=== PATIENT | female | born 1960 | race Caucasian/White ===

== ENCOUNTER → 2017-05-13 | Outpatient (CLI) | payer BC ==
[2015-09-26 15:10] VITALS: BP 130/61
[~2017-05-13] MED LIST: DULO60CA6 PO; ETAN50DI2 SQ; HYDR-971 PO; METR500T PO; PREG100C PO; SULF1TAB24 PO
--- NOTE | 2017-05-13 15:15 | RAD ---
Indication cough. A single view of the chest was obtained and is compared to a study 09/26/2015. There is no consolidated pneumonia. Heart size is similar. There is no gross congestive heart failure. No pleural fluid or pneumothorax is seen. IMPRESSION: No acute finding apparent in the chest.
== END | disposition home or self-care (01) ==
LOC: DXRADRC 13:34
PROVIDERS: ATTEND Family Medicine
DX: R49.0 Dysphonia (principal); R05 Cough
CPT/HCPCS: 71020

== ENCOUNTER 2017-07-11 17:43 | Inpatient (IN) | payer BC ==
[~2017-07-11] VITALS: Ht 157.5 cm; Wt 72.6 kg
[2017-07-11 02:00] VITALS: BP 112/70
[2017-07-11 18:57] LABS: BASO # 0.1 x10^3/uL (0.0-0.2); BASO % 1 % (0-3); EOS # 0.1 x10^3/uL (0.0-0.7); EOS % 1 % (0-3); HEMATOCRIT 40.3 % (36.0-47.0); HEMOGLOBIN 13.6 g/dL (12.0-15.5); LYMPH # 2.4 x10^3/uL (1.0-4.8); LYMPH % 29 % (24-48); MEAN CORPUSCULAR HEMOGLOBIN 33 pg (25-35); MEAN CORPUSCULAR HGB CONC 34 g/dL (31-37); MEAN CORPUSCULAR VOLUME 99 fL (79-100); MONO # 0.7 x10^3/uL (0.0-1.1); MONO % 9 % (0-9); NEUT % 61 % (31-73); PLATELET COUNT 231 x10^3/uL (140-400); RED BLOOD COUNT 4.06 x10^6/uL (3.50-5.40); RED CELL DISTRIBUTION WIDTH 15.5 % (11.5-14.5); WHITE BLOOD COUNT 8.2 x10^3/uL (4.0-11.0)
[2017-07-11] MEDS ORDERED: ASPIRIN 81 MG TAB.CHEW PO ONE (19:00)
[2017-07-11 19:09] LABS: ALBUMIN 3.5 g/dL (3.4-5.0); CALCIUM 8.7 mg/dL (8.5-10.1); CREATININE 0.7 mg/dL (0.6-1.0); GFR 86.2; TOTAL BILIRUBIN 0.4 mg/dL (0.2-1.0); TOTAL PROTEIN 6.9 g/dL (6.4-8.2)
[2017-07-11] MEDS ORDERED: methylPREDNISolone SOD SUCC PF 125 MG/2 ML VIAL. IV ONE (19:15)
[2017-07-11] MEDS ORDERED: IPRATRPIUM/ALBUTEROL 0.5/2.5MG 3 ML NEBU. NEB ONE (19:15)
[2017-07-11 19:44] LABS: AMPHETAMINE/METHAMPHETAMINE NEG (NEG); BARBITURATES NEG (NEG); BENZODIAZEPINES POS (NEG); CANNABINOIDS NEG (NEG); COCAINE NEG (NEG); METHADONE NEG (NEG); OPIATES NEG (NEG); PHENCYCLIDINE NEG (NEG)
[2017-07-11 19:45] LABS: POTASSIUM 3.5 mmol/L (3.5-5.1)
[2017-07-11] MEDS ORDERED: ONDANSETRON PF 4 MG/2 ML VIAL. IV PRN (19:45)
[2017-07-11] MEDS ORDERED: NITROGLYCERIN SUBLINGUAL 0.4 MG BOTTLE OF 25. SL PRN (19:45)
[2017-07-11] MEDS ORDERED: ACETAMINOPHEN 325 MG TABLET PO PRN (19:45)
[2017-07-11 19:48] LABS: BILIRUBIN,URINE NEG (NEG); CLARITY,URINE CLEAR; COLOR,URINE STRAW; GLUCOSE,URINE NEG (NEG)
[2017-07-11 19:49] LABS: BACTERIA,URINE 0 /HPF (0-FEW); NITRITE,URINE NEG (NEG); RBC,URINE RARE /HPF (0-2); SQUAMOUS EPITHELIAL CELL,UR OCC /LPF; UROBILINOGEN,URINE 0.2 mg/dL (0.2 mg/dL); WBC,URINE 0 /HPF (0-4)
[2017-07-11] MEDS: IPRATRPIUM/ALBUTEROL 0.5/2.5MG 3 ML NEBU. NEB SCH (20:00)
[2017-07-11 21:00] VITALS: BP 133/83
[2017-07-11] MEDS ORDERED: HYDR-2766 PO (21:53)
[2017-07-11 22:00] VITALS: BP 138/84
[2017-07-11] MEDS ORDERED: ANTI-COAG MONITOR BY PHARMACY. MC PRN (22:00)
[2017-07-11] MEDS ORDERED: TRAZ50TA15 PO (22:00)
[2017-07-11] MEDS ORDERED: PREG200C PO (22:02)
[2017-07-11] MEDS ORDERED: ALPR1TAB6 PO (22:08)
[2017-07-11] MEDS ORDERED: LEVO112T4 PO (22:14)
[2017-07-11] MEDS ORDERED: MOME13HF2 IH (22:14)
[2017-07-11] MEDS ORDERED: DULO60CA44 PO (22:14)
[2017-07-11] MEDS ORDERED: LISI1TAB5 PO (22:14)
--- NOTE | 2017-07-11 22:59 | EKG ---
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
[2017-07-11 23:00] VITALS: BP 134/82
[2017-07-11] MEDS: traZODone 50 MG TABLET. PO SCH (23:09)
[2017-07-11] MEDS: HYDROcodone/APAP 10/325 1 TAB TABLET PO PRN (23:10)
[2017-07-11] MEDS: ENOXAPARIN ** NOTE DOSE ** SYRINGE SQ SCH (23:11)
[2017-07-11] MEDS ORDERED: NON FORMULARY ITEM (Alprazolam 1 MG) PO SCH (23:15)
[2017-07-11] MEDS ORDERED: ALPRAZolam 0.5 MG TABLET PO SCH (23:15)
--- NOTE | 2017-07-11 23:58 | PHYS DOC ---
General Chief Complaint: SHORTNESS OF BREATH Stated Complaint: CP,SYNCOPE, ELEV TROP I ,RCE SWELLING Time Seen by MD: 18:40 Source: patient Exam Limitations: no limitations Problems: History of Present Illness Initial Comments Patient is a 57-year-old female who comes to the ED complaining of dyspnea. 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 She says that when she got up she felt unsteady and went to sit down to rest. She says that while sitting in a chair she had a syncopal episode however did not fall from the chair or suffer any further injury. Shortly after that she says she had a severe "asthma" attack described as shortness of breath no coughing or wheezing. She used her rescue inhaler and felt some improvement and went home where she had several beverages with honey and liquor mixed. Her symptoms persisted and she called her mother who advised her to come to the emergency department for evaluation. On arrival the patient feels as if she could just get a breathing treatment she would be better. She complains of shortness of breath, anterior chest tightness as well as throat discomfort and tightness. No arm symptoms nausea or diaphoresis. ED vitals: 99, 123, 150/103, 18, 95% room air Primary care physician is Dr. Miller. Patient's only prior cardiac workup consisted of an echocardiogram "years ago" Timing/Duration: 4-6 hours, constant Severity: moderate Modifying Factors: worse with movement, improves with rest Associated Symptoms: chest pain, malaise, shortness of breath, other Allergies: Coded Allergies: codeine (Unverified Allergy, Unknown, Nausea and Vomiting, 06/02/14) Past Medical History Medical History: other (asthma, fibromyalgia, hypertension, psoriatic arthritis ) Surgical History: noncontributory Family History Significant Family History: no pertinent family hx Social History Smoker: cigarettes Alcohol: occasionally Drugs: none Review of Systems Constitutional: denies chills, denies diaphoresis, denies fever, malaise Respiratory: see HPI Cardiovascular: see HPI Gastrointestinal: denies abdominal pain, denies nausea, denies vomiting Genitourinary: denies dysuria, denies frequency, denies hematuria Musculoskeletal: denies back pain, denies joint swelling, neck pain Psychiatric/Neurological: denies headache, denies numbness, denies paresthesia , denies weakness Hematologic/Lymphatic: denies blood clots, denies easy bleeding, denies easy bruising Physical Exam General Appearance: no apparent distress (EtOH odor, very talkative no apparent distress) Eyes: bilateral eye normal inspection, bilateral eye PERRL, bilateral eye EOMI Ear, Nose, Throat: hearing grossly normal, normal ENT inspection, normal pharynx, other (head is normocephalic/atraumatic) Neck: non-tender, supple Respiratory: chest non-tender, lungs clear, normal breath sounds, no respiratory distress Cardiovascular: normal peripheral pulses, tachycardia Gastrointestinal: non tender, soft Back: no CVA tenderness, no vertebral tenderness Extremities: normal range of motion, pelvis stable, other (right lower leg swelling and erythema, left lower leg is normal) Neurologic/Psychiatric: story analyst II-XII nml as tested, no motor/sensory deficits, alert, oriented x 3, other (mildly suspicious and paranoid, no slurring or discoordination noted) Skin: warm/dry Orders, Labs, Meds EKG: Sinus tachycardia 109 bpm normal axis no ST elevation as interpreted by me. Chest AP: Increased perihilar markings without definite consolidation, enlarged cardiac silhouette for portable study osseous structures unremarkable interpreted by me Pertinent labs: CBC unremarkable, lactic acid 2.2, troponin 0.105, BNP 75, serum alcohol had to be redrawn per lab and coags/urine studies are pending 1925: I discussed the patient with history of presentation and results with on- call credit underwriter Dr. Hill. After thorough discussion of the patient he recommends admission to [facility] with Lovenox anticoagulation, follow cardiac enzymes and consult cardiology for a.m. 1834: I discussed the patient with Dr. Ramirez who accepts inpatient ICU admission. He is agreeable to right leg Dopplers to rule out DVT and CTA of the chest. Impressions: Chest pain Dyspnea Right lower extremity swelling rule out DVT Elevated troponin demanded ischemia versus ACS Sinus tachycardia rule out PE Report of syncopal episode Alcohol intoxication Mechanical fall Departure Disposition: ADMITTED INPATIENT Condition: STABLE Additional Instructions: Inpatient ICU admission Dr Ramirez is accepting. WALLACE LAWTON DO Jul 11, 2017 23:58
[2017-07-12] VITALS (15 sets, daily range): BP systolic 85–129; BP diastolic 57–92
[2017-07-12] MEDS ORDERED: CONTRAST GIVEN MC PRN (03:15)
[2017-07-12] MEDS ORDERED: IOHEXOL 300 MG/ML 75 ML VIAL. IV ONE (03:30)
--- NOTE | 2017-07-12 05:04 | RAD ---
CTA scan of the Chest with Contrast (Pulmonary Embolism protocol) 07/12/2017 Clinical History: Shortness of breath with elevated d-dimer tachycardia. Technique: After the intravenous administration of 75 cc of Omnipaque 300, contiguous, 0.625 mm axial sections were obtained through the chest. 3 mm axial and 3D MIP coronal and sagittal reconstructed images were obtained. Findings: Branching filling defects are seen involving the distal main pulmonary arteries bilaterally extending to involve the left and right upper and lower lobe and right middle lobe pulmonary artery branches consistent with bilateral pulmonary emboli. The heart is borderline enlarged. The thoracic aorta tapers normally. Minimal dependent subsegmental atelectasis is seen involving both lungs. No area of consolidation is seen. No pneumothorax or pleural effusion is noted. IMPRESSION: Bilateral fairly extensive pulmonary emboli. The patient's nurse was notified of these findings. Electronically signed by: Mata Borges MD (07/12/2017 5:01 AM) [facility]
[2017-07-12] MEDS: LEVOTHYROXINE 112 MCG TABLET PO SCH (05:59)
[2017-07-12 06:35] LABS: CALCIUM 8.6 mg/dL (8.5-10.1); CREATININE 0.7 mg/dL (0.6-1.0); GFR 86.2
[2017-07-12 06:41] LABS: BASO % 1 % (0-3); EOS # 0.1 x10^3/uL (0.0-0.7); EOS % 1 % (0-3); HEMATOCRIT 38.6 % (36.0-47.0); HEMOGLOBIN 13.1 g/dL (12.0-15.5); LYMPH # 2.2 x10^3/uL (1.0-4.8); LYMPH % 29 % (24-48); MEAN CORPUSCULAR HEMOGLOBIN 34 pg (25-35); MEAN CORPUSCULAR HGB CONC 34 g/dL (31-37); MEAN CORPUSCULAR VOLUME 100 fL (79-100); MONO # 0.5 x10^3/uL (0.0-1.1); MONO % 7 % (0-9); NEUT # 4.7 x10^3uL (1.8-7.7); NEUT % 62 % (31-73); PLATELET COUNT 197 x10^3/uL (140-400); RED BLOOD COUNT 3.86 x10^6/uL (3.50-5.40); RED CELL DISTRIBUTION WIDTH 15.8 % (11.5-14.5); WHITE BLOOD COUNT 7.5 x10^3/uL (4.0-11.0)
[2017-07-12] MEDS: IPRATRPIUM/ALBUTEROL 0.5/2.5MG 3 ML NEBU. NEB SCH ×4 (08:00→20:08)
[2017-07-12] MEDS: ENOXAPARIN ** NOTE DOSE ** SYRINGE SQ SCH (08:07)
[2017-07-12] MEDS: DULoxetine HCL 60 MG CAPSULE.DR PO SCH (08:08)
[2017-07-12] MEDS ORDERED: PREGABALIN 100 MG CAPSULE PO ONE (08:30)
--- NOTE | 2017-07-12 08:42 | RAD ---
Portable chest, 07/11/2017: History: Shortness of breath, tachycardia The heart size and pulmonary vascularity are normal. The lungs are clear. There is no evidence of pleural fluid. IMPRESSION: No acute cardiopulmonary abnormality is detected.
[2017-07-12] MEDS ORDERED: NON FORMULARY ITEM (Etanercept (Enbrel) 50 MG) SQ SCH (09:00)
[2017-07-12] MEDS ORDERED: MOMETASONE IH SCH (09:00)
[2017-07-12] MEDS ORDERED: hydroCHLOROthiazide 12.5 MG CAPSULE PO SCH (09:00)
[2017-07-12] MEDS ORDERED: LISINOPRIL 20 MG TABLET PO SCH (09:00)
[2017-07-12] MEDS ORDERED: DULoxetine HCL 60 MG CAPSULE.DR PO SCH (09:00)
[2017-07-12] MEDS ORDERED: ALPRAZolam 0.5 MG TABLET PO SCH ×2 (09:00→21:00)
[2017-07-12] MEDS ORDERED: PREGABALIN 100 MG CAPSULE PO SCH (09:00)
[2017-07-12] MEDS ORDERED: FORMOTEROL IH SCH (09:00)
--- NOTE | 2017-07-12 09:39 | PDOC2 ---
WIL MENDOZA ACCESS REPRESENTATIVE 07/12/17 0939: CONSULT Date of Admission DATE: 07/12/17 TIME: 08:57 Reason for Consult: elevated trop Problem List Problems Medical Problems: (1) Chest pain Status: Acute (2) Elevated troponin Status: Acute History of Present Illness MS Moss is a 57 year old female who presented to the ED with complaints of dyspnea. She reports having started issues with dyspnea about 60 days ago and was treated with abx and inhalers. She believed she was having issues with asthma. She reports progressive dyspnea with associated mid chest tightness and palpitations over the last 2 months. She was at work yesterday and slipped and fell. She reports being helped right back up and then becoming more short of breath, sitting in a chair and having a syncopal episode but not falling from the chair. No loss of continence or bite of tongue. She sat for a few minutes and tried to go back to work but was increasingly short of breath so went home. She was advised by her mother to seek emergency care. She reports decreased functional capacity with shortness of breath just walking across the room. She denies orthopnea or PND. She reports some swelling in her legs, right greater than left. She denies any recent travel or surgery and she is not sedentary. She denies any chest discomfort prior to the last 60 days. She denies prior palpitations, lightheadedness, fever, chills or functional difficulties. 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 Current Medications Current Medications Aspirin (Children'S Aspirin) 324 mg 1X ONCE PO Last administered on t 18:53; Start 07/11/17 at 19:00; Stop 07/11/17 at 19:01; Status DC Methylprednisolone Sodium Succinate (SOLU-Medrol 125MG VIAL) 125 mg 1X ONCE IV ; Start 07/11/17 at 19:15; Stop 07/11/17 at 19:16; Status DC Albuterol/ Ipratropium (Duoneb) 3 ml 1X ONCE NEB ; Start 07/11/17 at 19:15; Stop 07/11/17 at 19:16; Status DC Ondansetron HCl (Zofran) 4 mg PRN Q4HRS PRN IV NAUSEA/VOMITING; Start at 19:45; Stop 07/12/17 at 19:44 Acetaminophen (Tylenol) 650 mg PRN Q4HRS PRN PO FEVER; Start 07/11/17 at 19:45 ; Stop 07/12/17 at 19:44 Nitroglycerin (Nitrostat) 0.4 mg PRN Q5MIN PRN SL CHEST PAIN; Start 07/11/17 at 19:45; Stop 07/12/17 at 19:44 Albuterol/ Ipratropium (Duoneb) 3 ml RTQID NEB ; Start 07/11/17 at 20:00 Enoxaparin Sodium (Lovenox 60mg Syringe) 60 mg Q12HR SQ Last administered on 08:07; Start 07/11/17 at 22:00; Stop 07/12/17 at 08:53; Status DC Info (Anti-Coagulation Monitoring By Pharmacy) 1 each PRN DAILY PRN MC SEE COMMENTS; Start 07/11/17 at 22:00 Acetaminophen/ Hydrocodone Bitart (Lortab 10/325) 1 tab PRN Q6HRS PRN PO SEVERE PAIN Last administered on 07/11/17 23:10; Start 07/11/17 at 22:30 Levothyroxine Sodium (Synthroid) 112 mcg DAILY06 PO Last administered on 05:59; Start 07/12/17 at 06:00 Trazodone HCl (Desyrel) 50 mg HS PO Last administered on 07/11/17 23:09; Start 07/11/17 at 23:30 Alprazolam (Xanax) 1 mg DAILY PO ; Start 07/12/17 at 09:00; Stop 07/12/17 at 09:00; Status DC Non-Formulary Medication 50 mg DAILY SQ ; Start 07/12/17 at 09:00; Stop at 09:00; Status DC Lisinopril (Prinivil) 20 mg DAILY PO ; Start 07/12/17 at 09:00 Non-Formulary Medication 100 mcg BID IH ; Start 07/12/17 at 09:00; Status UNV Pregabalin (Lyrica) 200 mg DAILY PO Last administered on 07/12/17 08:08; Start 07/12/17 at 09:00; Stop 07/12/17 at 09:00; Status DC Duloxetine HCl (Cymbalta) 60 mg DAILY PO Last administered on 07/12/17 08:08 ; Start 07/12/17 at 09:00 Duloxetine HCl (Cymbalta) 60 mg DAILY PO ; Start 07/12/17 at 09:00; Stop 07/12 at 09:00; Status DC Alprazolam (Xanax) 1 mg DAILY PO Last administered on 07/11/17 23:18; Start 07/11/17 at 23:15; Stop 07/12/17 at 08:18; Status DC Non-Formulary Medication 1 mg DAILY PO ; Start 07/11/17 at 23:15; Status UNV Hydrochlorothiazide (Microzide) 12.5 mg DAILY PO Last administered on 08:07; Start 07/12/17 at 09:00 Budesonide (Pulmicort) 0.5 mg RTBID NEB ; Start 07/12/17 at 08:00 Iohexol (Omnipaque 300 Mg/ml) 75 ml 1X ONCE IV Last administered on 04:03; Start 07/12/17 at 03:30; Stop 07/12/17 at 03:32; Status DC Info (Do NOT chart on this entry -- for MONITORING) 1 each PRN DAILY PRN MC SEE COMMENTS; Start 07/12/17 at 03:15; Stop 07/14/17 at 03:14 Alprazolam (Xanax) 1 mg HS PO ; Start 07/12/17 at 21:00 Pregabalin (Lyrica) 400 mg DAILY PO ; Start 07/13/17 at 09:00 Pregabalin (Lyrica) 200 mg 1X ONCE PO Last administered on 07/12/17 08:29; Start 07/12/17 at 08:30; Stop 07/12/17 at 08:31; Status DC Rivaroxaban (Xarelto) 15 mg BIDWMEALS PO ; Start 07/12/17 at 17:00 Active Scripts Active [place] 5-325 Tablet (Hydrocodone Bit/Acetaminophen) 1 Each Tablet 1 Tab PO PRN Q6HRS PRN Bactrim Ds Tablet (Sulfamethoxazole/Trimethoprim) 1 Each Tablet 1 Tab PO BID Reported Duloxetine Hcl 60 Mg Capsule. 60 Mg PO DAILY Dulera 100 Mcg/5 Mcg Inhaler (Mometasone/Formoterol) 13 Gm Hfa.aer.ad 100 Mcg IH BID Lisinopril-Hctz 20-12.5 Mg Tab (Lisinopril/Hydrochlorothiazide) 1 Each Tablet 20 Mg PO DAILY Levothyroxine Sodium 112 Mcg Tablet 112 PO DAILY06 Alprazolam 1 Mg Tablet 1 Mg PO DAILY Lyrica (Pregabalin) 200 Mg Capsule 200 Mg PO DAILY Trazodone Hcl 50 Mg Tablet 50 Mg PO HS Hydrocodone-Apap 10-325 (Hydrocodone Bit/Acetaminophen) 1 Each Tablet 10 PO PRN 7 Days Cymbalta (Duloxetine Hcl) 60 Mg Capsule. 60 Mg PO DAILY Enbrel (Etanercept) 50 Mg/1 Ml Disp.syrin 50 Mg SQ DAILY Allergies: Coded Allergies: codeine (Unverified Allergy, Mild, Nausea and Vomiting, 07/12/17) Review of System as per HPI or negative General: Alert, Oriented X3, Cooperative, Other (becomes mildly dyspenic with conversation) HEENT: Atraumatic, EOMI, Mucous membr. moist/pink, Other (no HJR) Lungs: Clear to auscultation Heart: Regular rate, Normal S1, Normal S2, Other (no obvious murmurs, no gallops, clicks or rubs) Abdomen: Normal bowel sounds, Soft Extremities: No cyanosis, Normal pulses, Other (RLE trace edema and larger than LLE) Neuro: Normal speech (hoarse), Strength at 5/5 X4 ext Psych/Mental Status: Mental status NL, Mood NL VITALS Vital Signs Date Time Temp Pulse Resp B/P (MAP) Pulse Ox O2 Delivery O2 Flow Rate FiO2 07/12/17 06:16 98.8 95 19 96/63 (74) 97 Room Air Labs Laboratory Tests Test 07/11/17 17:22 07/11/17 18:05 07/11/17 19:14 07/11/17 22:40 Urine Collection Type Unknown Urine Color Straw Urine Clarity Clear Urine pH 5.5 Urine Specific [place] <=1.005 Urine Protein Neg (NEG-TRACE) Urine Glucose (UA) Neg mg/dL (NEG) Urine Ketones (Stick) Neg mg/dL (NEG) Urine Blood Trace (NEG) Urine Nitrite Neg (NEG) Urine Bilirubin Neg (NEG) Urine Urobilinogen Dipstick 0.2 mg/dL (0.2 mg/dL) Urine Leukocyte Esterase Neg (NEG) Urine RBC Rare /HPF (0-2) Urine WBC 0 /HPF (0-4) Urine Squamous Epithelial Cells Occ /LPF Urine Bacteria 0 /HPF (0-FEW) White Blood Count 8.2 x10^3/uL (4.0-11.0) Red Blood Count 4.06 x10^6/uL (3.50-5.40) Hemoglobin 13.6 g/dL (12.0-15.5) Hematocrit 40.3 % (36.0-47.0) Mean Corpuscular Volume 99 fL (79-100) Mean Corpuscular Hemoglobin 33 pg (25-35) Mean Corpuscular Hemoglobin Concent 34 g/dL (31-37) Red Cell Distribution Width 15.5 % (11.5-14.5) Platelet Count 231 x10^3/uL (140-400) Neutrophils (%) (Auto) 61 % (31-73) Lymphocytes (%) (Auto) 29 % (24-48) Monocytes (%) (Auto) 9 % (0-9) Eosinophils (%) (Auto) 1 % (0-3) Basophils (%) (Auto) 1 % (0-3) Neutrophils # (Auto) 5.0 x10^3uL (1.8-7.7) Lymphocytes # (Auto) 2.4 x10^3/uL (1.0-4.8) Monocytes # (Auto) 0.7 x10^3/uL (0.0-1.1) Eosinophils # (Auto) 0.1 x10^3/uL (0.0-0.7) Basophils # (Auto) 0.1 x10^3/uL (0.0-0.2) D-Dimer (Leyda) 3.81 mg/L (0.00-0.50) Sodium Level 138 mmol/L (136-145) Potassium Level 3.5 mmol/L (3.5-5.1) Chloride Level 102 mmol/L (98-107) Carbon Dioxide Level 23 mmol/L (21-32) Anion Gap 13 (6-14) Blood Urea Nitrogen 11 mg/dL (7-20) Creatinine 0.7 mg/dL (0.6-1.0) Estimated GFR (Cockcroft-Gault) 86.2 BUN/Creatinine Ratio 16 (6-20) Glucose Level 93 mg/dL (70-99) Lactic Acid Level 2.2 mmol/L (0.4-2.0) 1.3 mmol/L (0.4-2.0) Calcium Level 8.7 mg/dL (8.5-10.1) Total Bilirubin 0.4 mg/dL (0.2-1.0) Aspartate Amino Transf (AST/SGOT) 22 U/L (15-37) Alanine Aminotransferase (ALT/SGPT) 25 U/L (14-59) Alkaline Phosphatase 80 U/L (46-116) Creatine Kinase 162 U/L (26-192) Troponin I Quantitative 0.105 ng/mL (0-0.055) TB-Fec-V-Type Natriuretic Peptide 75 pg/mL (0-124) Total Protein 6.9 g/dL (6.4-8.2) Albumin 3.5 g/dL (3.4-5.0) Albumin/Globulin Ratio 1.0 (1.0-1.7) Urine Opiates Screen Neg (NEG) Urine Methadone Screen Neg (NEG) Urine Barbiturates Neg (NEG) Urine Phencyclidine Screen Neg (NEG) Urine Amphetamine/Methamphetamine Neg (NEG) Urine Benzodiazepines Screen Pos (NEG) Urine Cocaine Screen Neg (NEG) Urine Cannabinoids Screen Neg (NEG) Urine Ethyl Alcohol Pos (NEG) Ethyl Alcohol Level 91 mg/dL (0-10) Test 07/11/17 22:41 07/12/17 05:58 Troponin I Quantitative 0.260 ng/mL (0-0.055) 0.138 ng/mL (0-0.055) White Blood Count 7.5 x10^3/uL (4.0-11.0) Red Blood Count 3.86 x10^6/uL (3.50-5.40) Hemoglobin 13.1 g/dL (12.0-15.5) Hematocrit 38.6 % (36.0-47.0) Mean Corpuscular Volume 100 fL (79-100) Mean Corpuscular Hemoglobin 34 pg (25-35) Mean Corpuscular Hemoglobin Concent 34 g/dL (31-37) Red Cell Distribution Width 15.8 % (11.5-14.5) Platelet Count 197 x10^3/uL (140-400) Neutrophils (%) (Auto) 62 % (31-73) Lymphocytes (%) (Auto) 29 % (24-48) Monocytes (%) (Auto) 7 % (0-9) Eosinophils (%) (Auto) 1 % (0-3) Basophils (%) (Auto) 1 % (0-3) Neutrophils # (Auto) 4.7 x10^3uL (1.8-7.7) Lymphocytes # (Auto) 2.2 x10^3/uL (1.0-4.8) Monocytes # (Auto) 0.5 x10^3/uL (0.0-1.1) Eosinophils # (Auto) 0.1 x10^3/uL (0.0-0.7) Basophils # (Auto) 0.0 x10^3/uL (0.0-0.2) Sodium Level 141 mmol/L (136-145) Potassium Level 4.0 mmol/L (3.5-5.1) Chloride Level 104 mmol/L (98-107) Carbon Dioxide Level 27 mmol/L (21-32) Anion Gap 10 (6-14) Blood Urea Nitrogen 9 mg/dL (7-20) Creatinine 0.7 mg/dL (0.6-1.0) Estimated GFR (Cockcroft-Gault) 86.2 Glucose Level 107 mg/dL (70-99) Calcium Level 8.6 mg/dL (8.5-10.1) Images EKG - sinus tachycardia without acute changes CT - IMPRESSION: Bilateral fairly extensive pulmonary emboli. CXR - no acute abn Assessment/Plan 1. bilateral PE - Xarelto for 6 months, check DVT sono. mgmt per IM/PCP. 2. chest pain and mildly elevated troponin - likely secondary to PE. No acute EKG changes. Suggest echocardiogram for LV function and wall motion. IF no acute abn, would suggest outpatient MPI when PE resolved. Check lipids. 3. hypertension - blood pressure has been low to low normal. Suggest stop HCTZ and reduce dose of lisinopril. Problems: ANDRY CONCEPCION MD 07/12/17 1734: CONSULT Allergies: Coded Allergies: codeine (Unverified Allergy, Mild, Nausea and Vomiting, 07/12/17) Assessment/Plan Patient seen and examined. Agree with above nurse practitioner note with the following comments 57-year-old woman presenting with extensive DVT and multiple bilateral pulmonary emboli in the setting of an unprovoked situation. There is no clear provoking factor at this time based on her history and physical examination. Her troponin elevation likely secondary to her massive pulmonary emboli. Supportive care and continue anticoagulation with an outpatient evaluation for ischemia if necessary based on symptoms. Whether she needs a IVC filter is controversial. Although there is no robust data to support IVC filter placement in summary who couldn't tolerate anticoagulation, given her extensive proximal DVT as well as multiple pulmonary emboli although she may not exactly qualify as massive pulmonary embolus given her presentation with syncope it would warrant consideration of an IVC filter. We will defer to PCP and pulmonary service. Thank you for this consultation. Problems: WIL MENDOZA APRN Jul 12, 2017 09:39 ANDRY CONCEPCION MD Jul 12, 2017 17:34
[2017-07-12] MEDS: BUDESONIDE 0.5 MG/2 ML NEBU NEB SCH ×2 (10:26→20:08)
[2017-07-12] MEDS: HYDROcodone/APAP 10/325 1 TAB TABLET PO PRN ×2 (10:26→16:59)
[2017-07-12] MEDS ORDERED: RIVAROXABAN 15 MG TABLET. PO SCH (11:00)
[2017-07-12] MEDS: RIVAROXABAN 15 MG TABLET. PO SCH ×2 (11:21→17:59)
[2017-07-12] MEDS ORDERED: methylPREDNISolone SOD SUCC PF 125 MG/2 ML VIAL. IV ONE (11:45)
--- NOTE | 2017-07-12 15:26 | CARD ---
APPROVED REPORT EXAM: Two-dimensional and M-mode echocardiogram with Doppler and color Doppler. Other Information Quality : Good INDICATION Chest Pain 2D DIMENSIONS RVDd3.4 (2.9-3.5cm)Left Atrium(2D)3.1 (1.6-4.0cm) IVSd1.1 (0.7-1.1cm)Aortic Root(2D)2.7 (2.0-3.7cm) LVDd3.9 (3.9-5.9cm)LVOT Diameter2.0 (1.8-2.4cm) PWd1.1 (0.7-1.1cm)LVDs2.7 (2.5-4.0cm) FS (%) 29.4 %SV36.9 ml LVEF(%)60.0 (>50%) Aortic Valve AoV Peak Abhay.161.4cm/sAoV VTI23.6cm AO Peak GR.10.4mmHgLVOT Peak Abhay.124.9cm/s LVOT VTI 21.21cmAO Mean GR.7mmHg BESS (VMAX)2.59oe6CKT (VTI)2.87cm2 Mitral Valve MV E Akogrteg23.0cm/sMV DECEL RBOU780oi MV A Etwqwysj959.5cm/sE/A Ratio0.6 Tricuspid Valve TR P. Jeyqecdh883ma/sRAP PDLBGDCP5vuHv TR Peak Gr.28zrRpMEOX25chAu LEFT VENTRICLE The left ventricle is normal size. There is normal left ventricular wall thickness. The left ventricu lar systolic function is normal and the ejection fraction is within normal range. The Ejection Fracti on is 60-65%. There is normal LV segmental wall motion. Transmitral Doppler flow pattern is Grade I-a bnormal relaxation pattern. RIGHT VENTRICLE The right ventricle is normal size. The right ventricular systolic function is normal. ATRIA The left atrium size is normal. The right atrium size is normal. The interatrial septum is intact wit h no evidence for an atrial septal defect or patent foramen ovale as noted on 2-D or Doppler imaging. AORTIC VALVE The aortic valve is calcified but opens well. Doppler and Color Flow revealed no significant aortic r egurgitation. There is no significant aortic valvular stenosis. MITRAL VALVE The mitral valve is calcified but opens well. There is no evidence of mitral valve prolapse. There is no mitral valve stenosis. Doppler and Color Flow revealed no mitral valve regurgitation noted. TRICUSPID VALVE The tricuspid valve is normal in structure and function. Doppler and Color Flow revealed mild tricusp id regurgitation.There is mild-moderate pulmonary hypertension.The PA pressure was estimated at 42 mm Hg. There is no tricuspid valve stenosis. PULMONIC VALVE Doppler and Color Flow revealed no pulmonic valvular regurgitation. There is no pulmonic valvular yuly nosis. GREAT VESSELS The aortic root is normal in size. The ascending aorta is normal in size. The IVC is normal in size a nd collapses >50% with inspiration. PERICARDIAL EFFUSION There is no evidence of significant pericardial effusion. Critical Notification Critical Value: No <Conclusion> The left ventricular systolic function is normal and the ejection fraction is within normal range. Th e Ejection Fraction is 60-65%. There is normal LV segmental wall motion. The right ventricle is normal size. The right ventricular systolic function is normal. Doppler and Color Flow revealed mild tricuspid regurgitation.There is mild-moderate pulmonary hyperte nsion.The PA pressure was estimated at 42 mmHg.
--- NOTE | 2017-07-12 16:20 | RAD ---
Indication: Right leg swelling. Technique: Grayscale, color-flow, and spectral waveform analysis was performed. Findings: The exam is positive for deep vein thrombosis throughout the right lower extremity from the posterior tibial veins through the common femoral vein. Great saphenous vein is patent. Thrombus on grayscale and color imaging is noted throughout. Impression: Exam is positive for deep vein thrombosis throughout the right lower extremity.
--- NOTE | 2017-07-12 18:26 | HP ---
ADMIT DATE: 07/11/2017 REASON FOR ADMISSION: This is a 57-year-old female who states for the last 60 days or so, she has had some chronic hoarseness which she attributed to allergies, some congestion, a little bit of shortness of breath, a little bit of chest pain, some clear sputum. She has been treated in the office for these symptoms. She did get the flu shot this year. 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 She waited a little bit and tried to resume work, was unable to do so, she felt so short of breath. She has been using an albuterol inhaler quite a bit over the last 2 months. She has also gotten some steroid shot. PAST MEDICAL HISTORY: In the past, she has had psoriatic arthritis, she has been on Enbrel, also Remicade. Other problems include fibromyalgia, tobacco use disorder. FAMILY HISTORY: Brother has asthma. There are strokes in the men. No history of clotting disorders. 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 She smokes 10 cigarettes a day. She has not traveled. She has not been in a long car ride, has not been on an airplane. Her job is not sedentary. PAST SURGICAL HISTORY: None except for benign tumor removal. REVIEW OF SYSTEMS: Positive for hoarseness over the last 2 months. Denies current problems with her bowel or bladder. Denies weight loss. Positive shortness of breath. Positive chest pain. Positive allergy symptoms. Positive slight sore throat. OBJECTIVE: VITAL SIGNS: Blood pressure 129/75, pulse 99, temperature 98.3, pulse ox is 99% on room air. GENERAL: She is a little bit nervous. HEENT: Hearing is normal. Her eyes were clear. Nose is patent. Throat was clear. Her voice is definitely hoarse. NECK: Supple, without adenopathy. LUNGS: Clear to auscultation. CARDIOVASCULAR: Regular rhythm and rate. ABDOMEN: Soft, nontender. EXTREMITIES: The right leg is bigger than the left. Negative Homans' bilaterally, slightly swollen legs bilaterally, nontender. IMAGING: Chest CT shows bilateral extensive pulmonary emboli. Lower extremity ultrasound shows a DVT right lower extremity throughout the posterior tibial veins and the common femoral vein. LABORATORY DATA: Her CBC is unremarkable. Troponin 0.260, then 0.138. Lactic acid was 2.2, now is 1.3. She did have a little bit of alcohol from drinking for her cough. ASSESSMENT: 1. Extensive pulmonary embolism. 2. Mild pulmonary hypertension with a pressure of 42. 3. Right lower extremity deep venous thrombosis, questionable etiology. 4. Elevated troponin. 5. Tobacco use disorder. 6. Hoarseness. PLAN: Neck CT, spoke with Dr. Talley. We will check the CT for PE burden. Cardiology also assisting. May consider a filter if necessary and she has been started on Xarelto and has had a couple of shots of Lovenox. ANA JOHNSON DO DR: PAULA/mathew JOB#: [id number] / [id number]
[2017-07-12] MEDS ORDERED: PNEUMOCOCCAL VAX SCREEN. MC PRN (18:30)
[2017-07-12] MEDS: traZODone 50 MG TABLET. PO SCH (20:52)
[2017-07-13 00:23] VITALS: BP 98/67
[2017-07-13 04:45] VITALS: BP 113/67
[2017-07-13] MEDS: LEVOTHYROXINE 112 MCG TABLET PO SCH (05:31)
[2017-07-13] MEDS: IPRATRPIUM/ALBUTEROL 0.5/2.5MG 3 ML NEBU. NEB SCH ×3 (05:36→15:20)
[2017-07-13] MEDS: HYDROcodone/APAP 10/325 1 TAB TABLET PO PRN (06:47)
[2017-07-13 06:56] LABS: BASO % 1 % (0-3); EOS % 0 % (0-3); HEMATOCRIT 38.2 % (36.0-47.0); HEMOGLOBIN 13.1 g/dL (12.0-15.5); LYMPH # 1.3 x10^3/uL (1.0-4.8); LYMPH % 17 % (24-48); MEAN CORPUSCULAR HEMOGLOBIN 35 pg (25-35); MEAN CORPUSCULAR HGB CONC 34 g/dL (31-37); MEAN CORPUSCULAR VOLUME 100 fL (79-100); MONO # 0.5 x10^3/uL (0.0-1.1); MONO % 6 % (0-9); NEUT # 5.8 x10^3uL (1.8-7.7); NEUT % 76 % (31-73); PLATELET COUNT 239 x10^3/uL (140-400); RED BLOOD COUNT 3.81 x10^6/uL (3.50-5.40); RED CELL DISTRIBUTION WIDTH 15.8 % (11.5-14.5); WHITE BLOOD COUNT 7.6 x10^3/uL (4.0-11.0)
[2017-07-13 07:16] LABS: ALBUMIN 3.4 g/dL (3.4-5.0); ALBUMIN/GLOBULIN RATIO 0.9 (1.0-1.7); CALCIUM 9.1 mg/dL (8.5-10.1); CREATININE 0.7 mg/dL (0.6-1.0); GFR 86.2; MAGNESIUM 2.3 mg/dL (1.8-2.4); POTASSIUM 4.1 mmol/L (3.5-5.1); TOTAL BILIRUBIN 0.3 mg/dL (0.2-1.0)
[2017-07-13] MEDS ORDERED: PREGABALIN 100 MG CAPSULE PO SCH (09:00)
[2017-07-13] MEDS ORDERED: LISINOPRIL 10 MG TABLET PO SCH (09:00)
[2017-07-13] MEDS ORDERED: PNEUMOC CONJ VACC 23-VALENT 0.5 ML VIAL. VAX IM ONE (09:00)
[2017-07-13] MEDS ORDERED: IOHEXOL 300 MG/ML 75 ML VIAL. IV ONE (09:00)
--- NOTE | 2017-07-13 09:07 | PDOC ---
PROGRESS NOTES Diagnosis Problem Problems Medical Problems: (1) Chest pain Status: Acute (2) Elevated troponin Status: Acute Assessment Problems Medical Problems: (1) Chest pain Status: Acute (2) Elevated troponin Status: Acute 1. bilateral PE and extensive DVT - Unclear cause. Anticoagulation at least 6 months, prob lifelong. ? possible IVC filter. as per IM, awaiting PE burden on CT. 2. chest pain and mildly elevated troponin - likely secondary to PE. No acute EKG changes. Normal LV function and wall motion by echo. Follow up outpatient and consider MPI when PE resolved. 3. hypertension - controlled on current medical therapy. Problems: Subjective restless, worried about going back to work. continues to be hoarse with a cough Objective tele - sinus tachycardia without ectopy Vital Signs Date Time Temp Pulse Resp B/P (MAP) Pulse Ox O2 Delivery O2 Flow Rate FiO2 07/13/17 07:47 96 Room Air 07/13/17 06:47 20 2.0 07/13/17 04:45 97.5 85 113/67 (82) Intake and Output 07/13/17 07:00 Intake Total 2090 ml Output Total 2550 ml Balance -460 ml Intake Oral 2090 ml Output Urine Total 2550 ml # Voids 1 Abdomen: Normal bowel sounds, Soft, No tenderness Heart: Regular rate, Normal S1, Normal S2 Extremities: Normal pulses, Other (RLE>LLE) General: Alert, Oriented X3, Cooperative, No acute distress HEENT: Atraumatic, Mucous membr. moist/pink Lungs: Clear to auscultation Neuro: Normal speech Psych/Mental Status: Mental status NL, Mood NL Review of Relevant I have reviewed the following items gabriella (where applicable) has been applied. Labs Laboratory Tests Test 07/11/17 17:22 07/11/17 18:05 07/11/17 19:14 07/11/17 21:30 Urine Collection Type Unknown Urine Color Straw Urine Clarity Clear Urine pH 5.5 Urine Specific [place] <=1.005 Urine Protein Neg (NEG-TRACE) Urine Glucose (UA) Neg mg/dL (NEG) Urine Ketones (Stick) Neg mg/dL (NEG) Urine Blood Trace (NEG) Urine Nitrite Neg (NEG) Urine Bilirubin Neg (NEG) Urine Urobilinogen Dipstick 0.2 mg/dL (0.2 mg/dL) Urine Leukocyte Esterase Neg (NEG) Urine RBC Rare /HPF (0-2) Urine WBC 0 /HPF (0-4) Urine Squamous Epithelial Cells Occ /LPF Urine Bacteria 0 /HPF (0-FEW) White Blood Count 8.2 x10^3/uL (4.0-11.0) Red Blood Count 4.06 x10^6/uL (3.50-5.40) Hemoglobin 13.6 g/dL (12.0-15.5) Hematocrit 40.3 % (36.0-47.0) Mean Corpuscular Volume 99 fL (79-100) Mean Corpuscular Hemoglobin 33 pg (25-35) Mean Corpuscular Hemoglobin Concent 34 g/dL (31-37) Red Cell Distribution Width 15.5 % (11.5-14.5) Platelet Count 231 x10^3/uL (140-400) Neutrophils (%) (Auto) 61 % (31-73) Lymphocytes (%) (Auto) 29 % (24-48) Monocytes (%) (Auto) 9 % (0-9) Eosinophils (%) (Auto) 1 % (0-3) Basophils (%) (Auto) 1 % (0-3) Neutrophils # (Auto) 5.0 x10^3uL (1.8-7.7) Lymphocytes # (Auto) 2.4 x10^3/uL (1.0-4.8) Monocytes # (Auto) 0.7 x10^3/uL (0.0-1.1) Eosinophils # (Auto) 0.1 x10^3/uL (0.0-0.7) Basophils # (Auto) 0.1 x10^3/uL (0.0-0.2) D-Dimer (Leyda) 3.81 mg/L (0.00-0.50) Sodium Level 138 mmol/L (136-145) Potassium Level 3.5 mmol/L (3.5-5.1) Chloride Level 102 mmol/L (98-107) Carbon Dioxide Level 23 mmol/L (21-32) Anion Gap 13 (6-14) Blood Urea Nitrogen 11 mg/dL (7-20) Creatinine 0.7 mg/dL (0.6-1.0) Estimated GFR (Cockcroft-Gault) 86.2 BUN/Creatinine Ratio 16 (6-20) Glucose Level 93 mg/dL (70-99) Lactic Acid Level 2.2 mmol/L (0.4-2.0) Calcium Level 8.7 mg/dL (8.5-10.1) Total Bilirubin 0.4 mg/dL (0.2-1.0) Aspartate Amino Transf (AST/SGOT) 22 U/L (15-37) Alanine Aminotransferase (ALT/SGPT) 25 U/L (14-59) Alkaline Phosphatase 80 U/L (46-116) Creatine Kinase 162 U/L (26-192) Troponin I Quantitative 0.105 ng/mL (0-0.055) OA-Mof-O-Type Natriuretic Peptide 75 pg/mL (0-124) Total Protein 6.9 g/dL (6.4-8.2) Albumin 3.5 g/dL (3.4-5.0) Albumin/Globulin Ratio 1.0 (1.0-1.7) Urine Opiates Screen Neg (NEG) Urine Methadone Screen Neg (NEG) Urine Barbiturates Neg (NEG) Urine Phencyclidine Screen Neg (NEG) Urine Amphetamine/Methamphetamine Neg (NEG) Urine Benzodiazepines Screen Pos (NEG) Urine Cocaine Screen Neg (NEG) Urine Cannabinoids Screen Neg (NEG) Urine Ethyl Alcohol Pos (NEG) Ethyl Alcohol Level 91 mg/dL (0-10) Nasal Screen MRSA (PCR) Negative (Negative) Test 07/11/17 22:40 07/11/17 22:41 07/12/17 05:58 07/13/17 06:41 Lactic Acid Level 1.3 mmol/L (0.4-2.0) Troponin I Quantitative 0.260 ng/mL (0-0.055) 0.138 ng/mL (0-0.055) White Blood Count 7.5 x10^3/uL (4.0-11.0) 7.6 x10^3/uL (4.0-11.0) Red Blood Count 3.86 x10^6/uL (3.50-5.40) 3.81 x10^6/uL (3.50-5.40) Hemoglobin 13.1 g/dL (12.0-15.5) 13.1 g/dL (12.0-15.5) Hematocrit 38.6 % (36.0-47.0) 38.2 % (36.0-47.0) Mean Corpuscular Volume 100 fL (79-100) 100 fL (79-100) Mean Corpuscular Hemoglobin 34 pg (25-35) 35 pg (25-35) Mean Corpuscular Hemoglobin Concent 34 g/dL (31-37) 34 g/dL (31-37) Red Cell Distribution Width 15.8 % (11.5-14.5) 15.8 % (11.5-14.5) Platelet Count 197 x10^3/uL (140-400) 239 x10^3/uL (140-400) Neutrophils (%) (Auto) 62 % (31-73) 76 % (31-73) Lymphocytes (%) (Auto) 29 % (24-48) 17 % (24-48) Monocytes (%) (Auto) 7 % (0-9) 6 % (0-9) Eosinophils (%) (Auto) 1 % (0-3) 0 % (0-3) Basophils (%) (Auto) 1 % (0-3) 1 % (0-3) Neutrophils # (Auto) 4.7 x10^3uL (1.8-7.7) 5.8 x10^3uL (1.8-7.7) Lymphocytes # (Auto) 2.2 x10^3/uL (1.0-4.8) 1.3 x10^3/uL (1.0-4.8) Monocytes # (Auto) 0.5 x10^3/uL (0.0-1.1) 0.5 x10^3/uL (0.0-1.1) Eosinophils # (Auto) 0.1 x10^3/uL (0.0-0.7) 0.0 x10^3/uL (0.0-0.7) Basophils # (Auto) 0.0 x10^3/uL (0.0-0.2) 0.0 x10^3/uL (0.0-0.2) Sodium Level 141 mmol/L (136-145) 142 mmol/L (136-145) Potassium Level 4.0 mmol/L (3.5-5.1) 4.1 mmol/L (3.5-5.1) Chloride Level 104 mmol/L (98-107) 106 mmol/L (98-107) Carbon Dioxide Level 27 mmol/L (21-32) 24 mmol/L (21-32) Anion Gap 10 (6-14) 12 (6-14) Blood Urea Nitrogen 9 mg/dL (7-20) 14 mg/dL (7-20) Creatinine 0.7 mg/dL (0.6-1.0) 0.7 mg/dL (0.6-1.0) Estimated GFR (Cockcroft-Gault) 86.2 86.2 Glucose Level 107 mg/dL (70-99) 150 mg/dL (70-99) Calcium Level 8.6 mg/dL (8.5-10.1) 9.1 mg/dL (8.5-10.1) BUN/Creatinine Ratio 20 (6-20) Magnesium Level 2.3 mg/dL (1.8-2.4) Total Bilirubin 0.3 mg/dL (0.2-1.0) Aspartate Amino Transf (AST/SGOT) 11 U/L (15-37) Alanine Aminotransferase (ALT/SGPT) 23 U/L (14-59) Alkaline Phosphatase 82 U/L (46-116) Total Protein 7.0 g/dL (6.4-8.2) Albumin 3.4 g/dL (3.4-5.0) Albumin/Globulin Ratio 0.9 (1.0-1.7) Medications Current Medications Aspirin (Children'S Aspirin) 324 mg 1X ONCE PO Last administered on t 18:53; Start 07/11/17 at 19:00; Stop 07/11/17 at 19:01; Status DC Methylprednisolone Sodium Succinate (SOLU-Medrol 125MG VIAL) 125 mg 1X ONCE IV ; Start 07/11/17 at 19:15; Stop 07/11/17 at 19:16; Status DC Albuterol/ Ipratropium (Duoneb) 3 ml 1X ONCE NEB ; Start 07/11/17 at 19:15; Stop 07/11/17 at 19:16; Status DC Ondansetron HCl (Zofran) 4 mg PRN Q4HRS PRN IV NAUSEA/VOMITING; Start at 19:45; Stop 07/12/17 at 19:44; Status DC Acetaminophen (Tylenol) 650 mg PRN Q4HRS PRN PO FEVER; Start 07/11/17 at 19:45 ; Stop 07/12/17 at 19:44; Status DC Nitroglycerin (Nitrostat) 0.4 mg PRN Q5MIN PRN SL CHEST PAIN; Start 07/11/17 at 19:45; Stop 07/12/17 at 19:44; Status DC Albuterol/ Ipratropium (Duoneb) 3 ml RTQID NEB Last administered on 07/13/17 05:36; Start 07/11/17 at 20:00 Enoxaparin Sodium (Lovenox 60mg Syringe) 60 mg Q12HR SQ Last administered on 08:07; Start 07/11/17 at 22:00; Stop 07/12/17 at 08:53; Status DC Info (Anti-Coagulation Monitoring By Pharmacy) 1 each PRN DAILY PRN MC SEE COMMENTS; Start 07/11/17 at 22:00 Acetaminophen/ Hydrocodone Bitart (Lortab 10/325) 1 tab PRN Q6HRS PRN PO SEVERE PAIN Last administered on 07/13/17 06:47; Start 07/11/17 at 22:30 Levothyroxine Sodium (Synthroid) 112 mcg DAILY06 PO Last administered on 05:31; Start 07/12/17 at 06:00 Trazodone HCl (Desyrel) 50 mg HS PO Last administered on 07/12/17 20:52; Start 07/11/17 at 23:30 Alprazolam (Xanax) 1 mg DAILY PO ; Start 07/12/17 at 09:00; Stop 07/12/17 at 09:00; Status DC Non-Formulary Medication 50 mg DAILY SQ ; Start 07/12/17 at 09:00; Stop at 09:00; Status DC Lisinopril (Prinivil) 20 mg DAILY PO ; Start 07/12/17 at 09:00; Stop 07/12/17 at 10:00; Status DC Non-Formulary Medication 100 mcg BID IH ; Start 07/12/17 at 09:00; Status UNV Pregabalin (Lyrica) 200 mg DAILY PO Last administered on 07/12/17 08:08; Start 07/12/17 at 09:00; Stop 07/12/17 at 09:00; Status DC Duloxetine HCl (Cymbalta) 60 mg DAILY PO Last administered on 07/12/17 08:08 ; Start 07/12/17 at 09:00 Duloxetine HCl (Cymbalta) 60 mg DAILY PO ; Start 07/12/17 at 09:00; Stop 07/12 at 09:00; Status DC Alprazolam (Xanax) 1 mg DAILY PO Last administered on 07/11/17 23:18; Start 07/11/17 at 23:15; Stop 07/12/17 at 08:18; Status DC Non-Formulary Medication 1 mg DAILY PO ; Start 07/11/17 at 23:15; Status UNV Hydrochlorothiazide (Microzide) 12.5 mg DAILY PO ; Start 07/12/17 at 09:00; Stop 07/12/17 at 10:00; Status DC Budesonide (Pulmicort) 0.5 mg RTBID NEB Last administered on 07/12/17 20:08; Start 07/12/17 at 08:00 Iohexol (Omnipaque 300 Mg/ml) 75 ml 1X ONCE IV Last administered on 04:03; Start 07/12/17 at 03:30; Stop 07/12/17 at 03:32; Status DC Info (Do NOT chart on this entry -- for MONITORING) 1 each PRN DAILY PRN MC SEE COMMENTS; Start 07/12/17 at 03:15; Stop 07/14/17 at 03:14 Alprazolam (Xanax) 1 mg HS PO Last administered on 07/12/17 20:52; Start 06/18 at 21:00 Pregabalin (Lyrica) 400 mg DAILY PO ; Start 07/13/17 at 09:00 Pregabalin (Lyrica) 200 mg 1X ONCE PO Last administered on 07/12/17 08:29; Start 07/12/17 at 08:30; Stop 07/12/17 at 08:31; Status DC Rivaroxaban (Xarelto) 15 mg BIDWMEALS PO Last administered on 07/12/17 17:59 ; Start 07/12/17 at 11:00 Lisinopril (Prinivil) 10 mg DAILY PO ; Start 07/13/17 at 09:00 Rivaroxaban (Xarelto) 15 mg BIDWMEALS PO ; Start 07/12/17 at 11:00; Stop 07/12 at 11:05; Status DC Methylprednisolone Sodium Succinate (SOLU-Medrol 125MG VIAL) 125 mg 1X ONCE IV Last administered on 07/12/17t 11:53; Start 07/12/17 at 11:45; Stop at 11:46; Status DC Pneumococcal Polyvalent Vaccine (Do NOT chart on this entry -- for MONITORING) 1 each PRN 1X PRN MC SEE COMMENTS; Start 07/12/17 at 18:30; Status UNV Pneumococcal Polyvalent Vaccine (Pneumovax 23) 0.5 ml ONCE ONCE VAX IM ; Start 07/13/17 at 09:00; Stop 07/13/17 at 09:01; Status DC Iohexol (Omnipaque 300 Mg/ml) 75 ml 1X ONCE IV ; Start 07/13/17 at 09:00; Stop 07/13/17 at 09:01; Status DC Sennosides (Senna) 8.6 mg PRN BID PRN PO CONSTIPATION; Start 07/13/17 at 09:15 ; Status UNV Active Scripts Active [place] 5-325 Tablet (Hydrocodone Bit/Acetaminophen) 1 Each Tablet 1 Tab PO PRN Q6HRS PRN Bactrim Ds Tablet (Sulfamethoxazole/Trimethoprim) 1 Each Tablet 1 Tab PO BID Reported Duloxetine Hcl 60 Mg Capsule. 60 Mg PO DAILY Dulera 100 Mcg/5 Mcg Inhaler (Mometasone/Formoterol) 13 Gm Hfa.aer.ad 100 Mcg IH BID Lisinopril-Hctz 20-12.5 Mg Tab (Lisinopril/Hydrochlorothiazide) 1 Each Tablet 20 Mg PO DAILY Levothyroxine Sodium 112 Mcg Tablet 112 PO DAILY06 Alprazolam 1 Mg Tablet 1 Mg PO DAILY Lyrica (Pregabalin) 200 Mg Capsule 200 Mg PO DAILY Trazodone Hcl 50 Mg Tablet 50 Mg PO HS Hydrocodone-Apap 10-325 (Hydrocodone Bit/Acetaminophen) 1 Each Tablet 10 PO PRN 7 Days Cymbalta (Duloxetine Hcl) 60 Mg Capsule.dr 60 Mg PO DAILY Enbrel (Etanercept) 50 Mg/1 Ml Disp.syrin 50 Mg SQ DAILY Vitals/I & O Vital Sign - Last 24 Hours 07/12/17 07/12/17 07/12/17 07/12/17 09:30 10:26 10:26 10:28 Pulse 90 Resp 18 B/P (MAP) 100/61 (74) Pulse Ox 98 98 96 96 O2 Delivery Room Air Room Air Room Air 07/12/17 07/12/17 07/12/17 07/12/17 10:30 11:30 13:13 16:16 Temp 98.3 Pulse 103 105 99 Resp 18 18 18 B/P (MAP) 113/64 (80) 110/57 (74) 129/75 (93) Pulse Ox 99 99 99 98 O2 Delivery Room Air Room Air Room Air Room Air 07/12/17 07/12/17 07/12/17 07/12/17 17:56 20:08 20:08 21:06 Temp 98.9 97.0 Pulse 108 107 Resp 16 18 B/P (MAP) 129/87 (101) 123/71 (88) Pulse Ox 98 97 97 95 O2 Delivery Room Air Room Air Room Air Room Air 07/13/17 07/13/17 07/13/17 07/13/17 00:01 00:23 04:00 04:45 Temp 97.4 97.5 Pulse 107 85 Resp 20 20 B/P (MAP) 98/67 (77) 113/67 (82) Pulse Ox 100 95 O2 Delivery Nasal Cannula Nasal Cannula Nasal Cannula Room Air O2 Flow Rate 2.0 2.0 2.0 07/13/17 07/13/17 07/13/17 05:36 06:47 07:47 Resp 20 Pulse Ox 96 96 96 O2 Delivery Room Air Nasal Cannula Room Air O2 Flow Rate 2.0 Intake and Output 07/12/17 07/12/17 07/13/17 15:00 23:00 07:00 Intake Total 1050 ml 800 ml 240 ml Output Total 650 ml 1900 ml Balance 400 ml -1100 ml 240 ml WIL MENDOZA APRN Jul 13, 2017 09:07
[2017-07-13] MEDS ORDERED: PREGABALIN 150 MG CAPSULE PO SCH (09:15)
[2017-07-13] MEDS ORDERED: SENNOSIDES 8.6 MG TABLET PO PRN (09:15)
[2017-07-13] MEDS: BUDESONIDE 0.5 MG/2 ML NEBU NEB SCH (09:29)
[2017-07-13] MEDS: RIVAROXABAN 15 MG TABLET. PO SCH (09:55)
[2017-07-13] MEDS: DULoxetine HCL 60 MG CAPSULE.DR PO SCH (09:56)
[2017-07-13 10:00] VITALS: BP 130/89
--- NOTE | 2017-07-13 10:26 | RAD ---
Indication: Asthma. Smoker. Hoarseness. Technique: Axial images and coronal and sagittal reformatted images are provided. 75 mL of intravenous Omnipaque 300 was administered. Patient had a CT angiogram chest earlier this morning. One or more of the following individualized dose reduction techniques were utilized for this examination: 1. Automated exposure control 2. Adjustment of the mA and/or kV according to patient size 3. Use of iterative reconstruction technique Findings: Neck: Chosen [id number] by technologist does not include the entirety of the soft tissues of the neck. Much of the orbits and sinuses are excluded. The included sinuses are clear. Mastoid air cells are clear. There is no definite airway narrowing. Left internal carotid artery takes a slightly retropharyngeal redundant course. There is plaquing in the carotids. There are subcentimeter short axis lymph nodes bilaterally. No pathologically enlarged node is apparent. Parotid and submandibular glands are unremarkable. Thyroid is unremarkable. There are degenerative changes in the spine. Chest: There is increased peripheral opacity in the right middle lobe as well as a bandlike opacity in the lingula which is increased. These are not wedge-shaped. There are probably areas of atelectasis. Pulmonary infarct is considered less likely. There is no worrisome pulmonary nodule. There is no consolidation. There is no pleural effusion. Central airways are patent. There is no hilar or mediastinal adenopathy. Current study was not protocoled as an angiogram although the pulmonary embolism described on the recent CT persists and is not appreciably changed in terms of burden. There is no evidence of heart strain. There are mild degenerative changes in the spine. There is no adrenal mass. Impression: 1. No evidence of mass or adenopathy within the neck. Presumed reactive lymph nodes are all subcentimeter short axis. 2. Opacities in the right middle lobe and lingula are probably atelectatic lung. They are minimally increased from prior. 3. Redemonstrated pulmonary embolism.
[2017-07-13] MEDS ORDERED: ACETAMINOPHEN 325 MG TABLET PO PRN (11:30)
[2017-07-13 12:35] VITALS: BP 108/68
--- NOTE | 2017-07-13 13:11 | PDOC3 ---
Discharge Summary Visit Information Date of Admission: Jul 11, 2017 Date of Discharge: Jul 13, 2017 Final Diagnosis Problems Medical Problems: (1) Chest pain Status: Acute (2) Elevated troponin Status: Acute : 1. Extensive bilateral pulmonary embolisms 2. Mild pulmonary hypertension with a pressure of 42. 3. Right lower extremity deep venous thrombosis, questionable etiology. 4. Elevated troponin. 5. Tobacco use disorder. 6. Hoarseness Problems: Brief Hospital Course Allergies Allergies Coded Allergies Type Severity Reaction Last Updated Verified codeine Allergy Mild Nausea and Vomiting 07/12/17 No Vital Signs Vital Signs Date Time Temp Pulse Resp B/P (MAP) Pulse Ox O2 Delivery O2 Flow Rate FiO2 07/13/17 12:35 90 18 108/68 (81) 92 Room Air 07/13/17 11:16 98.2 07/13/17 08:00 2.0 Lab Results Laboratory Tests Test 07/11/17 17:22 07/11/17 18:05 07/11/17 19:14 07/11/17 21:30 Urine Collection Type Unknown Urine Color Straw Urine Clarity Clear Urine pH 5.5 Urine Specific [place] <=1.005 Urine Protein Neg (NEG-TRACE) Urine Glucose (UA) Neg mg/dL (NEG) Urine Ketones (Stick) Neg mg/dL (NEG) Urine Blood Trace (NEG) Urine Nitrite Neg (NEG) Urine Bilirubin Neg (NEG) Urine Urobilinogen Dipstick 0.2 mg/dL (0.2 mg/dL) Urine Leukocyte Esterase Neg (NEG) Urine RBC Rare /HPF (0-2) Urine WBC 0 /HPF (0-4) Urine Squamous Epithelial Cells Occ /LPF Urine Bacteria 0 /HPF (0-FEW) White Blood Count 8.2 x10^3/uL (4.0-11.0) Red Blood Count 4.06 x10^6/uL (3.50-5.40) Hemoglobin 13.6 g/dL (12.0-15.5) Hematocrit 40.3 % (36.0-47.0) Mean Corpuscular Volume 99 fL (79-100) Mean Corpuscular Hemoglobin 33 pg (25-35) Mean Corpuscular Hemoglobin Concent 34 g/dL (31-37) Red Cell Distribution Width 15.5 % (11.5-14.5) Platelet Count 231 x10^3/uL (140-400) Neutrophils (%) (Auto) 61 % (31-73) Lymphocytes (%) (Auto) 29 % (24-48) Monocytes (%) (Auto) 9 % (0-9) Eosinophils (%) (Auto) 1 % (0-3) Basophils (%) (Auto) 1 % (0-3) Neutrophils # (Auto) 5.0 x10^3uL (1.8-7.7) Lymphocytes # (Auto) 2.4 x10^3/uL (1.0-4.8) Monocytes # (Auto) 0.7 x10^3/uL (0.0-1.1) Eosinophils # (Auto) 0.1 x10^3/uL (0.0-0.7) Basophils # (Auto) 0.1 x10^3/uL (0.0-0.2) D-Dimer (Leyda) 3.81 mg/L (0.00-0.50) Sodium Level 138 mmol/L (136-145) Potassium Level 3.5 mmol/L (3.5-5.1) Chloride Level 102 mmol/L (98-107) Carbon Dioxide Level 23 mmol/L (21-32) Anion Gap 13 (6-14) Blood Urea Nitrogen 11 mg/dL (7-20) Creatinine 0.7 mg/dL (0.6-1.0) Estimated GFR (Cockcroft-Gault) 86.2 BUN/Creatinine Ratio 16 (6-20) Glucose Level 93 mg/dL (70-99) Lactic Acid Level 2.2 mmol/L (0.4-2.0) Calcium Level 8.7 mg/dL (8.5-10.1) Total Bilirubin 0.4 mg/dL (0.2-1.0) Aspartate Amino Transf (AST/SGOT) 22 U/L (15-37) Alanine Aminotransferase (ALT/SGPT) 25 U/L (14-59) Alkaline Phosphatase 80 U/L (46-116) Creatine Kinase 162 U/L (26-192) Troponin I Quantitative 0.105 ng/mL (0-0.055) BI-Lum-G-Type Natriuretic Peptide 75 pg/mL (0-124) Total Protein 6.9 g/dL (6.4-8.2) Albumin 3.5 g/dL (3.4-5.0) Albumin/Globulin Ratio 1.0 (1.0-1.7) Urine Opiates Screen Neg (NEG) Urine Methadone Screen Neg (NEG) Urine Barbiturates Neg (NEG) Urine Phencyclidine Screen Neg (NEG) Urine Amphetamine/Methamphetamine Neg (NEG) Urine Benzodiazepines Screen Pos (NEG) Urine Cocaine Screen Neg (NEG) Urine Cannabinoids Screen Neg (NEG) Urine Ethyl Alcohol Pos (NEG) Ethyl Alcohol Level 91 mg/dL (0-10) Nasal Screen MRSA (PCR) Negative (Negative) Test 07/11/17 22:40 07/11/17 22:41 07/12/17 05:58 07/13/17 06:41 Lactic Acid Level 1.3 mmol/L (0.4-2.0) Troponin I Quantitative 0.260 ng/mL (0-0.055) 0.138 ng/mL (0-0.055) White Blood Count 7.5 x10^3/uL (4.0-11.0) 7.6 x10^3/uL (4.0-11.0) Red Blood Count 3.86 x10^6/uL (3.50-5.40) 3.81 x10^6/uL (3.50-5.40) Hemoglobin 13.1 g/dL (12.0-15.5) 13.1 g/dL (12.0-15.5) Hematocrit 38.6 % (36.0-47.0) 38.2 % (36.0-47.0) Mean Corpuscular Volume 100 fL (79-100) 100 fL (79-100) Mean Corpuscular Hemoglobin 34 pg (25-35) 35 pg (25-35) Mean Corpuscular Hemoglobin Concent 34 g/dL (31-37) 34 g/dL (31-37) Red Cell Distribution Width 15.8 % (11.5-14.5) 15.8 % (11.5-14.5) Platelet Count 197 x10^3/uL (140-400) 239 x10^3/uL (140-400) Neutrophils (%) (Auto) 62 % (31-73) 76 % (31-73) Lymphocytes (%) (Auto) 29 % (24-48) 17 % (24-48) Monocytes (%) (Auto) 7 % (0-9) 6 % (0-9) Eosinophils (%) (Auto) 1 % (0-3) 0 % (0-3) Basophils (%) (Auto) 1 % (0-3) 1 % (0-3) Neutrophils # (Auto) 4.7 x10^3uL (1.8-7.7) 5.8 x10^3uL (1.8-7.7) Lymphocytes # (Auto) 2.2 x10^3/uL (1.0-4.8) 1.3 x10^3/uL (1.0-4.8) Monocytes # (Auto) 0.5 x10^3/uL (0.0-1.1) 0.5 x10^3/uL (0.0-1.1) Eosinophils # (Auto) 0.1 x10^3/uL (0.0-0.7) 0.0 x10^3/uL (0.0-0.7) Basophils # (Auto) 0.0 x10^3/uL (0.0-0.2) 0.0 x10^3/uL (0.0-0.2) Sodium Level 141 mmol/L (136-145) 142 mmol/L (136-145) Potassium Level 4.0 mmol/L (3.5-5.1) 4.1 mmol/L (3.5-5.1) Chloride Level 104 mmol/L (98-107) 106 mmol/L (98-107) Carbon Dioxide Level 27 mmol/L (21-32) 24 mmol/L (21-32) Anion Gap 10 (6-14) 12 (6-14) Blood Urea Nitrogen 9 mg/dL (7-20) 14 mg/dL (7-20) Creatinine 0.7 mg/dL (0.6-1.0) 0.7 mg/dL (0.6-1.0) Estimated GFR (Cockcroft-Gault) 86.2 86.2 Glucose Level 107 mg/dL (70-99) 150 mg/dL (70-99) Calcium Level 8.6 mg/dL (8.5-10.1) 9.1 mg/dL (8.5-10.1) BUN/Creatinine Ratio 20 (6-20) Magnesium Level 2.3 mg/dL (1.8-2.4) Total Bilirubin 0.3 mg/dL (0.2-1.0) Aspartate Amino Transf (AST/SGOT) 11 U/L (15-37) Alanine Aminotransferase (ALT/SGPT) 23 U/L (14-59) Alkaline Phosphatase 82 U/L (46-116) Total Protein 7.0 g/dL (6.4-8.2) Albumin 3.4 g/dL (3.4-5.0) Albumin/Globulin Ratio 0.9 (1.0-1.7) Brief Hospital Course Ms. Moss is a 57 old [sex] who presented with [ ] REASON FOR ADMISSION: This is a 57-year-old female who states for the last 60 days or so, she has had some chronic hoarseness which she attributed to allergies, some congestion, a little bit of shortness of breath, a little bit of chest pain, some clear sputum. She has been treated in the office for these symptoms. She did get the flu shot this year. 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 She waited a little bit and tried to resume work, was unable to do so, she felt so short of breath. She has been using an albuterol inhaler quite a bit over the last 2 months. She has also gotten some steroid shot. She presented to the ER and was found to have an elevated D-Dimer and Ct of the chest showed bilateral pulmonary emboli. She had a venous doppler of the lower extremities which showed an extensive dvt of the rle. She was started on Lovonox and then switched to xaralto. She never required oxygen. She had verly little pain in the lower right leg in spite of the dvt.. She is sob with exertion. An echocardiogram was done showing mild pulmonary hypertention. she had a CT of the neck which did not provide much useful information. In consultation with Dr Ledezma, the pulmonolgist from [facility], he recommended that she have a removable IVC filter placed with removal in 6 months based on her follow-up CT results and blood work. Discharge Information Condition at Discharge: Stable Disposition/Orders: D/C to Another Facility Dischare Medications Current Medications Aspirin (Children'S Aspirin) 324 mg 1X ONCE PO Last administered on 18:53; Start 07/11/17 at 19:00; Stop 07/11/17 at 19:01; Status DC Methylprednisolone Sodium Succinate (SOLU-Medrol 125MG VIAL) 125 mg 1X ONCE IV ; Start 07/11/17 at 19:15; Stop 07/11/17 at 19:16; Status DC Albuterol/ Ipratropium (Duoneb) 3 ml 1X ONCE NEB ; Start 07/11/17 at 19:15; Stop 07/11/17 at 19:16; Status DC Ondansetron HCl (Zofran) 4 mg PRN Q4HRS PRN IV NAUSEA/VOMITING; Start at 19:45; Stop 07/12/17 at 19:44; Status DC Acetaminophen (Tylenol) 650 mg PRN Q4HRS PRN PO FEVER; Start 07/11/17 at 19:45 ; Stop 07/12/17 at 19:44; Status DC Nitroglycerin (Nitrostat) 0.4 mg PRN Q5MIN PRN SL CHEST PAIN; Start 07/11/17 at 19:45; Stop 07/12/17 at 19:44; Status DC Albuterol/ Ipratropium (Duoneb) 3 ml RTQID NEB Last administered on 07/13/17 09:29; Start 07/11/17 at 20:00 Enoxaparin Sodium (Lovenox 60mg Syringe) 60 mg Q12HR SQ Last administered on 08:07; Start 07/11/17 at 22:00; Stop 07/12/17 at 08:53; Status DC Info (Anti-Coagulation Monitoring By Pharmacy) 1 each PRN DAILY PRN MC SEE COMMENTS; Start 07/11/17 at 22:00 Acetaminophen/ Hydrocodone Bitart (Lortab 10/325) 1 tab PRN Q6HRS PRN PO SEVERE PAIN Last administered on 07/13/17 06:47; Start 07/11/17 at 22:30 Levothyroxine Sodium (Synthroid) 112 mcg DAILY06 PO Last administered on 05:31; Start 07/12/17 at 06:00 Trazodone HCl (Desyrel) 50 mg HS PO Last administered on 07/12/17 20:52; Start 07/11/17 at 23:30 Alprazolam (Xanax) 1 mg DAILY PO ; Start 07/12/17 at 09:00; Stop 07/12/17 at 09:00; Status DC Non-Formulary Medication 50 mg DAILY SQ ; Start 07/12/17 at 09:00; Stop at 09:00; Status DC Lisinopril (Prinivil) 20 mg DAILY PO ; Start 07/12/17 at 09:00; Stop 07/12/17 at 10:00; Status DC Non-Formulary Medication 100 mcg BID IH ; Start 07/12/17 at 09:00; Status UNV Pregabalin (Lyrica) 200 mg DAILY PO Last administered on 07/12/17 08:08; Start 07/12/17 at 09:00; Stop 07/12/17 at 09:00; Status DC Duloxetine HCl (Cymbalta) 60 mg DAILY PO Last administered on 07/13/17 09:56 ; Start 07/12/17 at 09:00 Duloxetine HCl (Cymbalta) 60 mg DAILY PO ; Start 07/12/17 at 09:00; Stop 07/12 at 09:00; Status DC Alprazolam (Xanax) 1 mg DAILY PO Last administered on 07/11/17 23:18; Start 07/11/17 at 23:15; Stop 07/12/17 at 08:18; Status DC Non-Formulary Medication 1 mg DAILY PO ; Start 07/11/17 at 23:15; Status UNV Hydrochlorothiazide (Microzide) 12.5 mg DAILY PO ; Start 07/12/17 at 09:00; Stop 07/12/17 at 10:00; Status DC Budesonide (Pulmicort) 0.5 mg RTBID NEB Last administered on 07/13/17 09:29; Start 07/12/17 at 08:00 Iohexol (Omnipaque 300 Mg/ml) 75 ml 1X ONCE IV Last administered on 04:03; Start 07/12/17 at 03:30; Stop 07/12/17 at 03:32; Status DC Info (Do NOT chart on this entry -- for MONITORING) 1 each PRN DAILY PRN MC SEE COMMENTS; Start 07/12/17 at 03:15; Stop 07/14/17 at 03:14 Alprazolam (Xanax) 1 mg HS PO Last administered on 07/12/17 20:52; Start 06/18 at 21:00 Pregabalin (Lyrica) 400 mg DAILY PO ; Start 07/13/17 at 09:00; Stop 07/13/17 at 09:07; Status DC Pregabalin (Lyrica) 200 mg 1X ONCE PO Last administered on 07/12/17 08:29; Start 07/12/17 at 08:30; Stop 07/12/17 at 08:31; Status DC Rivaroxaban (Xarelto) 15 mg BIDWMEALS PO Last administered on 07/13/17 09:55 ; Start 07/12/17 at 11:00 Lisinopril (Prinivil) 10 mg DAILY PO Last administered on 07/13/17 10:04; Start 07/13/17 at 09:00 Rivaroxaban (Xarelto) 15 mg BIDWMEALS PO ; Start 07/12/17 at 11:00; Stop 07/12 at 11:05; Status DC Methylprednisolone Sodium Succinate (SOLU-Medrol 125MG VIAL) 125 mg 1X ONCE IV Last administered on 07/12/17 11:53; Start 07/12/17 at 11:45; Stop at 11:46; Status DC Pneumococcal Polyvalent Vaccine (Do NOT chart on this entry -- for MONITORING) 1 each PRN 1X PRN MC SEE COMMENTS; Start 07/12/17 at 18:30; Status UNV Pneumococcal Polyvalent Vaccine (Pneumovax 23) 0.5 ml ONCE ONCE VAX IM Last administered on 07/13/17 10:12; Start 07/13/17 at 09:00; Stop 07/13/17 at 09 :01; Status DC Iohexol (Omnipaque 300 Mg/ml) 75 ml 1X ONCE IV Last administered on 09:26; Start 07/13/17 at 09:00; Stop 07/13/17 at 09:01; Status DC Sennosides (Senna) 8.6 mg PRN BID PRN PO CONSTIPATION Last administered on 09:59; Start 07/13/17 at 09:15 Pregabalin (Lyrica) 300 mg DAILY PO Last administered on 07/13/17 09:58; Start 07/13/17 at 09:15 Pregabalin (Lyrica) 100 mg DAILY PO Last administered on 07/13/17 10:09; Start 07/14/17 at 09:00 Acetaminophen (Tylenol) 650 mg PRN Q6HRS PRN PO PAIN / TEMP Last administered on 07/13/17 11:35; Start 07/13/17 at 11:30 Active Scripts Active [place] 5-325 Tablet (Hydrocodone Bit/Acetaminophen) 1 Each Tablet 1 Tab PO PRN Q6HRS PRN Bactrim Ds Tablet (Sulfamethoxazole/Trimethoprim) 1 Each Tablet 1 Tab PO BID Reported Duloxetine Hcl 60 Mg Capsule. 60 Mg PO DAILY Dulera 100 Mcg/5 Mcg Inhaler (Mometasone/Formoterol) 13 Gm Hfa.aer.ad 100 Mcg IH BID Lisinopril-Hctz 20-12.5 Mg Tab (Lisinopril/Hydrochlorothiazide) 1 Each Tablet 20 Mg PO DAILY Levothyroxine Sodium 112 Mcg Tablet 112 PO DAILY06 Alprazolam 1 Mg Tablet 1 Mg PO DAILY Lyrica (Pregabalin) 200 Mg Capsule 200 Mg PO DAILY Trazodone Hcl 50 Mg Tablet 50 Mg PO HS Hydrocodone-Apap 10-325 (Hydrocodone Bit/Acetaminophen) 1 Each Tablet 10 PO PRN 7 Days Cymbalta (Duloxetine Hcl) 60 Mg Capsule. 60 Mg PO DAILY Enbrel (Etanercept) 50 Mg/1 Ml Disp.syrin 50 Mg SQ DAILY Patient Instructions Patient Instuctions Will need transfer to another facility per her insurance for a removable IVC filter. She is to take Xaralto for 6 months. At the 6 month gabriella she is to have a repeat D-Dimer-if it is still elevated she will continue the Xaralto for another 6 months. She should have her hoarseness investigated with a scope by ENT. She will need coagulation studies in the future as the cause of er PE is not known. She needs to have a mammogram and a colonoscopy if they are not up to date. she should wear her sherlyn hose most of the time. She should have a CT of the chest at the 6 month gabriella and depending on the results she may be able to have the filter rermoved. She need to take it easy the next few weeks and increase her activity gradually She has mild pulmonary hypertention that will need to be followed . ANA JOHNSON DO Jul 13, 2017 13:11
[2017-07-13] MEDS ORDERED: RIVA15TA PO (13:27)
[2017-07-13] MEDS ORDERED: ACET325T9 PO (13:27)
[2017-07-13] MEDS ORDERED: IPRA3AMP NEB (13:27)
[2017-07-13] MEDS ORDERED: BUDE0.5A11 NEB (13:27)
[2017-07-13 14:00] VITALS: BP 110/72
[2017-07-13 15:20] VITALS: BP 152/84
[2017-07-14] MEDS ORDERED: PREGABALIN 50 MG CAPSULE PO SCH (09:00)
== END 2017-07-13 16:00 | disposition short-term general hospital (02) | DRG 299 ==
LOC: ER 17:43 → ICU 19:35
PROVIDERS: ADMIT Internal Medicine; ATTEND Internal Medicine
DX: I82.401 Acute embolism and thrombosis of unspecified deep veins of right lower extremity (principal); I26.99 Other pulmonary embolism without acute cor pulmonale; E03.9 Hypothyroidism, unspecified; F17.210 Nicotine dependence, cigarettes, uncomplicated; I10 Essential (primary) hypertension; I27.20 Pulmonary hypertension, unspecified; J45.909 Unspecified asthma, uncomplicated; L40.50 Arthropathic psoriasis, unspecified; M79.7 Fibromyalgia; F10.129 Alcohol abuse with intoxication, unspecified; Y90.0 Blood alcohol level of less than 20 mg/100 ml; Z79.01 Long term (current) use of anticoagulants; Z79.82 Long term (current) use of aspirin; Z79.899 Other long term (current) drug therapy; Z82.3 Family history of stroke; Z82.49 Family history of ischemic heart disease and other diseases of the circulatory system; Z82.5 Family history of asthma and other chronic lower respiratory diseases; Z88.8 Allergy status to other drugs, medicaments and biological substances
CPT/HCPCS: 36415; 71010; 71260; 71275; 72132; 80048; 80053; 80307; 81001; 82550; 83605; 83735; 83880; 84484; 85025; 85379; 87641; 90732; 93005; 93306; 93971; 94640; G0480; J1650; J2930; J7620; J7626; Q9967; G0479

== ENCOUNTER 2017-08-10 20:44 | Emergency (ER) | payer BC ==
[~2017-08-10] VITALS: Ht 157.5 cm; Wt 72.6 kg
[~2017-08-10 20:44] MED LIST changes: +ACET325T9 PO; +ALPR1TAB6 PO; +BUDE0.5A11 NEB; +DULO60CA44 PO; +HYDR-2766 PO; +IPRA3AMP NEB; +LEVO112T4 PO; +LISI1TAB5 PO; +MOME13HF2 IH; +PREG200C PO; +RIVA15TA PO; +TRAZ50TA15 PO
[2017-08-10 21:00] VITALS: BP 158/98
[2017-08-10] MEDS ORDERED: HYDROcodone/APAP 5/325MG 1 TAB TABLET PO ONE (22:15)
[2017-08-10] MEDS ORDERED: ALPRAZolam 0.25 MG TABLET PO ONE (22:15)
--- NOTE | 2017-08-10 22:18 | PHYS DOC ---
Past History Past Medical History: Asthma, Fibromyalgia, Hypertension, Other Additional Past Medical Histor: DVT and PE in 07/11/2017 Past Surgical History: No Surgical History Smoking: Less than 1pk/day Alcohol Use: Heavy Drug Use: None Adult General Chief Complaint Chief Complaint: LOWER EXT PAIN [facility] HPI 57-year-old female patient with history of right lower extremity DVT and PE diagnosed on July 11, 2017 and currently on Xarelto and also history of anxiety complaining of pain in right lower extremity that getting worse than her usual today without erythema or edema and fever and chills. Patient states she has chronic shortness of breath and generalized weakness that getting force after her diagnosis of PE. Patient states she takes Xanax at bedtime and didn't take her Xanax today. She denies chest pain, cough, fever and chills, change of color of her leg. Review of Systems Review of Systems Constitutional: Denies fever or chills [] Eyes: Denies change in visual acuity, redness, or eye pain [] HENT: Denies nasal congestion or sore throat [] Respiratory: Chronic shortness of breath Cardiovascular: No additional information not addressed in HPI [] GI: Denies abdominal pain, nausea, vomiting, bloody stools or diarrhea [] : Denies dysuria or hematuria [] Musculoskeletal: Right lower extremity pain Integument: Denies rash or skin lesions [] Neurologic: Denies headache, focal weakness or sensory changes [] Endocrine: Denies polyuria or polydipsia [] All other systems were reviewed and found to be within normal limits, except as documented in this note. Current Medications Current Medications Current Medications Medications (Trade) Dose Ordered Sig/[facility] Start Time Stop Time Status Last Admin Dose Admin Acetaminophen/ Hydrocodone Bitart (Lortab 5/325) 1 tab 1X ONCE 08/10/17 22:15 08/10/17 22:16 08/10/17 21:59 1 TAB Alprazolam (Xanax) 0.5 mg 1X ONCE 08/10/17 22:15 08/10/17 22:16 08/10/17 21:59 0.5 MG Allergies Allergies Allergies Coded Allergies Type Severity Reaction Last Updated Verified codeine Allergy Mild Nausea and Vomiting 07/12/17 No Physical Exam Physical Exam Constitutional: Well nourished, mild distress, non-toxic appearance, very anxious. [] HENT: Normocephalic, atraumatic, bilateral external ears normal, oropharynx moist, no oral exudates, nose normal. [] Eyes: PERRLA, EOMI, conjunctiva normal, no discharge. [] Neck: Normal range of motion, no tenderness, supple, no stridor. [] Cardiovascular:Tachycardia, no murmur [] Lungs & Thorax: Bilateral breath sounds clear to auscultation [] Abdomen: Bowel sounds normal, soft, no tenderness, no masses, no pulsatile masses. [] Skin: Warm, dry, no erythema, no rash. [] Back: No tenderness, no CVA tenderness. [] Extremities: No tenderness, no cyanosis, no clubbing, ROM intact, no edema, good peripheral pulses, no sign of infection [] Neurologic: Alert and oriented X 3, normal motor function, normal sensory function, no focal deficits noted. [] Psychologic: Very anxious, judgement normal EKG EKG [] Radiology/Procedures Radiology/Procedures [] Course & Med Decision Making Course & Med Decision Making Evaluation of patient in ER showed 57-year-old female patient with history of recent diagnosis of PE and DVT in right lower extremity on Xarelto complaining of increasing pain in right leg. Patient had unremarkable physical exam except for anxiety and tachycardia. Right lower extremity did not show sign of infection or edema. Patient was treated with Hustle and Xanax and felt better. Plan to discharge patient home to diagnose of anxiety and lower extremity pain. Dragon Disclaimer Dragon Disclaimer This electronic medical record was generated, in whole or in part, using a voice recognition dictation system. Departure Departure: Impression: Primary Impression: Right leg pain Additional Impressions: Anxiety History of DVT (deep vein thrombosis) History of pulmonary embolism Disposition: HOME, SELF-CARE (At 2217) Condition: IMPROVED Referrals: OZIEL GUTIERREZ MD (PCP) Patient Instructions: Deep Vein Thrombosis, Leg Cramps Additional Instructions: Continue current medications Follow-up with your physician in 2 or 3 days Return to ER if not getting better Scripts Hydrocodone Bit/Acetaminophen (NORCO 5-325 TABLET) 1 Each Tablet 1-2 TAB PO Q4-6HRS, #12 TAB Prov: SAMINA SAMPSON MD 08/10/17 Problem Qualifiers SAMINA SAMPSON MD Aug 10, 2017 22:17
[2017-08-10] MEDS ORDERED: HYDR-971 PO (22:43)
== END 2017-08-10 22:45 | disposition home or self-care (01) ==
LOC: ER 20:44
DX: M79.604 Pain in right leg (principal); F41.9 Anxiety disorder, unspecified; I10 Essential (primary) hypertension; M79.7 Fibromyalgia; J45.909 Unspecified asthma, uncomplicated; F17.200 Nicotine dependence, unspecified, uncomplicated; F10.20 Alcohol dependence, uncomplicated; Z86.718 Personal history of other venous thrombosis and embolism; Z86.711 Personal history of pulmonary embolism; Z88.5 Allergy status to narcotic agent
CPT/HCPCS: 99283

== ENCOUNTER 2017-08-18 16:57 | Emergency (ER) | payer BC ==
[~2017-08-18] VITALS: Ht 157.5 cm; Wt 76.0 kg
[2017-08-18 18:04] LABS: BASO # 0.1 x10^3/uL (0.0-0.2); BASO % 1 % (0-3); EOS # 0.1 x10^3/uL (0.0-0.7); EOS % 1 % (0-3); HEMATOCRIT 41.5 % (36.0-47.0); HEMOGLOBIN 14.3 g/dL (12.0-15.5); LYMPH # 2.3 x10^3/uL (1.0-4.8); LYMPH % 26 % (24-48); MEAN CORPUSCULAR HEMOGLOBIN 34 pg (25-35); MEAN CORPUSCULAR HGB CONC 34 g/dL (31-37); MEAN CORPUSCULAR VOLUME 99 fL (79-100); MONO # 0.6 x10^3/uL (0.0-1.1); MONO % 7 % (0-9); NEUT # 5.7 x10^3uL (1.8-7.7); NEUT % 66 % (31-73); PLATELET COUNT 264 x10^3/uL (140-400); RED BLOOD COUNT 4.22 x10^6/uL (3.50-5.40); RED CELL DISTRIBUTION WIDTH 14.1 % (11.5-14.5); WHITE BLOOD COUNT 8.7 x10^3/uL (4.0-11.0)
[2017-08-18] MEDS ORDERED: LORazepam 1 MG TABLET PO ONE (18:15)
[2017-08-18 18:16] LABS: ALBUMIN 3.5 g/dL (3.4-5.0); CALCIUM 8.7 mg/dL (8.5-10.1); CREATININE 0.7 mg/dL (0.6-1.0); DIRECT BILIRUBIN 0.1 mg/dL (0.0-0.2); GFR 86.2; POTASSIUM 3.6 mmol/L (3.5-5.1); TOTAL BILIRUBIN 0.2 mg/dL (0.2-1.0); TOTAL PROTEIN 6.8 g/dL (6.4-8.2)
--- NOTE | 2017-08-18 18:17 | PHYS DOC ---
Past History Past Medical History: Asthma, DVT, Fibromyalgia, Hypertension, Other Additional Past Medical Histor: DVT and PE in 07/11/2017 Past Surgical History: Tonsillectomy, Other Smoking: Less than 1pk/day Alcohol Use: Heavy Additional Alcohol Information: 2 martini/night, pt did drink prior to arriving this evening Drug Use: None Social History Narrative: history of multi drug use, none recently Adult General Chief Complaint Chief Complaint: COUGH HPI HPI 57-year-old female presenting to the emergency department today with increasing exertional dyspnea and hemoptysis over the past 24 hours. She reports a remote history of fever 3 days ago but did not take an objective temperature. She is currently on xerolto therapy for history of DVT and pulmonary embolism and is taking her medication as prescribed. She denies any unilateral leg swelling. She describes her hemoptysis as streaks of blood in her cough. She has been coughing a dry cough. She reports a history of high blood pressure arthritis and asthma. Review of systems is negative for chest pain abdominal pain nausea vomiting diaphoresis. All other review of systems is negative unless otherwise noted in history of present illness. ED course: 57-year-old female presenting the emergency department with hemoptysis increasing exertional dyspnea having history of pulmonary embolism and DVT currently on treatment with xerolto. On arrival the patient is mildly tachycardic and hypertensive. On examination she has clear lungs bilaterally with a tachycardic heart rate with irregular rhythm and no murmur on auscultation. Abdomen is soft and nontender. No evidence of unilateral leg swelling on examination. Chest x-ray was obtained and reviewed by myself which shows no obvious infiltrate or pneumothorax. Similar to previous on July. I initially saw the patient towards the end of my shift evaluated the patient, performed a history and physical examination and placed orders for the patient. I subsequently transitioned care to Dr. Wright at 6 PM with plans to follow-up on blood work and ultrasound of the legs and angiogram. Review of Systems Review of Systems SEE ABOVE. Current Medications Current Medications Current Medications Medications (Trade) Dose Ordered Sig/Yanique Start Time Stop Time Status Last Admin Dose Admin Lorazepam (Ativan) 1 mg 1X ONCE 08/18/17 18:15 08/18/17 18:16 08/18/17 18:08 1 MG Allergies Allergies Allergies Coded Allergies Type Severity Reaction Last Updated Verified codeine Allergy Mild Nausea and Vomiting 07/12/17 No Physical Exam Physical Exam SEE ABOVE Constitutional: Well developed, well nourished, no acute distress, non-toxic appearance. [] HENT: Normocephalic, atraumatic, bilateral external ears normal, oropharynx moist, no oral exudates, nose normal. [] Eyes: PERRLA, EOMI, conjunctiva normal, no discharge. [] Neck: Normal range of motion, no tenderness, supple, no stridor. [] Cardiovascular:Heart rate regular rhythm, no murmur [] Lungs & Thorax: Bilateral breath sounds clear to auscultation [] Abdomen: Bowel sounds normal, soft, no tenderness, no masses, no pulsatile masses. [] Skin: Warm, dry, no erythema, no rash. [] Back: No tenderness, no CVA tenderness. [] Extremities: No tenderness, no cyanosis, no clubbing, ROM intact, no edema. [] Neurologic: Alert and oriented X 3, normal motor function, normal sensory function, no focal deficits noted. [] Psychologic: Affect normal, judgement normal, mood normal. [] Current Patient Data Vital Signs Vital Signs Date Time Temp Pulse Resp B/P (MAP) Pulse Ox O2 Delivery O2 Flow Rate FiO2 08/18/17 16:57 98.6 115 12 98 Room Air Lab Results Laboratory Tests Test 08/18/17 17:43 White Blood Count 8.7 x10^3/uL (4.0-11.0) Red Blood Count 4.22 x10^6/uL (3.50-5.40) Hemoglobin 14.3 g/dL (12.0-15.5) Hematocrit 41.5 % (36.0-47.0) Mean Corpuscular Volume 99 fL (79-100) Mean Corpuscular Hemoglobin 34 pg (25-35) Mean Corpuscular Hemoglobin Concent 34 g/dL (31-37) Red Cell Distribution Width 14.1 % (11.5-14.5) Platelet Count 264 x10^3/uL (140-400) Neutrophils (%) (Auto) 66 % (31-73) Lymphocytes (%) (Auto) 26 % (24-48) Monocytes (%) (Auto) 7 % (0-9) Eosinophils (%) (Auto) 1 % (0-3) Basophils (%) (Auto) 1 % (0-3) Neutrophils # (Auto) 5.7 x10^3uL (1.8-7.7) Lymphocytes # (Auto) 2.3 x10^3/uL (1.0-4.8) Monocytes # (Auto) 0.6 x10^3/uL (0.0-1.1) Eosinophils # (Auto) 0.1 x10^3/uL (0.0-0.7) Basophils # (Auto) 0.1 x10^3/uL (0.0-0.2) EKG EKG Initially reviewed by Dr. Karimi, also interpreted by Dr. Wright: Heart rate 110, sinus tachycardia, normal intervals, normal axis, no acute ST/T-wave abnormalities present[] Radiology/Procedures Radiology/Procedures One view AP chest x-ray interpreted by Dr. Wright: No infiltrates, no effusions , [place] [address] IMAGING REPORT Signed PATIENT: LUPILLO STEWART ACCOUNT: [id number] : 1960 LOCATION: ER AGE: 57 SEX: F EXAM STATUS: REG ER ORD. PHYSICIAN: ARLEY WRIGHT MD REASON: shortness breath, tachycardia, rule out PE PROCEDURE: CT ANGIOGRAPHY CHEST CT pulmonary angiogram with intravenous contrast History: Cough, known pulmonary embolism. Comparison: Same examination July 12, 2017. Technique: CT angiogram of the chest with attention to the pulmonary arteries was performed after the administration of intravenous contrast, 75 mL Omnipaque-300. Axial 2-D reconstructions were obtained. Coronal 3-D MIPS were obtained of the chest. Exposure: One or more of the following individualized dose reduction techniques were utilized for this examination: 1. Automated exposure control 2. Adjustment of the mA and/or kV according to patient size 3. Use of iterative reconstruction technique Findings: Pulmonary arteries are adequately opacified. There is marked interval improvement in bilateral pulmonary embolism. There is likely mild residual nonocclusive pulmonary embolism involving both lower lobe pulmonary arterial systems. No new pulmonary embolism is identified. Trachea and mainstem bronchi appear patent. Visualized thyroid appears symmetric. Both lungs demonstrate areas of groundglass opacity, nonspecific.. No pneumothorax or pleural effusion is seen. No mediastinal lymphadenopathy is seen. Thoracic aorta has normal caliber. Heart and pericardium are unremarkable. Impression: 1. Marked interval reduction in burden of pulmonary embolism. There appears to be mild residual nonocclusive pulmonary embolism involving both lower lobe pulmonary arterial systems. No new pulmonary embolism is identified. 2. Both lungs demonstrate mild nonspecific groundglass opacity. Considerations include infectious or inflammatory process versus mild pulmonary edema. Correlate clinically. Electronically signed by: Manny Coto MD (08/18/2017 7:55 PM) [facility] DICTATED AND SIGNED BY: MANNY COTO MD DATE: 08/18/171947 CC: ARLEY WRIGHT MD; OZIEL GUTIERREZ MD ~ [place] [address] IMAGING REPORT Signed PATIENT: LUPILLO STEWART ACCOUNT: [id number] : 1960 LOCATION: ER AGE: 57 SEX: F EXAM STATUS: REG ER ORD. PHYSICIAN: ALBERTINA KARIMI MD REASON: eval for dvt, pt has hx of dvt PROCEDURE: VENOUS LOWER EXT BILATERAL Bilateral Lower Extremity Venous Doppler Ultrasound Indication: Bilateral lower extremity paresthesia, history of right lower extremity deep venous thrombosis, anticoagulated. Comparison: Right lower extremity venous Doppler July 12, 2017. Procedure: Color Doppler, spectral Doppler, and grayscale images with and without compression are obtained in the area of the common femoral vein, superficial femoral vein - femoral vein junction, main femoral vein (superficial femoral vein) and popliteal vein. Veins of the proximal calf are also imaged. Findings: Veins of left lower extremity are without evidence of deep venous thrombosis. Nonocclusive deep venous thrombosis can be seen involving the right femoral vein. Other veins of the right lower extremity are without evidence of deep venous thrombosis. Overall burden of right lower extremity deep venous thrombosis is improved from previous study. Small cystic lesion is seen involving the right calf measuring 0.7 cm maximum dimension. Left Martinez's cyst measuring 3.2 x 1.1 x 2.0 cm is seen. Impression: 1. Interval improvement in burden of right lower extremity deep venous thrombosis. Nonocclusive deep venous thrombosis is now seen involving only the right femoral vein. 2. No evidence of left lower extremity deep venous thrombosis. Electronically signed by: Manny Coto MD (08/18/2017 7:35 PM) [facility] DICTATED AND SIGNED BY: MANNY COTO MD DATE: 08/18/171930 CC: ARLEY WRIGHT MD; ALBERTINA KARIMI MD; OZIEL GUTIERREZ MD ~ [] Course & Med Decision Making Course & Med Decision Making Pertinent Labs and Imaging studies reviewed. (See chart for details) I took over care of patient at 1800. I follow-up with the patient's testing which showed no evidence of new pulmonary embolism or new deep venous thrombosis. The patient had an overall decrease in clot burden which would be expected with her current treatment. The patient is showing evidence of symptoms concerning for bronchitis. The patient will be started on oral doxycycline and Medrol Dosepak for treatment. Advised patient follow-up with primary doctor in 2 days for reevaluation and advised return emergency department for any worsening symptoms. Patient voiced understanding and in agreement with treatment plan. Dragon Disclaimer Dragon Disclaimer This electronic medical record was generated, in whole or in part, using a voice recognition dictation system. Departure Departure: Impression: Primary Impression: Acute bronchitis Additional Impression: History of pulmonary embolism Disposition: HOME, SELF-CARE Condition: IMPROVED Referrals: OZIEL GUTIERREZ MD (PCP) Patient Instructions: Acute Bronchitis Additional Instructions: Follow-up with your primary doctor in 2-3 days for reevaluation. Return to emergency department for any worsening symptoms. Scripts Methylprednisolone (MEDROL) 4 Mg Tab.ds.pk 1 PKG PO UD, #1 PKG Prov: ARLEY WRIGHT MD 08/18/17 Doxycycline Hyclate (DOXYCYCLINE HYCLATE) 100 Mg Capsule 1 CAP PO BID, #20 CAP Prov: ARLEY WRIGHT MD 08/18/17 Problem Qualifiers Primary Impression: Acute bronchitis Bronchitis organism: unspecified organism Qualified Codes: J20.9 - Acute bronchitis, unspecified ALBERTINA KARIMI MD Aug 18, 2017 18:17 ARLEY WRIGHT MD Aug 18, 2017 20:16
--- NOTE | 2017-08-18 18:26 | EKG ---
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
[2017-08-18 18:36] LABS: BACTERIA,URINE FEW /HPF (0-FEW); BILIRUBIN,URINE NEG (NEG); CLARITY,URINE CLEAR; COLOR,URINE STRAW; GLUCOSE,URINE NEG (NEG); NITRITE,URINE NEG (NEG); RBC,URINE 0 /HPF (0-2); SQUAMOUS EPITHELIAL CELL,UR MANY /LPF; UROBILINOGEN,URINE 0.2 mg/dL (0.2 mg/dL); WBC,URINE RARE /HPF (0-4)
[2017-08-18] MEDS ORDERED: CONTRAST GIVEN MC PRN (19:30)
[2017-08-18] MEDS ORDERED: IOHEXOL 300 MG/ML 75 ML VIAL. IV ONE (19:30)
--- NOTE | 2017-08-18 19:38 | RAD ---
Bilateral Lower Extremity Venous Doppler Ultrasound Indication: Bilateral lower extremity paresthesia, history of right lower extremity deep venous thrombosis, anticoagulated. Comparison: Right lower extremity venous Doppler July 12, 2017. Procedure: Color Doppler, spectral Doppler, and grayscale images with and without compression are obtained in the area of the common femoral vein, superficial femoral vein - femoral vein junction, main femoral vein (superficial femoral vein) and popliteal vein. Veins of the proximal calf are also imaged. Findings: Veins of left lower extremity are without evidence of deep venous thrombosis. Nonocclusive deep venous thrombosis can be seen involving the right femoral vein. Other veins of the right lower extremity are without evidence of deep venous thrombosis. Overall burden of right lower extremity deep venous thrombosis is improved from previous study. Small cystic lesion is seen involving the right calf measuring 0.7 cm maximum dimension. Left Martinez's cyst measuring 3.2 x 1.1 x 2.0 cm is seen. Impression: 1. Interval improvement in burden of right lower extremity deep venous thrombosis. Nonocclusive deep venous thrombosis is now seen involving only the right femoral vein. 2. No evidence of left lower extremity deep venous thrombosis. Electronically signed by: Manny Perales MD (08/18/2017 7:35 PM) [facility]
[2017-08-18] MEDS ORDERED: IV NORMAL SALINE 1,000ML 1,000 ML IV ONE (19:45)
[2017-08-18 19:50] VITALS: BP 139/91
--- NOTE | 2017-08-18 19:58 | RAD ---
CT pulmonary angiogram with intravenous contrast History: Cough, known pulmonary embolism. Comparison: Same examination July 12, 2017. Technique: CT angiogram of the chest with attention to the pulmonary arteries was performed after the administration of intravenous contrast, 75 mL Omnipaque-300. Axial 2-D reconstructions were obtained. Coronal 3-D MIPS were obtained of the chest. Exposure: One or more of the following individualized dose reduction techniques were utilized for this examination: 1. Automated exposure control 2. Adjustment of the mA and/or kV according to patient size 3. Use of iterative reconstruction technique Findings: Pulmonary arteries are adequately opacified. There is marked interval improvement in bilateral pulmonary embolism. There is likely mild residual nonocclusive pulmonary embolism involving both lower lobe pulmonary arterial systems. No new pulmonary embolism is identified. Trachea and mainstem bronchi appear patent. Visualized thyroid appears symmetric. Both lungs demonstrate areas of groundglass opacity, nonspecific.. No pneumothorax or pleural effusion is seen. No mediastinal lymphadenopathy is seen. Thoracic aorta has normal caliber. Heart and pericardium are unremarkable. Impression: 1. Marked interval reduction in burden of pulmonary embolism. There appears to be mild residual nonocclusive pulmonary embolism involving both lower lobe pulmonary arterial systems. No new pulmonary embolism is identified. 2. Both lungs demonstrate mild nonspecific groundglass opacity. Considerations include infectious or inflammatory process versus mild pulmonary edema. Correlate clinically. Electronically signed by: Manny Perales MD (08/18/2017 7:55 PM) [facility]
[2017-08-18 20:01] LABS: INFLUENZA A PATIENT NEGATIVE (NEGATIVE); INFLUENZA B PATIENT NEGATIVE (NEGATIVE)
[2017-08-18] MEDS ORDERED: METH4TAB2 PO (20:16)
[2017-08-18] MEDS ORDERED: DOXY100C2 PO (20:16)
--- NOTE | 2017-08-19 07:20 | RAD ---
Single view chest 08/18/2017 Clinical indication: Hemoptysis. Comparison: Chest 07/11/2017. Findings: Multiple leads overlie the patient. No pleural effusion, pneumothorax or focal consolidation. Cardiac and mediastinal silhouettes are unremarkable. Impression: No acute cardiopulmonary abnormality.
== END 2017-08-18 20:22 | disposition home or self-care (01) ==
LOC: ER 16:57
DX: J20.9 Acute bronchitis, unspecified (principal); M79.7 Fibromyalgia; I10 Essential (primary) hypertension; J45.909 Unspecified asthma, uncomplicated; F17.200 Nicotine dependence, unspecified, uncomplicated; F10.20 Alcohol dependence, uncomplicated; Z86.718 Personal history of other venous thrombosis and embolism; Z86.711 Personal history of pulmonary embolism; Z88.5 Allergy status to narcotic agent
CPT/HCPCS: 36415; 71045; 71275; 80048; 80076; 81001; 83690; 84484; 85025; 85379; 85610; 85730; 87804; 93005; 93970; 99285; Q9967

== ENCOUNTER 2017-09-10 17:08 | Emergency (ER) | payer BC ==
[~2017-09-10] VITALS: Ht 157.5 cm; Wt 72.6 kg
[~2017-09-10 17:08] MED LIST changes: +DOXY100C2 PO; +METH4TAB2 PO
--- NOTE | 2017-09-10 17:30 | ED.ADGEN ---
Past History Past Medical History: Anxiety, Asthma, Bipolar, DVT, Fibromyalgia, Hypertension , Other Additional Past Medical Histor: DVT and PE in 07/11/2017 Past Surgical History: Tonsillectomy, Other Smoking: Less than 1pk/day Alcohol Use: Heavy Drug Use: None Adult General Chief Complaint Chief Complaint " Not feeling right... I feel like I got blood clots ... moving around all over my body... it started after I did my breathing tx's this morning...".." this been going on all day... " My fibromyalgia is kicking up too..." HPI HPI Patient is a 57 year old female who presents with above hx and complaints. Pt. very anxious.. Has had increased coughing, wheezing, mild pharyngitis, arthralgia, myalgia, malaise, and severe episodes of panic. Patient does have a history of past DVT on of this past year and pulmonary embolisms. Patient has been compliant with her anticoagulants and has had filter placed in her Vena cava. No history of travel. No specific history of ill contacts. No history immunosuppression. Patient states she was recently treated for urinary tract infection. Patient does continue to smoke. Patient normally follows with Dr. Rueda. Review of Systems Review of Systems Constitutional: Denies fever or chills [] Eyes: Denies change in visual acuity, redness, or eye pain [] HENT: Denies nasal congestion or sore throat [] Respiratory: History of cough and wheezing Cardiovascular: No additional information not addressed in HPI [] GI: Denies abdominal pain, nausea, vomiting, bloody stools or diarrhea [] : Denies dysuria or hematuria [] Musculoskeletal: Denies back pain or joint pain [] Integument: Denies rash or skin lesions [] Neurologic: Denies headache, focal weakness or sensory changes [] Endocrine: Denies polyuria or polydipsia [] All other systems were reviewed and found to be within normal limits, except as documented in this note. Family History Family History Noncontributory Current Medications Current Medications Current Medications Medications (Trade) Dose Ordered Sig/Yanique Start Time Stop Time Status Last Admin Dose Admin Aspirin (Lionel Aspirin) 325 mg 1X ONCE 09/10/17 18:00 09/10/17 18:01 DC 09/10/17 18:05 325 MG Sodium Chloride 1,000 ml @ 1,000 mls/hr Q1H 09/10/17 18:00 09/10/17 18:59 DC 09/10/17 18:05 1,000 MLS/HR Allergies Allergies Allergies Coded Allergies Type Severity Reaction Last Updated Verified codeine Allergy Mild Nausea and Vomiting 08/18/17 No Physical Exam Physical Exam Constitutional: Patient is very anxious. In no acute distress, non-toxic appearance. [] HENT: Normocephalic, atraumatic, bilateral external ears normal, oropharynx moist, mild injection, no oral exudates, nose rhinorrhea Eyes: PERRLA, EOMI, conjunctiva normal, no discharge. [] Neck: Normal range of motion, no tenderness, supple, no stridor. [] Cardiovascular: Tachycardia Heart rate regular rhythm, no murmur [] Lungs & Thorax: Bilateral breath sounds equal at apexes with scattered wheezes on auscultation [] Abdomen: Bowel sounds normal, soft, no tenderness, no masses, no pulsatile masses. [] Skin: Warm, dry, no erythema, no rash. [] Back: No tenderness, no CVA tenderness. [] Extremities: No tenderness, no cyanosis, no clubbing, ROM intact, no edema. [] Neurologic: Alert and oriented X 3, normal motor function, normal sensory function, no focal deficits noted. [] Psychologic: Affect very anxious, judgement normal, mood normal. [] Current Patient Data Vital Signs Vital Signs Date Time Temp Pulse Resp B/P (MAP) Pulse Ox O2 Delivery O2 Flow Rate FiO2 09/10/17 19:47 91 20 120/71 (87) 98 Room Air 09/10/17 17:27 98.7 Lab Results Laboratory Tests Test 09/10/17 17:45 09/10/17 19:11 White Blood Count 7.0 x10^3/uL (4.0-11.0) Red Blood Count 4.12 x10^6/uL (3.50-5.40) Hemoglobin 13.9 g/dL (12.0-15.5) Hematocrit 41.0 % (36.0-47.0) Mean Corpuscular Volume 100 fL (79-100) Mean Corpuscular Hemoglobin 34 pg (25-35) Mean Corpuscular Hemoglobin Concent 34 g/dL (31-37) Red Cell Distribution Width 14.2 % (11.5-14.5) Platelet Count 253 x10^3/uL (140-400) Neutrophils (%) (Auto) 68 % (31-73) Lymphocytes (%) (Auto) 25 % (24-48) Monocytes (%) (Auto) 6 % (0-9) Eosinophils (%) (Auto) 1 % (0-3) Basophils (%) (Auto) 1 % (0-3) Neutrophils # (Auto) 4.7 x10^3uL (1.8-7.7) Lymphocytes # (Auto) 1.8 x10^3/uL (1.0-4.8) Monocytes # (Auto) 0.4 x10^3/uL (0.0-1.1) Eosinophils # (Auto) 0.0 x10^3/uL (0.0-0.7) Basophils # (Auto) 0.0 x10^3/uL (0.0-0.2) Prothrombin Time 12.2 SEC (9.4-11.4) H Prothrombin Time INR 1.2 (0.9-1.1) H PTT 30 SEC (23-33) D-Dimer (Leyda) 0.34 mg/L (0.00-0.50) Sodium Level 137 mmol/L (136-145) Potassium Level 3.8 mmol/L (3.5-5.1) Chloride Level 102 mmol/L (98-107) Carbon Dioxide Level 23 mmol/L (21-32) Anion Gap 12 (6-14) Blood Urea Nitrogen 17 mg/dL (7-20) Creatinine 1.3 mg/dL (0.6-1.0) H Estimated GFR (Cockcroft-Gault) 42.2 Glucose Level 94 mg/dL (70-99) Calcium Level 9.0 mg/dL (8.5-10.1) Magnesium Level 1.9 mg/dL (1.8-2.4) Total Bilirubin 0.5 mg/dL (0.2-1.0) Direct Bilirubin 0.1 mg/dL (0.0-0.2) Aspartate Amino Transferase (AST) 20 U/L (15-37) Alanine Aminotransferase (ALT) 31 U/L (14-59) Alkaline Phosphatase 72 U/L (46-116) Creatine Kinase 154 U/L (26-192) Creatine Kinase MB (Mass) 7.3 ng/mL (0.0-3.6) H Creatine Kinase MB Relative Index 4.7 % (0-4) H Troponin I Quantitative < 0.017 ng/mL (0-0.055) SA-Arh-T-Type Natriuretic Peptide 51 pg/mL (0-124) Total Protein 6.6 g/dL (6.4-8.2) Albumin 3.7 g/dL (3.4-5.0) Lipase 152 U/L (73-393) Urine Collection Type Unknown Urine Color Straw Urine Clarity Clear Urine pH 6.0 Urine Specific Abercrombie <=1.005 Urine Protein Neg (NEG-TRACE) Urine Glucose (UA) Neg mg/dL (NEG) Urine Ketones (Stick) Neg mg/dL (NEG) Urine Blood Neg (NEG) Urine Nitrite Neg (NEG) Urine Bilirubin Neg (NEG) Urine Urobilinogen Dipstick 0.2 mg/dL (0.2 mg/dL) Urine Leukocyte Esterase Neg (NEG) Urine RBC 0 /HPF (0-2) Urine WBC Occ /HPF (0-4) Urine Squamous Epithelial Cells Occ /LPF Urine Bacteria 0 /HPF (0-FEW) Urine Opiates Screen Neg (NEG) Urine Methadone Screen Neg (NEG) Urine Barbiturates Neg (NEG) Urine Phencyclidine Screen Neg (NEG) Urine Amphetamine/Methamphetamine Neg (NEG) Urine Benzodiazepines Screen Neg (NEG) Urine Cocaine Screen Neg (NEG) Urine Cannabinoids Screen Neg (NEG) Urine Ethyl Alcohol Neg (NEG) EKG EKG My interpretation of EKG shows a sinus rhythm at 99 bpm. There is some nonspecific contour changes anterior septal region. No findings of acute STEMI with contralateral changes.[] Radiology/Procedures Radiology/Procedures My interpretation of chest x-ray shows no acute cardiopulmonary changes. Mild hyperexpansion. Some arthritic changes. Does have a filter in Vena cava Course & Med Decision Making Course & Med Decision Making Pertinent Labs and Imaging studies reviewed. (See chart for details). Patient continue anticoagulants as directed. Patient to continue breathing treatments as directed. Patient to take Tylenol [id number] as needed for fever and chills. Patient gargle with Listerine 4 times a day. Patient follow-up primary care. Patient return if any concerns. Patient push fluids. Patient encouraged to stop smoking. Must keep follow up. Return if any concerns. [] Final Impression Final Impression 1. Dyspnea 2. Viral syndrome 3. Elevated creatinine 4. Anxiety disorder 5. History of fibromyalgia 6. Tobacco abuse 7. Hx. of DVT 2016 Problems: Draglyndsay Disclaimer [employer] Disclaimer This electronic medical record was generated, in whole or in part, using a voice recognition dictation system. ROGE RODRIGUEZ MD Sep 10, 2017 17:30
[2017-09-10] MEDS ORDERED: IV NORMAL SALINE 1,000ML 1,000 ML IV SCH (18:00)
[2017-09-10] MEDS ORDERED: ASPIRIN 325 MG TABLET PO ONE (18:00)
[2017-09-10 18:23] LABS: BASO % 1 % (0-3); EOS % 1 % (0-3); HEMOGLOBIN 13.9 g/dL (12.0-15.5); LYMPH # 1.8 x10^3/uL (1.0-4.8); LYMPH % 25 % (24-48); MEAN CORPUSCULAR HEMOGLOBIN 34 pg (25-35); MEAN CORPUSCULAR HGB CONC 34 g/dL (31-37); MEAN CORPUSCULAR VOLUME 100 fL (79-100); MONO # 0.4 x10^3/uL (0.0-1.1); MONO % 6 % (0-9); NEUT # 4.7 x10^3uL (1.8-7.7); NEUT % 68 % (31-73); PLATELET COUNT 253 x10^3/uL (140-400); RED BLOOD COUNT 4.12 x10^6/uL (3.50-5.40); RED CELL DISTRIBUTION WIDTH 14.2 % (11.5-14.5)
--- NOTE | 2017-09-10 19:05 | EKG ---
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
[2017-09-10 19:31] LABS: ALBUMIN 3.7 g/dL (3.4-5.0); CREATININE 1.3 mg/dL (0.6-1.0); DIRECT BILIRUBIN 0.1 mg/dL (0.0-0.2); GFR 42.2; MAGNESIUM 1.9 mg/dL (1.8-2.4); POTASSIUM 3.8 mmol/L (3.5-5.1); TOTAL BILIRUBIN 0.5 mg/dL (0.2-1.0); TOTAL PROTEIN 6.6 g/dL (6.4-8.2)
[2017-09-10 19:47] VITALS: BP 120/71
[2017-09-10 19:51] LABS: BARBITURATES NEG (NEG); BENZODIAZEPINES NEG (NEG); CANNABINOIDS NEG (NEG); COCAINE NEG (NEG); METHADONE NEG (NEG); OPIATES NEG (NEG); PHENCYCLIDINE NEG (NEG)
[2017-09-10 19:53] LABS: AMPHETAMINE/METHAMPHETAMINE NEG (NEG)
[2017-09-10 19:58] LABS: BACTERIA,URINE 0 /HPF (0-FEW); BILIRUBIN,URINE NEG (NEG); CLARITY,URINE CLEAR; COLOR,URINE STRAW; GLUCOSE,URINE NEG (NEG); NITRITE,URINE NEG (NEG); RBC,URINE 0 /HPF (0-2); SQUAMOUS EPITHELIAL CELL,UR OCC /LPF; UROBILINOGEN,URINE 0.2 mg/dL (0.2 mg/dL); WBC,URINE OCC /HPF (0-4)
--- NOTE | 2017-09-11 10:57 | RAD ---
PA AND LATERAL CHEST RADIOGRAPH Clinical Indication: complaints dyspnea. History of PE. Comparison: AP chest 08/18/2017. Findings: The cardiomediastinal silhouette is normal. Pulmonary vasculature is normal. The lungs are clear. No pleural effusion or pneumothorax is seen. There is no acute bone abnormality. IVC filter is partially seen. IMPRESSION: No acute cardiopulmonary process.
== END 2017-09-10 20:30 | disposition home or self-care (01) ==
LOC: ER 17:08
DX: B34.9 Viral infection, unspecified (principal); R06.00 Dyspnea, unspecified; F41.9 Anxiety disorder, unspecified; M79.7 Fibromyalgia; R79.89 Other specified abnormal findings of blood chemistry; J45.909 Unspecified asthma, uncomplicated; I10 Essential (primary) hypertension; F31.9 Bipolar disorder, unspecified; F17.200 Nicotine dependence, unspecified, uncomplicated; F10.20 Alcohol dependence, uncomplicated; Z86.718 Personal history of other venous thrombosis and embolism; Z86.711 Personal history of pulmonary embolism; Z88.5 Allergy status to narcotic agent
CPT/HCPCS: 36415; 71046; 80048; 80076; 80307; 81001; 82553; 83690; 83735; 83880; 84443; 84484; 85025; 85379; 85610; 85730; 93005; 96360; 99285-25; G0479; J7030

== ENCOUNTER 2017-12-09 17:44 | Emergency (ER) | payer BC ==
[2017-12-09 17:45] VITALS: BP 142/78
--- NOTE | 2017-12-10 05:42 | PHYS DOC ---
Past History Past Medical History: Anxiety, Asthma, Bipolar, DVT, Fibromyalgia, Hypertension , Other Additional Past Medical Histor: DVT and PE in 07/11/2017 Past Surgical History: Tonsillectomy, Other Smoking: Less than 1pk/day Alcohol Use: Heavy Drug Use: None Adult General Chief Complaint Chief Complaint: SUICDAL IDEATION HPI HPI 57-year-old female with a history of anxiety depression and fibromyalgia presented to the emergency department and was triaged prior to my arrival, reporting that she had taken some Xarelto with the intent of hurting herself and that she was depressed and actively having suicidal thoughts. She does not have any bleeding. I requested paperwork for court hold but was told by entire staff that hospital policy was to not restrain anyone from leaving even when they are suicidal, and that it was "against [place] law here "to place a court hold on a patient. The staff had called the nursing supervisor telephone clerks "Ellyn" who confirmed that the patient could not be held against her will based on what she described as "[place] law "and hospital policy. I tried to addiction counselor patient that we were trying to help her and would like to get her evaluated by our psychiatric staff that she was verbally abusive and insulting and refused any further care. Patient walked out of the emergency department accompanied by security. Police were called by Val the charge nurse who was also this patient's nurse. Val made it clear to police that the patient was actively suicidal and they responded that they would do a "welfare check" on the patient and proceed accordingly. I discussed this my director Dr Manny Gomez while the patient was walking out. He concurred with my plan to call the police and notify them of the concerns . After the patient had departed was able to discuss these events with Bonita the ER nursing supervisor telephone clerks. She was aware that the entire ER staff insisted to me that hospital policy was unequivocally that the patient be allowed to leave. Bonita stated that she was not sure of the policy and that she would look into it. Review of Systems Review of Systems Constitutional: Denies fever or chills [] Eyes: Denies change in visual acuity, redness, or eye pain [] HENT: Denies nasal congestion or sore throat [] Respiratory: Denies cough or shortness of breath [] Cardiovascular: No additional information not addressed in HPI [] GI: Denies abdominal pain, nausea, vomiting, bloody stools or diarrhea [] : Denies dysuria or hematuria [] Musculoskeletal: Denies back pain or joint pain [] Integument: Denies rash or skin lesions [] Neurologic: Denies headache, focal weakness or sensory changes [] Endocrine: Denies polyuria or polydipsia [] All other systems were reviewed and found to be within normal limits, except as documented in this note. Allergies Allergies Allergies Coded Allergies Type Severity Reaction Last Updated Verified codeine Allergy Mild Nausea and Vomiting 08/18/17 No Physical Exam Physical Exam Constitutional: Well developed, well nourished, no acute distress, non-toxic appearance. [] HENT: Normocephalic, atraumatic, bilateral external ears normal, oropharynx moist, no oral exudates, nose normal. [] Eyes: EOMI, conjunctiva normal, no discharge. [] Neck: Normal range of motion, no tenderness, supple, no stridor. [] Cardiovascular: No tachycardia Lungs & Thorax: Normal respiratory rate with no asymmetry of the chest wall excursion and no increased work of breathing Abdomen: Nondistended abdomen Skin: Warm, dry, no erythema, no rash. [] Back: Normal supple appearing neck Extremities: no cyanosis, no clubbing, ROM intact, no edema. [] Neurologic: Alert and oriented X 3, normal motor function, normal sensory function, no focal deficits noted. [] Psychologic: Anxious affect, anger, depressed mood Current Patient Data Vital Signs Vital Signs Date Time Temp Pulse Resp B/P (MAP) Pulse Ox O2 Delivery O2 Flow Rate FiO2 12/09/17 17:45 97.9 103 20 98 Room Air EKG EKG [] Radiology/Procedures Radiology/Procedures [] Course & Med Decision Making Course & Med Decision Making Pertinent Labs and Imaging studies reviewed. (See chart for details) See history of present illness [] Dragon Disclaimer Dragon Disclaimer This electronic medical record was generated, in whole or in part, using a voice recognition dictation system. Departure Departure: Impression: Primary Impression: Left against medical advice Additional Impressions: Suicidal thoughts Depression Disposition: AGAINST MEDICAL ADVICE Condition: STABLE Problem Qualifiers MANNY CORDOVA MD December 10, 2017 05:42
== END 2017-12-09 18:32 | disposition left against medical advice (07) ==
LOC: EEVIPCON 17:44 → ER 17:44
DX: R45.851 Suicidal ideations (principal); F41.9 Anxiety disorder, unspecified; I10 Essential (primary) hypertension; J45.909 Unspecified asthma, uncomplicated; F31.9 Bipolar disorder, unspecified; M79.7 Fibromyalgia; F17.200 Nicotine dependence, unspecified, uncomplicated; F10.20 Alcohol dependence, uncomplicated; Z86.718 Personal history of other venous thrombosis and embolism; Z88.5 Allergy status to narcotic agent
CPT/HCPCS: 99284

== ENCOUNTER 2018-01-15 04:34 | Emergency (ER) | payer BC ==
[~2018-01-15] VITALS: Ht 157.5 cm; Wt 67.1 kg
--- NOTE | 2018-01-15 04:40 | ED.ADGEN ---
Past History Past Medical History: Anxiety, Asthma, Bipolar, DVT, Fibromyalgia, Hypertension , Other Additional Past Medical Histor: DVT and PE in 07/11/2017 (ROGE RODRIGUEZ MD) Past Surgical History: Tonsillectomy, Other (ROGE RODRIGUEZ MD) Smoking: Less than 1pk/day Alcohol Use: Heavy Drug Use: None (ROGE RODRIGUEZ MD) Adult General Chief Complaint Chief Complaint ".. I got this Lt. shoulder...pain.. I was wandering around the front yard with my two cats this morning... Yuriy my 10 yr old.. who lost his tail in a diesel truck accident and Rocho.. my other rescue cat.. .. he had feral mother.. he was fed with a dropper.. but now he is 40 pounds....".. " I ve really messed up this shoulder..." (ROGE RODRIGUEZ MD) HPI HPI Patient is a 57 year old female who presents with above hx and complaints of Lt shoulder pain and chest pain after a fall in the yard this morning...Pt. has movement of fingers and sensation but unable to move Lt shoulder because of pain. Pt. has been drinking this morning.. Pt. does have a cardiac and PE and DVT hx. Pt. does continue to smoke. Pt. currently follows with Dr. Rueda. Pt. denies other injury. Patient patient obviously appears to have a left shoulder dislocation and fracture. (ROGE RODRIGUEZ MD) Review of Systems Review of Systems Constitutional: Denies fever or chills [] Eyes: Denies change in visual acuity, redness, or eye pain [] HENT: Denies nasal congestion or sore throat [] Respiratory: Denies cough or shortness of breath [] Cardiovascular: No additional information not addressed in HPI [] GI: Denies abdominal pain, nausea, vomiting, bloody stools or diarrhea [] : Denies dysuria or hematuria [] Musculoskeletal: Denies back pain or joint pain []Except complaints in Lt shoulder. Integument: Denies rash or skin lesions [] Neurologic: Denies headache, focal weakness or sensory changes [] Endocrine: Denies polyuria or polydipsia [] All other systems were reviewed and found to be within normal limits, except as documented in this note. (ROGE RODRIGUEZ MD) Family History Family History Non-contributory (ROGE RODRIGUEZ MD) Current Medications Current Medications Current Medications Medications (Trade) Dose Ordered Sig/Yanique Start Time Stop Time Status Last Admin Dose Admin Aspirin (Children'S Aspirin) 324 mg 1X ONCE 01/15/18 05:30 01/15/18 05:31 DC Lactated Ringer's 1,000 ml @ 1,000 mls/hr Q1H 01/15/18 05:15 01/15/18 06:14 DC 01/15/18 05:59 1,000 MLS/HR Lorazepam (Ativan) 1 mg 1X ONCE 01/15/18 07:15 01/15/18 07:16 DC 01/15/18 07:09 1 MG Morphine Sulfate (Morphine 10mg Syringe) 10 mg 1X ONCE 01/15/18 05:15 01/15/18 05:21 DC 01/15/18 05:57 10 MG Multivitamins/ Minerals 10 ml/ Folic Acid 1 mg/ Thiamine HCl 100 mg/Dextrose/ Lactated Ringer's 1,011.2 ml @ 0 mls/hr 1X ONCE 01/15/18 06:45 01/15/18 06:46 DC Nicotine (Nicoderm Cq 21mg) 1 patch 1X ONCE 01/15/18 07:30 01/15/18 07:31 DC 01/15/18 07:13 1 PATCH (SAMINA PASTRANA MD) Current Medications See Nursing - for home meds. (ROGE RODRIGUEZ MD) Allergies Allergies Allergies Coded Allergies Type Severity Reaction Last Updated Verified codeine Allergy Mild Nausea and Vomiting 01/15/18 No (SAMINA PASTRANA MD) Physical Exam Physical Exam Constitutional: In acute distress, intoxicated in appearance. [] HENT: Normocephalic, atraumatic, bilateral external ears normal, oropharynx moist, no oral exudates, nose normal. [] Eyes: PERRLA, EOMI, conjunctiva normal, no discharge. [] Neck: Normal range of motion, no tenderness, supple, no stridor. [] Cardiovascular:Heart rate regular rhythm, no murmur []PMI to Lt. Lungs & Thorax: Bilateral breath sounds equal at apex with scattered wheezes on auscultation [] Abdomen: Bowel sounds normal, soft, no tenderness, no masses, no pulsatile masses. [Obese. Skin: Warm, dry, no erythema, no rash. [] Back: No tenderness, no CVA tenderness. [] Extremities: No tenderness, no cyanosis, no clubbing, ROM intact, no edema. [] Except pain in Lt shoulder as per HPI. Neurologic: Alert and oriented X 3, normal motor function, normal sensory function, no focal deficits noted. []Discoordinated. Psychologic: Affect anxious, judgement normal, mood normal. [] (ROGE RODRIGUEZ MD) Current Patient Data Vital Signs Vital Signs Date Time Temp Pulse Resp B/P (MAP) Pulse Ox O2 Delivery O2 Flow Rate FiO2 01/15/18 04:40 98.0 96 22 96 Room Air (SAMINA PASTRANA MD) Lab Results Laboratory Tests Test 01/15/18 05:40 01/15/18 06:10 White Blood Count 8.5 x10^3/uL (4.0-11.0) Red Blood Count 4.17 x10^6/uL (3.50-5.40) Hemoglobin 14.4 g/dL (12.0-15.5) Hematocrit 41.7 % (36.0-47.0) Mean Corpuscular Volume 100 fL (79-100) Mean Corpuscular Hemoglobin 35 pg (25-35) Mean Corpuscular Hemoglobin Concent 35 g/dL (31-37) Red Cell Distribution Width 14.1 % (11.5-14.5) Platelet Count 254 x10^3/uL (140-400) Neutrophils (%) (Auto) 81 % (31-73) H Lymphocytes (%) (Auto) 13 % (24-48) L Monocytes (%) (Auto) 5 % (0-9) Eosinophils (%) (Auto) 0 % (0-3) Basophils (%) (Auto) 1 % (0-3) Neutrophils # (Auto) 6.8 x10^3uL (1.8-7.7) Lymphocytes # (Auto) 1.1 x10^3/uL (1.0-4.8) Monocytes # (Auto) 0.4 x10^3/uL (0.0-1.1) Eosinophils # (Auto) 0.0 x10^3/uL (0.0-0.7) Basophils # (Auto) 0.0 x10^3/uL (0.0-0.2) Prothrombin Time 9.6 SEC (9.4-11.4) Prothrombin Time INR 0.9 (0.9-1.1) PTT 24 SEC (23-33) D-Dimer (Leyda) 3.35 mg/L (0.00-0.50) H Sodium Level 133 mmol/L (136-145) L Potassium Level 4.1 mmol/L (3.5-5.1) Chloride Level 98 mmol/L (98-107) Carbon Dioxide Level 22 mmol/L (21-32) Anion Gap 13 (6-14) Blood Urea Nitrogen 13 mg/dL (7-20) Creatinine 0.5 mg/dL (0.6-1.0) L Estimated GFR (Cockcroft-Gault) 127.2 Glucose Level 114 mg/dL (70-99) H Calcium Level 8.0 mg/dL (8.5-10.1) L Magnesium Level 1.9 mg/dL (1.8-2.4) Total Bilirubin 0.2 mg/dL (0.2-1.0) Direct Bilirubin 0.1 mg/dL (0.0-0.2) Aspartate Amino Transferase (AST) 27 U/L (15-37) Alanine Aminotransferase (ALT) 32 U/L (14-59) Alkaline Phosphatase 79 U/L (46-116) Creatine Kinase 164 U/L (26-192) Creatine Kinase MB (Mass) 3.4 ng/mL (0.0-3.6) Creatine Kinase MB Relative Index 2.1 % (0-4) Troponin I Quantitative < 0.017 ng/mL (0-0.055) RY-Lfk-G-Type Natriuretic Peptide 44 pg/mL (0-124) Total Protein 7.0 g/dL (6.4-8.2) Albumin 3.6 g/dL (3.4-5.0) Ethyl Alcohol Level 186 mg/dL (0-10) H Urine Collection Type Unknown Urine Color Makenzie Urine Clarity Hazy Urine pH 6.0 Urine Specific Kyle 1.025 Urine Protein 100 mg/dl (NEG-TRACE) Urine Glucose (UA) Neg mg/dL (NEG) Urine Ketones (Stick) Trace mg/dL (NEG) Urine Blood Neg (NEG) Urine Nitrite Neg (NEG) Urine Bilirubin Neg (NEG) Urine Urobilinogen Dipstick 0.2 mg/dL (0.2 mg/dL) Urine Leukocyte Esterase Neg (NEG) Urine RBC 0 /HPF (0-2) Urine WBC 0 /HPF (0-4) Urine Squamous Epithelial Cells Few /LPF Urine Bacteria 0 /HPF (0-FEW) Urine Hyaline Casts Few /HPF Urine Mucus Marked /LPF Urine Opiates Screen Pos (NEG) Urine Methadone Screen Neg (NEG) Urine Barbiturates Neg (NEG) Urine Phencyclidine Screen Neg (NEG) Urine Amphetamine/Methamphetamine Neg (NEG) Urine Benzodiazepines Screen Pos (NEG) Urine Cocaine Screen Neg (NEG) Urine Cannabinoids Screen Neg (NEG) Urine Ethyl Alcohol Pos (NEG) (SAMINA PASTRANA MD) Lab Results Laboratory Tests Test 01/15/18 05:40 01/15/18 06:10 White Blood Count 8.5 x10^3/uL (4.0-11.0) Red Blood Count 4.17 x10^6/uL (3.50-5.40) Hemoglobin 14.4 g/dL (12.0-15.5) Hematocrit 41.7 % (36.0-47.0) Mean Corpuscular Volume 100 fL (79-100) Mean Corpuscular Hemoglobin 35 pg (25-35) Mean Corpuscular Hemoglobin Concent 35 g/dL (31-37) Red Cell Distribution Width 14.1 % (11.5-14.5) Platelet Count 254 x10^3/uL (140-400) Neutrophils (%) (Auto) 81 % (31-73) H Lymphocytes (%) (Auto) 13 % (24-48) L Monocytes (%) (Auto) 5 % (0-9) Eosinophils (%) (Auto) 0 % (0-3) Basophils (%) (Auto) 1 % (0-3) Neutrophils # (Auto) 6.8 x10^3uL (1.8-7.7) Lymphocytes # (Auto) 1.1 x10^3/uL (1.0-4.8) Monocytes # (Auto) 0.4 x10^3/uL (0.0-1.1) Eosinophils # (Auto) 0.0 x10^3/uL (0.0-0.7) Basophils # (Auto) 0.0 x10^3/uL (0.0-0.2) Prothrombin Time 9.6 SEC (9.4-11.4) Prothrombin Time INR 0.9 (0.9-1.1) PTT 24 SEC (23-33) D-Dimer (Leyda) 3.35 mg/L (0.00-0.50) H Sodium Level 133 mmol/L (136-145) L Potassium Level 4.1 mmol/L (3.5-5.1) Chloride Level 98 mmol/L (98-107) Carbon Dioxide Level 22 mmol/L (21-32) Anion Gap 13 (6-14) Blood Urea Nitrogen 13 mg/dL (7-20) Creatinine 0.5 mg/dL (0.6-1.0) L Estimated GFR (Cockcroft-Gault) 127.2 Glucose Level 114 mg/dL (70-99) H Calcium Level 8.0 mg/dL (8.5-10.1) L Magnesium Level 1.9 mg/dL (1.8-2.4) Total Bilirubin 0.2 mg/dL (0.2-1.0) Direct Bilirubin 0.1 mg/dL (0.0-0.2) Aspartate Amino Transferase (AST) 27 U/L (15-37) Alanine Aminotransferase (ALT) 32 U/L (14-59) Alkaline Phosphatase 79 U/L (46-116) Creatine Kinase 164 U/L (26-192) Creatine Kinase MB (Mass) 3.4 ng/mL (0.0-3.6) Creatine Kinase MB Relative Index 2.1 % (0-4) Troponin I Quantitative < 0.017 ng/mL (0-0.055) UV-Sqb-N-Type Natriuretic Peptide 44 pg/mL (0-124) Total Protein 7.0 g/dL (6.4-8.2) Albumin 3.6 g/dL (3.4-5.0) Ethyl Alcohol Level 186 mg/dL (0-10) H Urine Collection Type Unknown Urine Color Makenzie Urine Clarity Hazy Urine pH 6.0 Urine Specific Kyle 1.025 Urine Protein 100 mg/dl (NEG-TRACE) Urine Glucose (UA) Neg mg/dL (NEG) Urine Ketones (Stick) Trace mg/dL (NEG) Urine Blood Neg (NEG) Urine Nitrite Neg (NEG) Urine Bilirubin Neg (NEG) Urine Urobilinogen Dipstick 0.2 mg/dL (0.2 mg/dL) Urine Leukocyte Esterase Neg (NEG) Urine RBC 0 /HPF (0-2) Urine WBC 0 /HPF (0-4) Urine Squamous Epithelial Cells Few /LPF Urine Bacteria 0 /HPF (0-FEW) Urine Hyaline Casts Few /HPF Urine Mucus Marked /LPF Urine Opiates Screen Pos (NEG) Urine Methadone Screen Neg (NEG) Urine Barbiturates Neg (NEG) Urine Phencyclidine Screen Neg (NEG) Urine Amphetamine/Methamphetamine Neg (NEG) Urine Benzodiazepines Screen Pos (NEG) Urine Cocaine Screen Neg (NEG) Urine Cannabinoids Screen Neg (NEG) Urine Ethyl Alcohol Pos (NEG) (ROGE RODRIGUEZ MD) EKG EKG My interpretation EKG shows a sinus rhythm at 90 bpm. There is some nonspecific contour abnormalities in anterior septal region , but no findings of acute STEMI with contralateral changes[] (ROGE RODRIGUEZ MD) Radiology/Procedures Radiology/Procedures My interpretation of left shoulder shows a fracture dislocation of left humeral head. My interpretation of chest x-ray shows left shoulder humeral head fracture and dislocation. No acute cardiopulmonary findings appreciated.[] (ROGE RODRIGUEZ MD) Course & Med Decision Making Course & Med Decision Making Pertinent Labs and Imaging studies reviewed. (See chart for details) Patient has special insurance that requires her not to be admitted in [facility]. Patient also cannot be admitted at [place] because Vandana- Pro- states his injury is out of his scope practice. Still attempting to find hospital that will accept her insurance and has surgical capabilities for her injury. So attempting hospital and surgery for pt. at [address] Pastrana will make disposition- (ROGE RODRIGUEZ MD) Course & Med Decision Making Doctor Lucía cardiovascular surgeon orthopedic physician accepted patient [facility] in [place] at 0817 (SAMINA PASTRANA MD) Final Impression Final Impression 1. Lt shoulder[] fracture and dislocation of the humeral head 2. Alcohol abuse 3 Tobacco abuse 4. Hyponatremia 5. Alcohol Intoxication- ETOH 186. (ROGE RODRIGUEZ MD) Final Impression Left Shoulder dislocation and fracture (SAMINA PASTRANA MD) Dragon Disclaimer Dragon Disclaimer This electronic medical record was generated, in whole or in part, using a voice recognition dictation system. (ROGE RODRIGUEZ MD) Departure Time of Disposition: 08:30 (SAMINA PASTRANA MD) Disposition: 02 XFER SHT-TRM HOSP ([facility]) Condition: IMPROVED ROGE RODRIGUEZ MD Jan 15, 2018 04:40 SAMINA PASTRANA MD Jan 15, 2018 08:34
[2018-01-15] MEDS: ASPIRIN 81 MG TAB.CHEW PO ONE (05:30)
[2018-01-15] MEDS: MORPHINE SULFATE 10 MG/ML SYRINGE. SQ ONE (05:57)
[2018-01-15] MEDS: IV RINGERS SOLUTION,LACTATED 1,000 ML IV SCH (05:59)
[2018-01-15 06:08] LABS: BASO % 1 % (0-3); EOS % 0 % (0-3); HEMATOCRIT 41.7 % (36.0-47.0); HEMOGLOBIN 14.4 g/dL (12.0-15.5); LYMPH # 1.1 x10^3/uL (1.0-4.8); LYMPH % 13 % (24-48); MEAN CORPUSCULAR HEMOGLOBIN 35 pg (25-35); MEAN CORPUSCULAR HGB CONC 35 g/dL (31-37); MEAN CORPUSCULAR VOLUME 100 fL (79-100); MONO # 0.4 x10^3/uL (0.0-1.1); MONO % 5 % (0-9); NEUT # 6.8 x10^3uL (1.8-7.7); NEUT % 81 % (31-73); PLATELET COUNT 254 x10^3/uL (140-400); RED BLOOD COUNT 4.17 x10^6/uL (3.50-5.40); RED CELL DISTRIBUTION WIDTH 14.1 % (11.5-14.5); WHITE BLOOD COUNT 8.5 x10^3/uL (4.0-11.0)
[2018-01-15 06:31] LABS: ALBUMIN 3.6 g/dL (3.4-5.0); CREATININE 0.5 mg/dL (0.6-1.0); DIRECT BILIRUBIN 0.1 mg/dL (0.0-0.2); GFR 127.2; MAGNESIUM 1.9 mg/dL (1.8-2.4); POTASSIUM 4.1 mmol/L (3.5-5.1); TOTAL BILIRUBIN 0.2 mg/dL (0.2-1.0)
[2018-01-15 06:38] LABS: BACTERIA,URINE 0 /HPF (0-FEW); BILIRUBIN,URINE NEG (NEG); CLARITY,URINE HAZY; COLOR,URINE AMBER; GLUCOSE,URINE NEG (NEG); HYALINE CASTS, URINE FEW /HPF; NITRITE,URINE NEG (NEG); RBC,URINE 0 /HPF (0-2); SQUAMOUS EPITHELIAL CELL,UR FEW /LPF; UROBILINOGEN,URINE 0.2 mg/dL (0.2 mg/dL); WBC,URINE 0 /HPF (0-4)
[2018-01-15 06:44] LABS: BARBITURATES NEG (NEG); BENZODIAZEPINES POS (NEG); CANNABINOIDS NEG (NEG); COCAINE NEG (NEG); METHADONE NEG (NEG); OPIATES POS (NEG); PHENCYCLIDINE NEG (NEG)
[2018-01-15 06:46] LABS: AMPHETAMINE/METHAMPHETAMINE NEG (NEG)
[2018-01-15] MEDS ORDERED: LORazepam 2 MG/ML VIAL ONE (07:03)
[2018-01-15] MEDS: LORazepam 2 MG/ML VIAL IV ONE (07:09)
[2018-01-15] MEDS: NICOTINE 21MG PATCH. TD ONE (07:13)
[2018-01-15] MEDS: MVI, ADULT NO.4 WITH VIT K 10 ML, FOLIC ACID 1 MG, THIAMINE 100 MG in IV DEXTROSE 5%-LA... IV ONE ×4 (08:00)
--- NOTE | 2018-01-15 08:19 | RAD ---
Three-view left shoulder radiographs to include AP and lateral radiographs of the left humerus 01/15/2018 CLINICAL HISTORY: Fall with injury to the left shoulder and arm. AP internal and external rotation and transscapular digital radiographs of the left shoulder were obtained. AP and lateral digital radiographs of the left humerus were obtained. An acute comminuted fracture of the left humeral neck is seen which extends to involve the superior aspect of the humeral head along the greater tuberosity. The major distal fracture fragment is displaced anteriorly and superiorly. Slight overriding of the fracture fragments is noted. The fractures are slightly impacted. Subluxation of the left humeral head relative to the glenoid is noted. No additional fracture is seen. IMPRESSION: Acute comminuted fracture of the proximal left humerus as outlined above. Electronically signed by: Mata Borges MD (01/15/2018 8:15 AM) [facility]
[2018-01-15 08:30] VITALS: BP 135/82
--- NOTE | 2018-01-15 10:19 | RAD ---
AP chest radiograph 01/15/2018 CLINICAL HISTORY: Left arm pain, hypertension and history of pulmonary embolism. An AP digital radiograph of the chest was obtained. Comparison study is dated 05/10/2018. The cardiac silhouette is normal in size. The thoracic aorta is minimally tortuous. No acute pulmonary infiltrate is seen. No pleural effusion or pneumothorax is noted. An acute comminuted fracture of the left humeral head/neck is seen. IMPRESSION: 1. No radiographic evidence of active cardiopulmonary disease. 2. Acute comminuted fracture of the left humeral head/neck. Electronically signed by: Mata Borges MD (01/15/2018 10:15 AM) [facility]
--- NOTE | 2018-01-15 19:30 | EKG ---
[address] [address] Test Date: 2018-01-15 Test Time: 05:17:40 Pat Name: LUPILLO STEWART Department: Room: Gender: F Brusher And She[employer]: : 1960 Requested By: ROGE RODRIGUEZ Order Number: [id number] Reading MD: Didier Wynn MD Measurements Intervals [place] Rate: 90 P: 65 GA: 158 QRS: 38 QRSD: 84 T: 52 QT: 360 QTc: 444 Interpretive Statements SINUS RHYTHM Electronically Signed On 01-17-2018 12:13:07 CDT by Didier Wynn MD
--- NOTE | 2018-01-17 00:44 | PN ---
DATE: 01/16/2018 SUBJECTIVE: The patient is resting, slightly propped up, sleeping comfortably in no apparent distress. On questioning her, she complained that she is tired, but all day, most of the redness and swelling of the right lower extremity has subsided. Her upper extremity continued to be swollen, although the redness has subsided and she is afebrile. In fact, her white cell count is down to 7.5. PHYSICAL EXAMINATION: GENERAL: When I examined her, she looked well and was clearly in no apparent respiratory distress, pale, but no jaundice, cyanosis or thyromegaly. No jugular venous distension. No lower limb edema. VITAL SIGNS: Her heart rate was 91, blood pressure was 135/80, temperature was 98.2, respiratory rate 20 and oxygen saturation was 99% on room air. HEAD, EYES, EARS, NOSE AND THROAT: Showed normocephalic, atraumatic. NECK: Supple. HEART: Showed normal first and second heart sounds. No gallop, rub or murmur. CHEST: Clear to auscultation. No crepitation or rhonchi. ABDOMEN: Distended, soft, nontender. No guarding or rigidity. No organomegaly. All hernial orifice intact. Bowel sounds are normal. NEUROLOGIC: She was sleepy, but arousable. Cranial nerves are intact. She moves extremities without difficulty. Her intake was 2800, no output was recorded. LABORATORY DATA: Her lab work this morning showed a white cell count 7500, hemoglobin 14, hematocrit 42, MCV 94 and platelet count 306,000. Her chemistry showed a serum sodium 138, potassium 4.2, chloride 104, bicarbonate 28, anion gap of 6, BUN 11, creatinine 0.9. Estimated GFR was 69 mL per minute. Her glucose 148. Calcium was 7.9. Total bilirubin, AST, ALT, alkaline phosphatase are normal. Total protein 6. Albumin was 2.7. TSH was 2.371. ASSESSMENT: 1. Cellulitis, her both upper extremities and right lower extremity, responding well to the IV antibiotic. 2. Polysubstance abuse. 3. History of hepatitis C. 4. Anxiety disorder. 5. Chest pain, elevated D-dimer; however, the venous Doppler ultrasound of both upper extremities and right lower extremity are negative for deep vein thrombosis. PLAN: My plan is to cut down her ventilation/perfusion scan, was read as low probability for pulmonary embolism. I will cut down her Lovenox to 40 mg. I discontinued the IV fluid and cut down the Lovenox to only prophylactic dose. DOROTHEA COLON MD DR: EFREN/mathew JOB#: [id number] / [id number]
== END 2018-01-15 08:30 | disposition short-term general hospital (02) ==
LOC: ER 04:34
DX: S42.92XA Fracture of left shoulder girdle, part unspecified, initial encounter for closed fracture (principal); J45.909 Unspecified asthma, uncomplicated; F41.9 Anxiety disorder, unspecified; F32.9 Major depressive disorder, single episode, unspecified; M79.7 Fibromyalgia; I10 Essential (primary) hypertension; Z86.718 Personal history of other venous thrombosis and embolism; F10.129 Alcohol abuse with intoxication, unspecified; F17.200 Nicotine dependence, unspecified, uncomplicated; Z88.5 Allergy status to narcotic agent; W19.XXXA Unspecified fall, initial encounter; Y93.89 Activity, other specified; Y99.8 Other external cause status; Y92.89 Other specified places as the place of occurrence of the external cause
CPT/HCPCS: 36415; 71045; 73030; 73060; 80048; 80076; 80307; 81001; 82553; 83735; 83880; 84443; 84484; 85025; 85379; 85610; 85730; 93005; 96365; 96372; 96375; 99285; G0480; J2060; J2270; J7120; G0479

== ENCOUNTER → 2018-04-20 | Outpatient (CLI) | payer BC ==
[~2018-04-20] MED LIST changes: -IPRA3AMP NEB; +IPRA3AMP29 NEB; +TRAZ-85 PO; -TRAZ50TA15 PO
--- NOTE | 2018-04-20 13:00 | RAD ---
EXAM: Dual energy x-ray absorptiometry (DEXA). HISTORY: Postmenopausal female presents for osteoporosis screening. COMPARISON: None. TECHNIQUE: Dual energy x-ray absorptiometry of the lumbar spine and right hip was performed. Calculation of bone mineral density based on standard deviations above or below the expected young adult normal value (T-score) was completed. FINDINGS: The average bone mineral density in the 1st through 4th lumbar vertebrae is 1.242 g/cmxcm, corresponding with a T-score of 0.5. The average total bone mineral density in the right hip is 0.907 g/cmxcm, corresponding with a T-score of -0.4. The bone mineral density localized to the right femoral neck corresponds with a T-score of -1.0. IMPRESSION: 1. Normal bone mineral density measured for the lumbar spine and total right hip. 2. Borderline osteopenia measured at the right femoral neck. Note: Definitions established by the World Health Organization: 1. Normal: T-score is -1.0 or above. 2. Osteopenia: T-score is between -1.0 and -2.5 . 3. Osteoporosis: T-score is -2.5 or below. Electronically signed by: Martha Lam MD (04/20/2018 12:57 PM) [facility]
--- NOTE | 2018-05-03 08:24 | RAD ---
DATE: 04/20/2018 EXAM: DIGITAL SCREEN BILAT W/CAD HISTORY: Routine screening COMPARISON: 06/23/2010 screening mammogram performed at [facility] in [place] This study was interpreted with the benefit of Computerized Aided Detection (CAD ). Breast Density: SCATTERED The breast parenchyma shows scattered fibroglandular densities. Breast parenchyma level B. FINDINGS: Parenchymal distribution is stable. No suspicious calcifications, masses, or distortion. Benign calcification of the breast. IMPRESSION: BI-RADS CATEGORY: 2 BENIGN FINDING(S) RECOMMENDED FOLLOW-UP: Annual screening mammography recommended. PQRS compliance statement: Patient information was entered into a reminder system with a target due date in 1 year for the next mammogram. Mammography is a sensitive method for finding small breast cancers, but it does not detect them all and is not a substitute for careful clinical examination. A negative mammogram does not negate a clinically suspicious finding and should not result in delay in biopsying a clinically suspicious abnormality. "Our facility is accredited by the [employer] Mammography Program." [facility]
== END | disposition home or self-care (01) ==
LOC: DXRAD 10:03
PROVIDERS: ATTEND Physician Assistant Medical
DX: Z12.31 Encounter for screening mammogram for malignant neoplasm of breast (principal); Z13.820 Encounter for screening for osteoporosis; I10 Essential (primary) hypertension; E03.9 Hypothyroidism, unspecified; Z78.0 Asymptomatic menopausal state; Z86.711 Personal history of pulmonary embolism; Z86.718 Personal history of other venous thrombosis and embolism; Z87.891 Personal history of nicotine dependence; Z82.49 Family history of ischemic heart disease and other diseases of the circulatory system; Z82.5 Family history of asthma and other chronic lower respiratory diseases; Z82.3 Family history of stroke
CPT/HCPCS: 77067; 77080

== ENCOUNTER 2018-07-21 10:39 | Emergency (ER) | payer BC ==
[~2018-07-21] VITALS: Ht 160 cm; Wt 63.5 kg
[~2018-07-21 10:39] MED LIST changes: -HYDR-2766 PO; +HYDR-2769 PO; +HYDR-3165 PO; -HYDR-971 PO
[2018-07-21] MEDS ORDERED: IV NORMAL SALINE 1,000ML 1,000 ML IV ONE (11:00)
[2018-07-21 11:23] LABS: BASO # 0.1 x10^3/uL (0.0-0.2); BASO % 1 % (0-3); EOS # 0.1 x10^3/uL (0.0-0.7); EOS % 1 % (0-3); HEMATOCRIT 43.8 % (36.0-47.0); HEMOGLOBIN 15.1 g/dL (12.0-15.5); LYMPH # 1.6 x10^3/uL (1.0-4.8); LYMPH % 24 % (24-48); MEAN CORPUSCULAR HEMOGLOBIN 33 pg (25-35); MEAN CORPUSCULAR HGB CONC 35 g/dL (31-37); MEAN CORPUSCULAR VOLUME 96 fL (79-100); MONO # 0.3 x10^3/uL (0.0-1.1); MONO % 5 % (0-9); NEUT # 4.5 x10^3uL (1.8-7.7); NEUT % 69 % (31-73); PLATELET COUNT 346 x10^3/uL (140-400); RED BLOOD COUNT 4.57 x10^6/uL (3.50-5.40); RED CELL DISTRIBUTION WIDTH 15.6 % (11.5-14.5); WHITE BLOOD COUNT 6.6 x10^3/uL (4.0-11.0)
--- NOTE | 2018-07-21 11:30 | PHYS DOC ---
Past History Past Medical History: Alcoholism, Anxiety, Asthma, Bipolar, DVT, Fibromyalgia, Hypertension Additional Past Medical Histor: DVT and PE in 07/11/2017 Past Surgical History: Tonsillectomy Smoking: Less than 1pk/day Alcohol Use: Heavy Drug Use: None Adult General Chief Complaint Chief Complaint: ABDOMINAL PAIN HPI HPI 58-year-old female presents with abdominal pain. The patient is concerned about being constipated. She states that she has not had a bowel movement in over a week. She feels that she has increased abdominal bloating and some abdominal pain. Patient states it is a cramping pain. It is not severe. The patient has tried several [id number] medications and enemas. She is still passing gas. The patient is on narcotic pain medications daily. She also has "a couple drinks" of alcohol a day. She denies fever or chills. She denies dysuria or frequency. Review of Systems Review of Systems Constitutional: Denies fever or chills [] Eyes: Denies change in visual acuity, redness, or eye pain [] HENT: Denies nasal congestion or sore throat [] Respiratory: Denies cough or shortness of breath [] Cardiovascular: No additional information not addressed in HPI [] GI: Diffuse abdominal pain, constipation[] : Denies dysuria or hematuria [] Musculoskeletal: Denies back pain or joint pain [] Integument: Denies rash or skin lesions [] Neurologic: Denies headache, focal weakness or sensory changes [] Endocrine: Denies polyuria or polydipsia [] All other systems were reviewed and found to be within normal limits, except as documented in this note. Current Medications Current Medications Current Medications Medications (Trade) Dose Ordered Sig/Yanique Start Time Stop Time Status Last Admin Dose Admin Sodium Chloride 1,000 ml @ 1,000 mls/hr 1X ONCE 07/21/18 11:00 07/21/18 11:59 07/21/18 11:12 1,000 MLS/HR Allergies Allergies Allergies Coded Allergies Type Severity Reaction Last Updated Verified codeine Allergy Mild Nausea and Vomiting 01/15/18 No Physical Exam Physical Exam Constitutional: Well developed, well nourished, no acute distress, non-toxic appearance. [] HENT: Normocephalic, atraumatic, bilateral external ears normal, oropharynx moist, no oral exudates, nose normal. [] Eyes: PERRLA, EOMI, conjunctiva normal, no discharge. [] Neck: Normal range of motion, no tenderness, supple, no stridor. [] Cardiovascular:Heart rate regular rhythm, no murmur [] Lungs & Thorax: Bilateral breath sounds clear to auscultation [] Abdomen: Bowel sounds normal, soft, mild diffuse tenderness, no masses, no pulsatile masses. [] Skin: Warm, dry, no erythema, no rash. [] Back: No tenderness, no CVA tenderness. [] Extremities: No tenderness, no cyanosis, no clubbing, ROM intact, no edema. [] Neurologic: Alert and oriented X 3, normal motor function, normal sensory function, no focal deficits noted. [] Psychologic: Affect normal, judgement normal, mood anxious. [] Current Patient Data Lab Results Laboratory Tests Test 07/21/18 11:05 White Blood Count 6.6 x10^3/uL (4.0-11.0) Red Blood Count 4.57 x10^6/uL (3.50-5.40) Hemoglobin 15.1 g/dL (12.0-15.5) Hematocrit 43.8 % (36.0-47.0) Mean Corpuscular Volume 96 fL (79-100) Mean Corpuscular Hemoglobin 33 pg (25-35) Mean Corpuscular Hemoglobin Concent 35 g/dL (31-37) Red Cell Distribution Width 15.6 % (11.5-14.5) H Platelet Count 346 x10^3/uL (140-400) Neutrophils (%) (Auto) 69 % (31-73) Lymphocytes (%) (Auto) 24 % (24-48) Monocytes (%) (Auto) 5 % (0-9) Eosinophils (%) (Auto) 1 % (0-3) Basophils (%) (Auto) 1 % (0-3) Neutrophils # (Auto) 4.5 x10^3uL (1.8-7.7) Lymphocytes # (Auto) 1.6 x10^3/uL (1.0-4.8) Monocytes # (Auto) 0.3 x10^3/uL (0.0-1.1) Eosinophils # (Auto) 0.1 x10^3/uL (0.0-0.7) Basophils # (Auto) 0.1 x10^3/uL (0.0-0.2) EKG EKG [] Radiology/Procedures Radiology/Procedures [] Impressions: Examination: CT of the abdomen pelvis with IV contrast HISTORY: History of constipation or abdominal pain COMPARISON: 09/26/2015 TECHNIQUE: Axial CT images of the abdomen pelvis were performed with IV contrast. Coronal and sagittal reformats are performed Exposure: One or more of the following individualized dose reduction techniques were utilized for this examination: 1. Automated exposure control 2. Adjustment of the mA and/or kV according to patient size 3. Use of iterative reconstruction technique FINDINGS: The bibasilar lungs are clear. No evidence of free air identified in the abdomen. The visualized liver, spleen, adrenals grossly appears unremarkable. The gallbladder is mildly distended. The stomach is mildly distended. Small hiatal hernia is identified. The small bowel is nondilated. The cecum is dilated measuring up to 9.5 cm in transverse dimension with liquid stool. There is dilatation of the ascending colon and the proximal transverse colon with liquid stool. There is narrowing of the distal transverse colon with focal thickening of the wall of the transverse colon suspicious for mucosal pathology such as neoplasm or stricture causing large bowel obstruction. The descending colon is collapsed. Urinary bladder is mildly distended. The bilateral kidneys enhance symmetrically. IVC filter identified in the inferior vena cava. Mild degenerative changes lumbar spine. IMPRESSION: 1. Focal narrowing with mucosal thickening of the distal transverse colon likely stricture or neoplasm causing large bowel obstruction with dilatation of the proximal transverse colon, ascending colon and the cecum. 2. Small hiatal hernia. Electronically signed by: Roland Morin MD (07/21/2018 12:37 PM) [id number] DICTATED AND SIGNED BY: ROLAND MORIN MD DATE: 07/21/18 1227 CC: JOHN RUIZ DO; OZIEL GUTIERREZ MD ~ Course & Med Decision Making Course & Med Decision Making Pertinent Labs and Imaging studies reviewed. (See chart for details) The patient's abdominal CT is significant for stricture or mass of the transverse colon with large bowel obstruction. Her labs are unremarkable except for a sodium of 129. The patient cannot be transferred to [facility] due to her insurance. She has been to [facility] in the past and would like to be transferred there. I discussed the patient with Dr. Duvvurri, the hospitalist as well as Dr. Marcelo, general surgery. They have accepted the patient for transfer. Patient will go by ambulance. [] Dragon Disclaimer Dragon Disclaimer This electronic medical record was generated, in whole or in part, using a voice recognition dictation system. Departure Departure: Referrals: OZIEL GUTIERREZ MD (PCP) JOHN RUIZ DO Jul 21, 2018 11:30
[2018-07-21 11:37] LABS: ALBUMIN 3.4 g/dL (3.4-5.0); CALCIUM 8.7 mg/dL (8.5-10.1); CREATININE 0.8 mg/dL (0.6-1.0); GFR 73.7; POTASSIUM 3.7 mmol/L (3.5-5.1); TOTAL BILIRUBIN 0.6 mg/dL (0.2-1.0); TOTAL PROTEIN 6.9 g/dL (6.4-8.2)
--- NOTE | 2018-07-21 11:40 | RAD ---
Single view supine abdomen HISTORY: Constipation. COMPARISON: None FINDINGS: Inferior vena cava filter noted. Right pelvic calcification, likely a uterine fibroid. Additional calcifications are likely vascular and/or phleboliths. There are several air-filled loops of small bowel left abdomen. No overtly obstructive bowel gas pattern. No appreciable stool burden in the colon. Cannot exclude free air on this exam. IMPRESSION: No appreciable stool burden in the colon. Several mildly air filled loops of small bowel, could indicate a mild ileus. Electronically signed by: Manny Claros MD (07/21/2018 11:36 AM) [id number]
[2018-07-21] MEDS ORDERED: IOHEXOL 300 MG/ML 75 ML VIAL. IV ONE (12:00)
--- NOTE | 2018-07-21 12:41 | RAD ---
Examination: CT of the abdomen pelvis with IV contrast HISTORY: History of constipation or abdominal pain COMPARISON: 09/26/2015 TECHNIQUE: Axial CT images of the abdomen pelvis were performed with IV contrast. Coronal and sagittal reformats are performed Exposure: One or more of the following individualized dose reduction techniques were utilized for this examination: 1. Automated exposure control 2. Adjustment of the mA and/or kV according to patient size 3. Use of iterative reconstruction technique FINDINGS: The bibasilar lungs are clear. No evidence of free air identified in the abdomen. The visualized liver, spleen, adrenals grossly appears unremarkable. The gallbladder is mildly distended. The stomach is mildly distended. Small hiatal hernia is identified. The small bowel is nondilated. The cecum is dilated measuring up to 9.5 cm in transverse dimension with liquid stool. There is dilatation of the ascending colon and the proximal transverse colon with liquid stool. There is narrowing of the distal transverse colon with focal thickening of the wall of the transverse colon suspicious for mucosal pathology such as neoplasm or stricture causing large bowel obstruction. The descending colon is collapsed. Urinary bladder is mildly distended. The bilateral kidneys enhance symmetrically. IVC filter identified in the inferior vena cava. Mild degenerative changes lumbar spine. IMPRESSION: 1. Focal narrowing with mucosal thickening of the distal transverse colon likely stricture or neoplasm causing large bowel obstruction with dilatation of the proximal transverse colon, ascending colon and the cecum. 2. Small hiatal hernia. Electronically signed by: Roland Morin MD (07/21/2018 12:37 PM) [id number]
[2018-07-21 14:40] VITALS: BP 125/92
== END 2018-07-21 15:20 | disposition short-term general hospital (02) ==
LOC: ER 10:39
DX: K44.9 Diaphragmatic hernia without obstruction or gangrene (principal); K56.609 Unspecified intestinal obstruction, unspecified as to partial versus complete obstruction; F10.20 Alcohol dependence, uncomplicated; F41.9 Anxiety disorder, unspecified; J45.909 Unspecified asthma, uncomplicated; F31.9 Bipolar disorder, unspecified; M79.7 Fibromyalgia; I10 Essential (primary) hypertension; F17.200 Nicotine dependence, unspecified, uncomplicated; Y90.9 Presence of alcohol in blood, level not specified; Z86.718 Personal history of other venous thrombosis and embolism; Z86.711 Personal history of pulmonary embolism; Z88.5 Allergy status to narcotic agent
CPT/HCPCS: 36415; 74018; 74177; 80053; 83605; 83690; 85025; 99285; Q9967; J7030

== ENCOUNTER 2018-08-10 16:50 | Emergency (ER) | payer BC ==
[~2018-08-10] VITALS: Ht 160 cm; Wt 67.1 kg
[2018-08-10] MEDS ORDERED: CEPH-264 PO (17:26)
[2018-08-10] MEDS ORDERED: SULF1TAB24 PO (17:26)
--- NOTE | 2018-08-10 17:26 | PHYS DOC ---
Past History Past Medical History: Alcoholism, Anxiety, Asthma, Bipolar, DVT, Fibromyalgia, Hypertension Additional Past Medical Histor: DVT and PE in 07/11/2017 Past Surgical History: Tonsillectomy Smoking: Less than 1pk/day Alcohol Use: Heavy Drug Use: None Adult General Chief Complaint Chief Complaint: POST-OP PROBLEM HPI HPI Patient is a 58 year old female who presents with complaining of surgical wound drainage. Patient states she had laparotomy on July 21 for a colon mass with colon resection that became a benign mass. Patient seen by surgeon 4 days ago for staple removal and started on Augmentin. Patient complaining of drainage of distal part of wound since yesterday without fever and chills, pain , nausea and vomiting. Review of Systems Review of Systems Constitutional: Denies fever or chills [] Eyes: Denies change in visual acuity, redness, or eye pain [] HENT: Denies nasal congestion or sore throat [] Respiratory: Denies cough or shortness of breath [] Cardiovascular: No additional information not addressed in HPI [] GI: Denies abdominal pain, nausea, vomiting, bloody stools or diarrhea [] : Denies dysuria or hematuria [] Musculoskeletal: Denies back pain or joint pain [] Integument: Denies rash or skin lesions [] Neurologic: Denies headache, focal weakness or sensory changes [] Endocrine: Denies polyuria or polydipsia [] All other systems were reviewed and found to be within normal limits, except as documented in this note. Allergies Allergies Allergies Coded Allergies Type Severity Reaction Last Updated Verified codeine Allergy Mild Nausea and Vomiting 01/15/18 No Physical Exam Physical Exam Constitutional: Well nourished,mil distress, non-toxic appearance. [] HENT: Normocephalic, atraumatic Eyes: PERRLA, EOMI, conjunctiva normal, no discharge. [] Neck: Normal range of motion, no tenderness, supple, no stridor. [] Cardiovascular:Heart rate regular rhythm, no murmur [] Lungs & Thorax: Bilateral breath sounds clear to auscultation [] Abdomen: Bowel sounds normal, soft, no tenderness, no masses, no pulsatile masses midline surgical wound with erythema and drainage of pus distal of the wound with opening of 0.3 cm. [] Back: No tenderness, no CVA tenderness. [] Extremities: No tenderness, no cyanosis, no clubbing, ROM intact, no edema. [] Neurologic: Alert and oriented X 3, normal motor function, normal sensory function, no focal deficits noted. [] Psychologic: Affect normal, judgement normal, mood normal. [] EKG EKG [] Radiology/Procedures Radiology/Procedures [] Course & Med Decision Making Course & Med Decision Making Evaluation of patient in ER showed 58-year-old female patient with postsurgical wound infection. Culture was obtained and wanted was squeezed and dressing was applied. Patient currently on Augmentin that was changed to Keflex and Bactrim and patient instructed to change dressing twice a day and as needed and follow up with her surgeon. Dragon Disclaimer Dragon Disclaimer This electronic medical record was generated, in whole or in part, using a voice recognition dictation system. Departure Departure: Impression: Primary Impression: Wound infection after surgery Disposition: HOME, SELF-CARE (at 1725) Condition: IMPROVED Referrals: OZIEL GUTIERREZ MD (PCP) Patient Instructions: Wound Infection Additional Instructions: Change the dressing twice a day and as needed Follow-up with your surgeon in 2 or 3 days Return to ER if not getting better Stop Augmentin Scripts Cephalexin (KEFLEX) 500 Mg Capsule 2 CAP PO Q12HR for infection, #28 CAP Prov: SAMINA SAMPSON MD 08/10/18 Sulfamethoxazole/Trimethoprim (BACTRIM DS TABLET) 1 Each Tablet 1 TAB PO BID for infection, #14 TAB Prov: SAMINA SAMPSON MD 08/10/18 SAMINA SAMPSON MD Aug 10, 2018 17:26
[2018-08-10 17:31] VITALS: BP 120/78
== END 2018-08-10 17:30 | disposition home or self-care (01) ==
LOC: ER 16:50
DX: T81.43XA Infection following a procedure, organ and space surgical site, initial encounter (principal); F41.9 Anxiety disorder, unspecified; J45.909 Unspecified asthma, uncomplicated; M79.7 Fibromyalgia; I10 Essential (primary) hypertension; F31.9 Bipolar disorder, unspecified; F17.200 Nicotine dependence, unspecified, uncomplicated; Z98.890 Other specified postprocedural states; F10.20 Alcohol dependence, uncomplicated; Z86.711 Personal history of pulmonary embolism; Z86.718 Personal history of other venous thrombosis and embolism; Z88.5 Allergy status to narcotic agent; Y90.9 Presence of alcohol in blood, level not specified
CPT/HCPCS: 87070; 99283

== ENCOUNTER 2018-09-28 07:24 | Inpatient (IN) | payer BC ==
[~2018-09-28] VITALS: Ht 157.5 cm; Wt 61.8 kg
[~2018-09-28 07:24] MED LIST changes: +CEPH-264 PO; +TRAZ-120 PO; -TRAZ-85 PO
[2018-09-28] MEDS ORDERED: IPRATRPIUM/ALBUTEROL 0.5/2.5MG 3 ML NEBU. ONE (07:28)
[2018-09-28] MEDS ORDERED: IPRATRPIUM/ALBUTEROL 0.5/2.5MG 3 ML NEBU. NEB ONE (07:30)
[2018-09-28] MEDS ORDERED: IV NORMAL SALINE 1,000ML 1,000 ML IV SCH (07:34)
[2018-09-28 07:54] LABS: BASO # 0.1 x10^3/uL (0.0-0.2); BASO % 2 % (0-3); EOS # 1.2 x10^3/uL (0.0-0.7); EOS % 22 % (0-3); HEMATOCRIT 38.7 % (36.0-47.0); HEMOGLOBIN 12.7 g/dL (12.0-15.5); LYMPH % 19 % (24-48); MEAN CORPUSCULAR HEMOGLOBIN 30 pg (25-35); MEAN CORPUSCULAR HGB CONC 33 g/dL (31-37); MEAN CORPUSCULAR VOLUME 92 fL (79-100); MONO # 0.3 x10^3/uL (0.0-1.1); MONO % 5 % (0-9); NEUT # 2.7 x10^3uL (1.8-7.7); NEUT % 52 % (31-73); PLATELET COUNT 304 x10^3/uL (140-400); RED BLOOD COUNT 4.22 x10^6/uL (3.50-5.40); RED CELL DISTRIBUTION WIDTH 18.8 % (11.5-14.5); WHITE BLOOD COUNT 5.2 x10^3/uL (4.0-11.0)
[2018-09-28] MEDS ORDERED: methylPREDNISolone SOD SUCC PF 125 MG/2 ML VIAL. IV ONE (08:00)
[2018-09-28 08:02] LABS: BGAS PH 7.33 (7.35-7.45)
[2018-09-28 08:12] LABS: INFLUENZA A PATIENT NEGATIVE (NEGATIVE); INFLUENZA B PATIENT NEGATIVE (NEGATIVE)
[2018-09-28 08:19] LABS: ALBUMIN 3.2 g/dL (3.4-5.0); ALBUMIN/GLOBULIN RATIO 0.9 (1.0-1.7); CALCIUM 8.8 mg/dL (8.5-10.1); CREATININE 0.6 mg/dL (0.6-1.0); GFR 102.7; POTASSIUM 4.4 mmol/L (3.5-5.1); TOTAL BILIRUBIN 0.3 mg/dL (0.2-1.0); TOTAL PROTEIN 6.7 g/dL (6.4-8.2)
--- NOTE | 2018-09-28 08:46 | RAD ---
Left lower extremity venous doppler ultrasound History: Left leg swelling, history of right DVT Comparison: August 18, 2017 Findings: Multiple grayscale, color, and duplex spectral analysis sonographic images were acquired of the left lower extremity veins to evaluate for the presence of DVT. There is normal phasicity. Normal compression, color-flow, and augmentation is demonstrated from the left common femoral to the popliteal veins. There is normal color flow of the proximal greater saphenous and profunda femoris veins. There is normal color flow of segments of the calf veins. There are 2 adjacent nonspecific left popliteal fossa fluid collections, one up to 3.7 cm and other up to 2.7 cm, at least one of the demonstrated previously measuring about 3.2 cm. Impression: 1. There is no evidence of deep venous thrombosis from the left common femoral to popliteal veins. 2. There are 2 nonspecific left popliteal fossa fluid collections. Electronically signed by: Devan Ramirez MD (09/28/2018 8:43 AM) [email or web address]
--- NOTE | 2018-09-28 08:47 | RAD ---
CHEST PA LATERAL History: Shortness of breath, dizziness, cough for weeks, history of asthma, smoker Comparison: January 15, 2018 Findings: 2 views of the chest are submitted. There is no pleural fluid or pneumothorax. There is no lobar consolidation. Heart size is stable. Impression: 1. There is no lobar consolidation. CT would be more sensitive for detection of pulmonary nodules. Electronically signed by: Devan Ramirez MD (09/28/2018 8:44 AM) [facility]
[2018-09-28] MEDS ORDERED: LISINOPRIL 10 MG TABLET PO ONE (09:00)
--- NOTE | 2018-09-28 09:00 | PHYS DOC ---
Past History Past Medical History: Alcoholism, Anxiety, Asthma, Bipolar, DVT, Fibromyalgia, Hypertension Additional Past Medical Histor: DVT and PE in 07/11/2017 Past Surgical History: Tonsillectomy, Other Smoking: Less than 1pk/day Alcohol Use: Heavy Additional Alcohol Information: yesterday 2 oz Drug Use: None Adult General Chief Complaint Chief Complaint: DYSPNEA/RESPIRATOY DISTRESS [facility] HPI Patient is a 58 year old female who presents with complaining of shortness of breath and cough. Has had history of COPD and currently smoking and complaining of intermittent episodes of shortness of breath and productive cough with yellow sputum for the last one month that gradually getting worse. Patient denies fever and chills, chest pain, nausea and vomiting, sick contact. Patient complaining of swelling of left leg for the last 1 week and his states she had right lower extremity DVT and PE and used to take Xarelto but because of financial problems does not take Xarelto anymore. Patient had O2 sats of 80% at arrival to ER. Review of Systems Review of Systems Constitutional: Denies fever or chills [] Eyes: Denies change in visual acuity, redness, or eye pain [] HENT: Denies nasal congestion or sore throat [] Respiratory: Reports cough and shortness of breath Cardiovascular: No additional information not addressed in HPI [] GI: Denies abdominal pain, nausea, vomiting, bloody stools or diarrhea [] : Denies dysuria or hematuria [] Musculoskeletal: Denies back pain or joint pain [] Integument: Denies rash or skin lesions [] Neurologic: Denies headache, focal weakness or sensory changes [] Endocrine: Denies polyuria or polydipsia [] All other systems were reviewed and found to be within normal limits, except as documented in this note. Current Medications Current Medications Current Medications Medications (Trade) Dose Ordered Sig/Yanique Start Time Stop Time Status Last Admin Dose Admin Albuterol/ Ipratropium (Duoneb) 3 ml STK-MED ONCE 09/28/18 07:28 09/28/18 07:29 DC Ceftriaxone Sodium 1 gm/ Sodium Chloride 50 ml @ 100 mls/hr 1X ONCE 09/28/18 09:00 09/28/18 09:29 Lisinopril (Prinivil) 20 mg 1X ONCE 09/28/18 09:00 09/28/18 09:01 Methylprednisolone Sodium Succinate (SOLU-Medrol 125MG VIAL) 125 mg 1X ONCE 09/28/18 08:00 09/28/18 08:01 DC 09/28/18 07:46 125 MG Sodium Chloride 1,000 ml @ 1,000 mls/hr Q1H 09/28/18 07:34 09/28/18 08:33 DC 09/28/18 07:46 1,000 MLS/HR Allergies Allergies Allergies Coded Allergies Type Severity Reaction Last Updated Verified codeine Allergy Mild Nausea and Vomiting 01/15/18 No Physical Exam Physical Exam Constitutional: Well nourished, moderate distress, non-toxic appearance. [] HENT: Normocephalic, atraumatic, oropharynx moist, no oral exudates, nose normal. [] Eyes: PERRLA, EOMI, conjunctiva normal, no discharge. [] Neck: Normal range of motion, no tenderness, supple, no stridor. [] Cardiovascular:Heart rate regular rhythm, no murmur [] Lungs & Thorax: Respiratory distress with tachypnea and decrease of air movement Abdomen: Bowel sounds normal, soft, no tenderness, no masses, no pulsatile masses. [] Skin: Warm, dry, no erythema, no rash. [] Back: No tenderness, no CVA tenderness. [] Extremities: No tenderness, no cyanosis, no clubbing, ROM intact, left lower extremity with 1+ edema without tenderness[] Neurologic: Alert and oriented X 3, normal motor function, normal sensory function, no focal deficits noted. [] Psychologic: Affect normal, judgement normal, mood normal. [] Current Patient Data Vital Signs Vital Signs Date Time Temp Pulse Resp B/P (MAP) Pulse Ox O2 Delivery O2 Flow Rate FiO2 09/28/18 08:39 93 18 193/103 (133) 93 Nasal Cannula 4.0 09/28/18 07:25 97.2 Lab Results Laboratory Tests Test 09/28/18 07:33 09/28/18 07:39 09/28/18 07:40 White Blood Count 5.2 x10^3/uL (4.0-11.0) Red Blood Count 4.22 x10^6/uL (3.50-5.40) Hemoglobin 12.7 g/dL (12.0-15.5) Hematocrit 38.7 % (36.0-47.0) Mean Corpuscular Volume 92 fL (79-100) Mean Corpuscular Hemoglobin 30 pg (25-35) Mean Corpuscular Hemoglobin Concent 33 g/dL (31-37) Red Cell Distribution Width 18.8 % (11.5-14.5) H Platelet Count 304 x10^3/uL (140-400) Neutrophils (%) (Auto) 52 % (31-73) Lymphocytes (%) (Auto) 19 % (24-48) L Monocytes (%) (Auto) 5 % (0-9) Eosinophils (%) (Auto) 22 % (0-3) H Basophils (%) (Auto) 2 % (0-3) Neutrophils # (Auto) 2.7 x10^3uL (1.8-7.7) Lymphocytes # (Auto) 1.0 x10^3/uL (1.0-4.8) Monocytes # (Auto) 0.3 x10^3/uL (0.0-1.1) Eosinophils # (Auto) 1.2 x10^3/uL (0.0-0.7) H Basophils # (Auto) 0.1 x10^3/uL (0.0-0.2) Sodium Level 141 mmol/L (136-145) Potassium Level 4.4 mmol/L (3.5-5.1) Chloride Level 104 mmol/L (98-107) Carbon Dioxide Level 29 mmol/L (21-32) Anion Gap 8 (6-14) Blood Urea Nitrogen 9 mg/dL (7-20) Creatinine 0.6 mg/dL (0.6-1.0) Estimated GFR (Cockcroft-Gault) 102.7 BUN/Creatinine Ratio 15 (6-20) Glucose Level 115 mg/dL (70-99) H Lactic Acid Level 1.1 mmol/L (0.4-2.0) Calcium Level 8.8 mg/dL (8.5-10.1) Total Bilirubin 0.3 mg/dL (0.2-1.0) Aspartate Amino Transferase (AST) 29 U/L (15-37) Alanine Aminotransferase (ALT) 22 U/L (14-59) Alkaline Phosphatase 85 U/L (46-116) Creatine Kinase 178 U/L (26-192) Creatine Kinase MB (Mass) 4.1 ng/mL (0.0-3.6) H Creatine Kinase MB Relative Index 2.3 % (0-4) Troponin I Quantitative 0.017 ng/mL (0-0.055) EZ-Ren-B-Type Natriuretic Peptide 1029 pg/mL (0-124) H Total Protein 6.7 g/dL (6.4-8.2) Albumin 3.2 g/dL (3.4-5.0) L Albumin/Globulin Ratio 0.9 (1.0-1.7) L Influenza Type A (Rapid) Negative (NEGATIVE) Influenza Type B (Rapid) Negative (NEGATIVE) Blood pH 7.33 (7.35-7.45) L Blood Gas PCO2 50 mmHg (35-45) H Blood Gas PO2 62 mmHg (80-100) L Blood Gas HCO3 26 mmol/L (22-26) Arterial Bld O2 Saturation (Calc) 89 % (92-99) L FiO2 32 % EKG EKG [] Radiology/Procedures Radiology/Procedures [address] [address] IMAGING REPORT Signed PATIENT: LUPILLO STWEART ACCOUNT: [id number] : 1960 LOCATION: ER AGE: 58 SEX: F EXAM STATUS: REG ER ORD. PHYSICIAN: SAMINA SAMPSON MD REASON: SOB PROCEDURE: CHEST PA & LATERAL CHEST PA LATERAL History: Shortness of breath, dizziness, cough for weeks, history of asthma, smoker Comparison: January 15, 2018 Findings: 2 views of the chest are submitted. There is no pleural fluid or pneumothorax. There is no lobar consolidation. Heart size is stable. Impression: 1. There is no lobar consolidation. CT would be more sensitive for detection of pulmonary nodules. Electronically signed by: Bianca Nicholas MD (09/28/2018 8:44 AM) [id number] DICTATED AND SIGNED BY: BIANCA NICHOLAS MD DATE: 09/28/18 0843 CC: SAMINA SAMPSON MD; OZIEL GUTIERREZ MD ~ [address] [address] IMAGING REPORT Signed PATIENT: LUPILLO STEWART ACCOUNT: [id number] : 1960 LOCATION: ER AGE: 58 SEX: F EXAM STATUS: REG ER ORD. PHYSICIAN: SAMINA SAMPSON MD REASON: edema lt leg ,hx of dvt in the right PROCEDURE: VENOUS LOWER EXTREMITY LEFT Left lower extremity venous doppler ultrasound History: Left leg swelling, history of right DVT Comparison: August 18, 2017 Findings: Multiple grayscale, color, and duplex spectral analysis sonographic images were acquired of the left lower extremity veins to evaluate for the presence of DVT. There is normal phasicity. Normal compression, color-flow, and augmentation is demonstrated from the left common femoral to the popliteal veins. There is normal color flow of the proximal greater saphenous and profunda femoris veins. There is normal color flow of segments of the calf veins. There are 2 adjacent nonspecific left popliteal fossa fluid collections, one up to 3.7 cm and other up to 2.7 cm, at least one of the demonstrated previously measuring about 3.2 cm. Impression: 1. There is no evidence of deep venous thrombosis from the left common femoral to popliteal veins. 2. There are 2 nonspecific left popliteal fossa fluid collections. Electronically signed by: Bianca Nicholas MD (09/28/2018 8:43 AM) [id number] DICTATED AND SIGNED BY: BIANCA NICHOLAS MD DATE: 09/28/18 0840 CC: SAMINA SAMPSON MD; OZIEL GUTIERREZ MD ~ Course & Med Decision Making Course & Med Decision Making Pertinent Labs and Imaging studies reviewed. (See chart for details) Evaluation of patient in ER showed 58-year-old female patient with history of COPD and currently smoking presented to ER with respiratory distress and O2 sat of 80% at room air. Patient treated with DuoNeb, Solu-Medrol, oxygen and IV fluid and his O2 sat increased to 93% at 3 L of oxygen. Chest x-ray and labs was unremarkable. Patient has history of hypertension and didn't take her medication today with blood pressure of 180s that was treated with lisinopril. Patient had history of PE and currently doesn't take anticoagulation. 1 dose of Lovenox was given and patient treated with antibiotic and IV fluid. Dr. Ramirez accepted admission. Dragon Disclaimer Dragon Disclaimer This electronic medical record was generated, in whole or in part, using a voice recognition dictation system. Departure Departure: Impression: Primary Impression: Acute respiratory distress Additional Impressions: COPD exacerbation Tobacco abuse Tobacco abuse counseling Uncontrolled hypertension History of pulmonary embolism CHF (congestive heart failure) Disposition: ADMITTED INPATIENT (At 0856) Admitting Physician: Jacky Ramirez (Accepted admission at 0855) Condition: IMPROVED Referrals: OZIEL GUTIERREZ MD (PCP) Critical Care Time Critical care time was 75 minutes exclusive of procedures. Problem Qualifiers Additional Impressions: CHF (congestive heart failure) Heart failure chronicity: unspecified SAMINA SAMPSON MD Sep 28, 2018 09:00
[2018-09-28] MEDS ORDERED: IV NORMAL SALINE 50ML 50 ML ONE (09:03)
[2018-09-28] MEDS ORDERED: cefTRIAXone SODIUM 1 GM VIAL ONE (09:03)
[2018-09-28] MEDS ORDERED: ENOXAPARIN ** NOTE DOSE ** SYRINGE SQ ONE (09:15)
[2018-09-28 09:44] LABS: BACTERIA,URINE 0 /HPF (0-FEW); BILIRUBIN,URINE NEG (NEG); CLARITY,URINE CLEAR; COLOR,URINE STRAW; GLUCOSE,URINE NEG (NEG); NITRITE,URINE NEG (NEG); RBC,URINE 0 /HPF (0-2); SQUAMOUS EPITHELIAL CELL,UR OCC /LPF; UROBILINOGEN,URINE 0.2 mg/dL (0.2 mg/dL); WBC,URINE 0 /HPF (0-4)
[2018-09-28 09:55] VITALS: BP 186/105
[2018-09-28] MEDS: IV NORMAL SALINE 1,000ML 1,000 ML IV SCH ×2 (10:22→21:41)
[2018-09-28] MEDS ORDERED: PREG200C PO (10:36)
[2018-09-28] MEDS ORDERED: CYCL-331 PO (10:36)
[2018-09-28] MEDS ORDERED: ACETAMINOPHEN 325 MG TABLET PO PRN (14:30)
[2018-09-28] MEDS ORDERED: ALBUTEROL SULFATE 2.5 MG/3 ML NEBU. NEB PRN (14:30)
[2018-09-28] MEDS: CYCLOBENZAPRINE 10 MG TABLET. PO SCH ×2 (14:45→20:34)
[2018-09-28] MEDS ORDERED: AZITHROMYCIN 250 MG TABLET. PO ONE (14:45)
[2018-09-28] MEDS: methylPREDNISolone SOD SUCC PF 40 MG/ML VIAL. IV SCH ×2 (14:54→21:41)
[2018-09-28 15:05] VITALS: BP 164/97
[2018-09-28] MEDS: IPRATRPIUM/ALBUTEROL 0.5/2.5MG 3 ML NEBU. NEB SCH ×2 (15:12→20:39)
[2018-09-28] MEDS ORDERED: IPRATRPIUM/ALBUTEROL 0.5/2.5MG 3 ML NEBU. NEB SCH (16:00)
--- NOTE | 2018-09-28 16:03 | HP ---
ADMIT DATE: 09/28/2018 HISTORY OF PRESENT ILLNESS: The patient is 58-year-old female patient, who came to the Emergency Room, complaining of shortness of breath, cough with scanty yellowish sputum that has been going on for almost a month. Her symptoms have worsened in particularly at last night. She had had recurrent bouts of cough and worsening shortness of breath and therefore, she decided to come to the Emergency Room for further evaluation. She was evaluated by the Emergency Room physician and apparently, she has had lab work that unfortunate I am unable to get access to an x-ray, which did not show any evidence of pneumonia and was admitted with acute hypoxic respiratory failure and chronic obstructive pulmonary disease exacerbation. She was given Solu-Medrol, IV antibiotic and nebulized treatment, was admitted for further evaluation and treatment. PAST MEDICAL HISTORY: Significant for COPD, hypertension, hypothyroidism, psoriatic arthritis, history of DVT and PE. PAST SURGICAL HISTORY: Significant for tonsillectomy, resection of benign tumor from her colon and IVC filter placement. ALLERGIES: She is allergic to CODEINE. MEDICATIONS: She is currently on ProAir 1 puff every 4 hours. She is on alprazolam 1 tablet daily at bedtime. She is on trazodone 1-1/2 tablet by mouth at bedtime. She is on cyclobenzaprine take one tablet 3 times a day, levothyroxine 1 tablet by mouth once a day, duloxetine 60 mg take 1 capsule at night once a day, lisinopril/hydrochlorothiazide 20/12.5 take once a day. She is also on Lyrica 200 mg capsule take 1 capsule by mouth twice a day. FAMILY HISTORY: She has one brother younger and has childhood asthma. Her father is alive at age of 79 and healthy. Her mother is still alive at age of 76 and she takes heart medicine, but she can be more specific. SOCIAL HISTORY: She lives with her partner. She smokes 5 to 6 pack of cigarettes a day. Since she developed a pulmonary embolism in 2017, she drinks about 20 ounces of alcohol weekly. 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 REVIEW OF SYSTEMS: The patient denied any blurring of vision, cataract, glaucoma or macular degeneration. Denied any earache, tinnitus or sensorineural deafness. Denied any nosebleeds, stuffy nose or postnasal drip. Denied any sore throat, sore tongue, toothache, hoarseness of voice or difficulty swallowing. No nausea, vomiting, diarrhea or constipation. Denied any hematemesis, melena or hematochezia. Denied any dysuria, frequency or hematuria. Denied any chest pain. Did complain of shortness of breath, cough, but denied any orthopnea, paroxysmal nocturnal dyspnea. PHYSICAL EXAMINATION: GENERAL: On examining her, she was resting slightly propped up in bed, in no apparent respiratory distress. No pallor, jaundice, cyanosis, or thyromegaly. No jugular venous distension. No limb edema. VITAL SIGNS: Her heart rate was 88, blood pressure was 183/110 and her oxygen saturation was 91% and she did receive 10 mg of lisinopril. HEAD, EYES, EARS, NOSE AND THROAT: Showed normocephalic, atraumatic. NECK: Supple. HEART: Showed normal first and second sounds. No gallop, rub or murmur. CHEST: Clear to auscultation. No crepitation or rhonchi. ABDOMEN: Slightly distended, soft, nontender. No guarding or rigidity. No organomegaly. All hernial orifices intact. Bowel sounds normal. NEUROLOGIC: She was awake, alert, responding appropriately. All cranial nerves intact. EXTREMITIES: She moves extremities without difficulty. She ambulates without assistance or assistive devices, ASSESSMENT AND PLAN: The patient was admitted with acute hypoxic respiratory failure as well as chronic obstructive pulmonary disease exacerbation. We will continue with IV antibiotic, IV Solu-Medrol as well as nebulized albuterol and Atrovent. Continue with all her other medication and follow her closely. DOROTHEA COLON MD DR: EFREN/mathew JOB#: [id number] / [id number]
[2018-09-28] MEDS: NICOTINE 21MG PATCH. TD SCH (17:13)
[2018-09-28] MEDS: PREGABALIN 50 MG CAPSULE PO SCH (17:13)
[2018-09-28 19:10] VITALS: BP 148/81
[2018-09-28] MEDS ORDERED: NON FORMULARY ITEM (Budesonide 0.5 MG) NEB SCH (20:00)
[2018-09-28] MEDS: MONTELUKAST 10 MG TABLET. PO SCH (20:34)
[2018-09-28] MEDS: BUDESONIDE 0.5 MG/2 ML NEBU NEB SCH (20:39)
[2018-09-28] MEDS ORDERED: traZODone 50 MG TABLET. PO SCH (21:00)
[2018-09-28] MEDS ORDERED: MOMETASONE IH SCH (21:00)
[2018-09-28] MEDS ORDERED: FORMOTEROL IH SCH (21:00)
[2018-09-28] MEDS ORDERED: ALPRAZolam 0.5 MG TABLET PO SCH (22:00)
[2018-09-28] MEDS: traZODone 100 MG TABLET. PO SCH (22:00)
[2018-09-28 22:18] VITALS: BP 135/76
[2018-09-29] MEDS: IPRATRPIUM/ALBUTEROL 0.5/2.5MG 3 ML NEBU. NEB SCH ×4 (04:22→20:33)
[2018-09-29 04:59] VITALS: BP 122/86
[2018-09-29] MEDS: LEVOTHYROXINE 112 MCG TABLET PO SCH (05:53)
[2018-09-29] MEDS: methylPREDNISolone SOD SUCC PF 40 MG/ML VIAL. IV SCH ×3 (05:53→20:17)
[2018-09-29 06:40] LABS: ALBUMIN 2.7 g/dL (3.4-5.0); ALBUMIN/GLOBULIN RATIO 0.8 (1.0-1.7); CALCIUM 8.7 mg/dL (8.5-10.1); CREATININE 0.7 mg/dL (0.6-1.0); GFR 85.9; POTASSIUM 3.5 mmol/L (3.5-5.1); TOTAL BILIRUBIN 0.2 mg/dL (0.2-1.0)
[2018-09-29 06:48] LABS: HEMATOCRIT 35.7 % (36.0-47.0); HEMOGLOBIN 11.7 g/dL (12.0-15.5); RED BLOOD COUNT 3.94 x10^6/uL (3.50-5.40); RED CELL DISTRIBUTION WIDTH 18.6 % (11.5-14.5); WHITE BLOOD COUNT 3.8 x10^3/uL (4.0-11.0)
[2018-09-29] MEDS: BUDESONIDE 0.5 MG/2 ML NEBU NEB SCH ×2 (08:00→20:33)
[2018-09-29] MEDS: IV NORMAL SALINE 1,000ML 1,000 ML IV SCH (08:01)
[2018-09-29] MEDS: hydroCHLOROthiazide 12.5 MG CAPSULE PO SCH (08:04)
[2018-09-29] MEDS: NICOTINE 21MG PATCH. TD SCH (08:05)
[2018-09-29] MEDS: AZITHROMYCIN 250 MG TABLET. PO SCH (08:05)
[2018-09-29] MEDS: LISINOPRIL 20 MG TABLET PO SCH (08:05)
[2018-09-29] MEDS: DULoxetine HCL 60 MG CAPSULE.DR PO SCH (08:06)
[2018-09-29] MEDS: PREGABALIN 50 MG CAPSULE PO SCH ×2 (08:06→20:16)
[2018-09-29] MEDS ORDERED: [UNRECOGNIZED DRUG - OTHER] PO SCH (09:00)
[2018-09-29] MEDS ORDERED: ALPRAZolam 0.5 MG TABLET PO SCH ×2 (09:00→21:00)
[2018-09-29] MEDS: CYCLOBENZAPRINE 10 MG TABLET. PO SCH ×3 (09:00→20:17)
[2018-09-29] MEDS ORDERED: HYDROCHLOROTHIAZIDE PO SCH (09:00)
[2018-09-29] MEDS ORDERED: LISINOPRIL PO SCH (09:00)
[2018-09-29 11:18] VITALS: BP 165/85
[2018-09-29] MEDS ORDERED: ACETAMINOPHEN 325 MG TABLET PO ONE (13:45)
[2018-09-29 15:22] VITALS: BP 154/88
--- NOTE | 2018-09-29 18:49 | PN ---
DATE: SUBJECTIVE: The patient is sitting comfortably in her chair, in no apparent distress. She continued to have cough with scanty sputum and although her wheezing is much improved. Her oxygen saturation was 98% on 2 liters of oxygen. We did actually a 6-minute walk and her oxygen saturation remained stable at 93%. PHYSICAL EXAMINATION: GENERAL: When I examined her, she looked well and was clearly in no apparent respiratory distress. No pallor, jaundice, cyanosis, or thyromegaly. No jugular venous distension. No lower limb edema. VITAL SIGNS: Her heart rate was 127, blood pressure was 165/85, temperature was 98.7, respiratory rate was 24 and oxygen saturation was 95% on room air. HEENT: Examination of the head, eyes, ears, nose and throat showed normocephalic, atraumatic. NECK: Supple. HEART: Showed normal first and second heart sounds with no gallop, rube or murmur. CHEST: Shows central trachea, equally reduced expansion, air entry vesicular sounds with very few scattered rhonchi. No crepitation. ABDOMEN: Distended, soft, nontender. NEUROLOGIC: She is awake, alert, responding appropriately. Her cranial nerves are intact. EXTREMITIES: She moves extremities without difficulty. She ambulates without assistance or assistive devices. LABORATORY DATA: Her lab work showed her white cell count of ____, hemoglobin 11, hematocrit 35, MCV 91 and platelet count 304,000. Serum sodium was 143, potassium 3.5, chloride 106, bicarbonate 26, anion gap of 11, BUN 7, creatinine 0.7. Estimated GFR was 85 mL per minute. Her glucose was 168, calcium was 8.7. Total bilirubin, AST, ALT, alkaline phosphatase were normal. Total protein was 6, albumin was 2.7. Her influenza A and B were negative. Her blood cultures are so far negative. ASSESSMENT: 1. Acute hypoxic respiratory failure. 2. Chronic obstructive pulmonary disease exacerbation. 3. Bronchopneumonia. 4. Hypertension. 5. Hypothyroidism. 6. Psoriatic arthritis. 7. Deep venous thrombosis and pulmonary embolism. PLAN: Plan is to continue with IV Solu-Medrol, continue with IV antibiotic for the time being. We will evaluate her tomorrow and if her pain is improved, we can discharge her on a tapering course of steroids and oral antibiotic as well as inhalers. DOROTHEA COLON MD DR: Chris JOB#: [id number] / [id number]
[2018-09-29 19:15] VITALS: BP 130/72
[2018-09-29] MEDS: LACTOBACILLUS RHAMNOSUS GG 1 CAPSULE. PO SCH (20:15)
[2018-09-29] MEDS: MONTELUKAST 10 MG TABLET. PO SCH (20:17)
[2018-09-29] MEDS: traZODone 100 MG TABLET. PO SCH (20:17)
[2018-09-29 22:57] VITALS: BP 144/85
[2018-09-30] MEDS: IPRATRPIUM/ALBUTEROL 0.5/2.5MG 3 ML NEBU. NEB SCH ×2 (04:41→10:24)
[2018-09-30 05:43] VITALS: BP 153/84
[2018-09-30] MEDS: methylPREDNISolone SOD SUCC PF 40 MG/ML VIAL. IV SCH (05:58)
[2018-09-30] MEDS: LEVOTHYROXINE 112 MCG TABLET PO SCH (05:58)
[2018-09-30] MEDS: LISINOPRIL 20 MG TABLET PO SCH (08:39)
[2018-09-30] MEDS: hydroCHLOROthiazide 12.5 MG CAPSULE PO SCH (08:39)
[2018-09-30] MEDS: LACTOBACILLUS RHAMNOSUS GG 1 CAPSULE. PO SCH (08:40)
[2018-09-30] MEDS: NICOTINE 21MG PATCH. TD SCH (08:40)
[2018-09-30] MEDS: AZITHROMYCIN 250 MG TABLET. PO SCH (08:40)
[2018-09-30] MEDS: CYCLOBENZAPRINE 10 MG TABLET. PO SCH (08:40)
[2018-09-30] MEDS: DULoxetine HCL 60 MG CAPSULE.DR PO SCH (08:40)
[2018-09-30] MEDS: PREGABALIN 50 MG CAPSULE PO SCH (08:42)
[2018-09-30] MEDS: BUDESONIDE 0.5 MG/2 ML NEBU NEB SCH (10:24)
[2018-09-30] MEDS ORDERED: AZIT250T PO (10:24)
[2018-09-30] MEDS ORDERED: CEFP200T PO (10:24)
[2018-09-30 10:29] VITALS: BP 156/99
--- NOTE | 2018-09-30 12:30 | DS ---
DATE OF DISCHARGE: 09/30/2018 HOSPITAL COURSE: The patient is a 58-year-old female patient, who was admitted with increasing shortness of breath, cough that has been going on for almost a month that has worsened recently. She has also scanty yellowish sputum and she was evaluated in the Emergency Room, was found to be in acute hypoxic respiratory failure and chronic obstructive pulmonary disease exacerbation. She was started on IV Solu-Medrol, nebulized albuterol and Atrovent together with IV antibiotic, together with Mucinex and she did actually very well. On arrival to the Emergency Room her oxygen saturation was 80% on room air. Today oxygen saturation was 99% on room air and therefore a decision was made to discharge her home to continue with tapering course of steroids, continue with oral antibiotic and nebulized albuterol and Atrovent. PHYSICAL EXAMINATION: GENERAL: When I saw her this morning, she was sitting comfortably in her chair, in no apparent respiratory distress. No pallor, jaundice, cyanosis or thyromegaly. No jugular venous distention. No limb edema. VITAL SIGNS: Her heart rate was 96, blood pressure was 153/64, temperature was 98.4, respiratory rate was 18, and oxygen saturation 95%. HEAD, EYES, EARS, NOSE AND THROAT: Showed normocephalic, atraumatic. NECK: Supple. HEART: Showed normal first and second heart sounds. No gallop, rub or murmur. CHEST: Shows central trachea, equal bilateral expansion, air entry, vesicular sounds. No crepitation or rhonchi. ABDOMEN: Distended, soft, nontender. NEUROLOGIC: She was awake, alert, responding appropriately. All cranial nerves intact. She moves extremities without difficulty. She ambulates without assistance or assistive devices. Her intake was 3990, output was 1100. LABORATORY DATA: As of yesterday her white cell count was 3800, hemoglobin 11.7, hematocrit 35.7, MCV 91, and platelet count 304,000. Her chemistry showed a serum sodium 143, potassium 3.5, chloride 106, bicarbonate 26, anion gap of 11, BUN 7, creatinine 0.7, estimated GFR was 85 mL per minute. Her glucose 168, calcium was 8.7. Total bilirubin, AST, ALT, alkaline phosphatase were normal. Total protein 6, albumin 2.7. Urinalysis was unremarkable. Her pH was 7.33, pCO2 of 50, pO2 of 62, bicarbonate is 26, and oxygen saturation was only 89%. Her influenza A and B were negative. Her blood culture showed no growth. DISCHARGE MEDICATIONS: She was discharged home to continue on Zithromax 250 mg once a day for 7 days, cefpodoxime proxetil 200 mg twice a day for 7 days, tapering course of steroids in the form of prednisone 40 mg once a day for 3 days, 30 mg once a day for 3 days, 20 mg once a day for 3 days, and 10 mg once a day for 3 days; DuoNeb 0.5/2.5 mg and 3 mL by nebulizer 4 times a day and ProAir inhaler 2 puffs every 4 hours as needed. Should continue on her Tylenol 650 mg every 6 hours, alprazolam 1 mg daily for anxiety, Pulmicort 0.5 mg by nebulizer twice a day, cyclobenzaprine 10 mg 3 times a day, duloxetine 60 mg daily, levothyroxine sodium 112 mcg daily, lisinopril/hydrochlorothiazide 20/12.5 one tablet once a day and Dulera 100 mcg/5 mcg inhaler twice a day, pregabalin for Lyrica 200 mg twice a day and trazodone 50 mg at bedtime. FINAL DISCHARGE DIAGNOSES: 1. Acute hypoxic respiratory failure. 2. Chronic obstructive pulmonary disease exacerbation. 3. Questionable acute bronchitis versus bronchopneumonia. 4. Hypertension. 5. Hypothyroidism. 6. Fibromyalgia. DOROTHEA COLON MD DR: EFREN/mathew JOB#: [id number] / [id number]
== END 2018-09-30 11:30 | disposition home or self-care (01) | DRG 871 ==
LOC: ER 07:24 → 1 SOUTH 08:52
PROVIDERS: ADMIT Internal Medicine; ATTEND Internal Medicine
DX: A41.9 Sepsis, unspecified organism (principal); J18.0 Bronchopneumonia, unspecified organism; J96.01 Acute respiratory failure with hypoxia; J44.1 Chronic obstructive pulmonary disease with (acute) exacerbation; J44.0 Chronic obstructive pulmonary disease with (acute) lower respiratory infection; I50.9 Heart failure, unspecified; I11.0 Hypertensive heart disease with heart failure; L40.50 Arthropathic psoriasis, unspecified; F17.210 Nicotine dependence, cigarettes, uncomplicated; F41.9 Anxiety disorder, unspecified; F31.9 Bipolar disorder, unspecified; M79.7 Fibromyalgia; E03.9 Hypothyroidism, unspecified; J20.9 Acute bronchitis, unspecified; Z86.718 Personal history of other venous thrombosis and embolism; Z71.6 Tobacco abuse counseling; Z86.711 Personal history of pulmonary embolism; Z79.01 Long term (current) use of anticoagulants; Z88.5 Allergy status to narcotic agent; Z82.5 Family history of asthma and other chronic lower respiratory diseases
CPT/HCPCS: 36415; 71046; 80053; 81001; 82553; 82803; 83605; 83880; 84484; 85025; 85027; 87040; 87804; 93971; 94640; 99406; J0456; J0696; J1650; J2920; J2930; J7613; J7620; J7626; J7030

== ENCOUNTER → 2018-11-16 | Outpatient (CLI) | payer BC ==
[~2018-11-16] MED LIST changes: +AZIT250T PO; +CEFP200T PO; +CYCL-331 PO; +IOHEXOL 350 MG/ML 100 ML VIAL. IV ONE
--- NOTE | 2018-11-16 10:27 | RAD ---
CTA of the chest with contrast, 11/16/2018: HISTORY: Shortness of breath, elevated d-dimer, previous blood clots Multidetector CT imaging was performed following an IV bolus injection of iodinated contrast material. Multiplanar reconstructions were produced including coronal and sagittal MIP images. No filling defects are seen in the central pulmonary arteries to suggest acute emboli. There is a tiny linear opacity in the right lower lobe pulmonary artery which may represent a residual web in this patient with a history of previous pulmonary emboli. The thoracic aorta is of normal caliber. No mediastinal or hilar adenopathy is evident. A 3-4 mm nodule is noted posterior laterally in the right upper lobe on image 38 of series #4. It is somewhat elongated in configuration on the coronal view. A 3 mm nodule is present laterally in the left lower lobe on image 83 of series #4. These findings were not evident on the previous exam. A couple of tiny subpleural nodules are also noted in the right lower lobe on images 78 and 69 of series #4 and in the left lower lobe on image 70 of series #4. Subpleural nodules such as this often represent vascular structures or tiny lymph nodes. No dense pulmonary consolidation is seen. There is no evidence of pleural fluid. An inferior vena cava filter is noted in the infrarenal vena cava. IMPRESSION: 1. No CT evidence of acute pulmonary emboli. 2. Questionable tiny residual web in the right lower lobe pulmonary artery. 3. Tiny bilateral pulmonary nodules may be inflammatory, although a neoplastic etiology cannot be excluded. CT follow-up is suggested. Electronically signed by: Theodore Muse MD (11/16/2018 10:24 AM) [facility]
== END | disposition home or self-care (01) ==
LOC: CT 09:08
PROVIDERS: ATTEND Physician Assistant Medical
DX: R91.8 Other nonspecific abnormal finding of lung field (principal); R79.1 Abnormal coagulation profile; Z86.2 Personal history of diseases of the blood and blood-forming organs and certain disorders involving the immune mechanism
CPT/HCPCS: 71275; Q9967

== ENCOUNTER → 2019-01-05 | Outpatient (CLI) | payer BC ==
[~2019-01-05] MED LIST changes: -IOHEXOL 350 MG/ML 100 ML VIAL. IV ONE
--- NOTE | 2019-01-05 14:55 | RAD ---
EXAM: 1. LEFT ANKLE 3 VIEWS. 2. LEFT FOOT 3 VIEWS. HISTORY: Left foot and ankle pain after injury. COMPARISON: None. FINDINGS: A component of pes planus is suspected with moderate medial deviation of the metatarsals. No fractures are identified throughout the foot and ankle. The joint spaces and alignment of the ankle mortise are maintained. Midfoot osteoarthritis is moderate to severe. Interphalangeal osteoarthritis is moderate to severe along the third and fourth rays and mild elsewhere. Osteopenia is at least mild. There are moderate plantar and small posterior calcaneal spurs. IMPRESSION: 1. No fracture. 2. Mild pes planus with medial deviation of the metatarsals. Moderate to severe midfoot osteoarthritis. Electronically signed by: Anil Arcos MD (01/05/2019 2:52 PM) [facility]
== END | disposition home or self-care (01) ==
LOC: PMG 12:17
PROVIDERS: ATTEND Family Medicine
DX: M19.072 Primary osteoarthritis, left ankle and foot (principal); M85.872 Other specified disorders of bone density and structure, left ankle and foot; M77.32 Calcaneal spur, left foot; M21.42 Flat foot [pes planus] (acquired), left foot
CPT/HCPCS: 73610; 73630

== ENCOUNTER → 2019-06-08 | Outpatient (CLI) | payer BC ==
[~2019-06-08] MED LIST changes: -DULO60CA44 PO; +DULO60CA98 PO; -ETAN50DI2 SQ; +ETAN50SY SQ; +LISI1TAB19 PO; -LISI1TAB5 PO
--- NOTE | 2019-06-08 16:53 | RAD ---
EXAM: CHEST 2 VIEWS. HISTORY: Chest congestion. COMPARISON: 09/28/2018. FINDINGS: Frontal and lateral views of the chest are obtained. The lungs are expanded to the 11th posterior ribs. The hemidiaphragms are not clearly flattened. A triangular opacity in the right cardiophrenic angle is most likely an epicardial fat pad and appears stable. Mild blunting of the costophrenic angles may reflect hyperinflation rather than trace pleural effusions. There are no confluent infiltrates. There is no pneumothorax. The heart is not enlarged. There is a chronic healed fracture of the left proximal humerus. An inferior vena cava filter is noted. IMPRESSION: 1. Mild hyperinflation. Correlate for air trapping. No confluent infiltrates. Electronically signed by: Anil Arcos MD (06/08/2019 4:50 PM) [facility]
== END | disposition home or self-care (01) ==
LOC: PMG 15:56
PROVIDERS: ATTEND Registered Nurse
DX: R91.8 Other nonspecific abnormal finding of lung field (principal)
CPT/HCPCS: 71046

== ENCOUNTER → 2019-08-31 | Outpatient (CLI) | payer OTHER ==
[~2019-08-31] MED LIST changes: +AZIT250T6 PO; +BENZ100C PO
--- NOTE | 2019-08-31 12:53 | RAD ---
EXAM: Chest, 2 views. HISTORY: Chest pain. COMPARISON: 06/08/2019 FINDINGS: 2 views of the chest are obtained. There is no infiltrate, pleural effusion or pneumothorax. The heart is normal in size. IMPRESSION: No acute pulmonary finding. Electronically signed by: Martha Lam MD (08/31/2019 12:50 PM) [facility]
== END | disposition home or self-care (01) ==
LOC: PMG 12:03
PROVIDERS: ATTEND Registered Nurse
DX: R07.9 Chest pain, unspecified (principal)
CPT/HCPCS: 71046

== ENCOUNTER 2019-09-01 14:24 | Emergency (ER) | payer OTHER ==
[~2019-09-01] VITALS: Ht 157.5 cm; Wt 67.0 kg
[~2019-09-01 14:24] MED LIST changes: -AZIT250T6 PO; -BENZ100C PO
[2019-09-01] MEDS ORDERED: IV NORMAL SALINE 1,000ML 1,000 ML IV ONE (14:45)
[2019-09-01] MEDS ORDERED: IPRATRPIUM/ALBUTEROL 0.5/2.5MG 3 ML NEBU. NEB ONE (14:45)
--- NOTE | 2019-09-01 15:09 | PHYS DOC ---
Past History Past Medical History: Asthma, COPD Additional Past Medical Histor: DVT and PE in 07/11/2017 Past Surgical History: Other Additional Past Surgical Histo: COLON MASS REMOVAL Smoking: Less than 1pk/day Alcohol Use: None Drug Use: None Adult General Chief Complaint Chief Complaint: SHORTNESS OF BREATH HPI HPI 59-year-old female presents with a one month history of shortness of breath. She is a smoker. She recently went to her PCP and was diagnosed with pneumonia and placed on Levaquin and prednisone. Followed up in their office today and sent down to the Emergency Department due to a low oxygen saturation of 91%. In the ER she is saturating 97%. She denies any fever, hemoptysis, and chest pain. She reports mucus production with coughing. Her shortness of breath is worsened with walking. Reports continued smoking but decreased down to 4-7 cigarettes daily. Review of Systems Review of Systems Constitutional: Denies fever or chills Eyes: Denies redness or eye pain HENT: Denies nasal congestion or sore throat Respiratory: Reports productive cough and shortness of breath. Cardiovascular: Denies chest pain or palpitations GI: Denies abdominal pain, nausea, or vomiting : Denies dysuria or hematuria Musculoskeletal: Denies back pain or joint pain Integument: Denies rash or skin lesions Neurologic: Denies headache, focal weakness or sensory changes Complete systems were reviewed and found to be within normal limits, except as documented in this note. Current Medications Current Medications Current Medications Medications (Trade) Dose Ordered Sig/Yanique Start Time Stop Time Status Last Admin Dose Admin Albuterol/ Ipratropium (Duoneb) 3 ml 1X ONCE 09/01/19 14:45 09/01/19 14:50 DC Sodium Chloride 1,000 ml @ 1,000 mls/hr 1X ONCE 09/01/19 14:45 09/01/19 15:44 Allergies Allergies Allergies Coded Allergies Type Severity Reaction Last Updated Verified codeine Allergy Mild Nausea and Vomiting 01/15/18 No Physical Exam Physical Exam Constitutional: Well developed, well nourished, no acute distress, non-toxic appearance HENT: Normocephalic, atraumatic, oropharynx moist Eyes: Conjunctiva normal, no discharge Neck: Normal range of motion, no tenderness, supple Cardiovascular: Heart rate normal, regular rhythm Lungs & Thorax: Bilateral breath sounds equal. Mild expiratory wheezing. Abdomen: Soft, no tenderness Skin: Warm, dry, no erythema, no rash Extremities: No tenderness, ROM intact, no edema, no calf tenderness Neurologic: Alert and oriented X 3, normal motor function, normal sensory function, no focal deficits noted Psychologic: Affect normal, judgement normal Current Patient Data Vital Signs Vital Signs Date Time Temp Pulse Resp B/P (MAP) Pulse Ox O2 Delivery O2 Flow Rate FiO2 09/01/19 14:48 97.9 99 22 158/95 (116) 96 Room Air EKG EKG EKG at 1518 shows normal sinus rhythm with a heart rate of 91 bpm. Some low voltage noted. Radiology/Procedures Radiology/Procedures [] Course & Med Decision Making Course & Med Decision Making Patient presents with shortness of breath. Previous two-view chest radiograph from 08/31/19 was reviewed and showed no evidence of pneumonia or consolidation. Labs obtained and posted to chart. EKG stable. Patient likely has a viral bronchitis. She requested discontinuation of her Levaquin due to potential side effects for tendon rupture. She was prescribed azithromycin, instructed to finish her steroid taper, use a humidifier to help with cough, and given Tessalon Perles for cough. Patient stable for discharge with outpatient follow-up with PCP. Discussed findings and plan with patient, who acknowledges understanding and agreement. Dragon Disclaimer Dragon Disclaimer This electronic medical record was generated, in whole or in part, using a voice recognition dictation system. Departure Departure: Impression: Primary Impression: Bronchitis Disposition: HOME, SELF-CARE Condition: STABLE Referrals: OZIEL GUTIERREZ MD (PCP) Patient Instructions: Acute Bronchitis, [id number] Additional Instructions: Discontinue previously prescribed Levaquin (levofloxacin). Use humidifier at night. Scripts Benzonatate (TESSALON PERLE) 100 Mg Capsule 1 CAP PO TID PRN for COUGH, #21 CAP Prov: MYRA KERN DO 09/01/19 Azithromycin (AZITHROMYCIN TABLET) 250 Mg Tablet 1 PKG PO UD for bronchitis, #6 TAB Take 2 tablets today and then one tablet every day thereafter for the next 4 days Prov: MYRA KERN DO 09/01/19 MYRA KERN DO Sep 01, 2019 15:09
[2019-09-01 15:32] LABS: BASO % 0 % (0-3); EOS # 0.1 x10^3/uL (0.0-0.7); EOS % 1 % (0-3); HEMATOCRIT 38.7 % (36.0-47.0); HEMOGLOBIN 12.8 g/dL (12.0-15.5); LYMPH # 0.5 x10^3/uL (1.0-4.8); LYMPH % 6 % (24-48); MEAN CORPUSCULAR HEMOGLOBIN 34 pg (25-35); MEAN CORPUSCULAR HGB CONC 33 g/dL (31-37); MEAN CORPUSCULAR VOLUME 101 fL (79-100); MONO # 0.2 x10^3/uL (0.0-1.1); MONO % 3 % (0-9); NEUT # 7.1 x10^3uL (1.8-7.7); NEUT % 90 % (31-73); PLATELET COUNT 327 x10^3/uL (140-400); RED BLOOD COUNT 3.83 x10^6/uL (3.50-5.40); RED CELL DISTRIBUTION WIDTH 14.1 % (11.5-14.5); WHITE BLOOD COUNT 7.9 x10^3/uL (4.0-11.0)
[2019-09-01 15:45] LABS: CALCIUM 8.9 mg/dL (8.5-10.1); CREATININE 0.6 mg/dL (0.6-1.0); GFR 102.3
--- NOTE | 2019-09-01 15:58 | EKG ---
[address] [address] Test Date: 2019-09-01 Test Time: 15:18:34 Pat Name: LUPILLO STEWART Department: Room: Gender: F Email Marketer: : 1960 Requested By: MYRA KERN Order Number: [id number] Reading MD: Measurements Intervals [place] Rate: 91 P: 66 AR: 166 QRS: 49 QRSD: 82 T: 62 QT: 334 QTc: 418 Interpretive Statements SINUS RHYTHM QRS(T) CONTOUR ABNORMALITY CONSIDER ANTEROLATERAL MYOCARDIAL DAMAGE POSSIBLY ABNORMAL ECG RI6.01 No previous ECG available for comparison
[2019-09-01 16:02] LABS: ALBUMIN 3.6 g/dL (3.4-5.0); TOTAL BILIRUBIN 0.4 mg/dL (0.2-1.0); TOTAL PROTEIN 7.1 g/dL (6.4-8.2)
[2019-09-01 16:13] VITALS: BP 160/99
[2019-09-01] MEDS ORDERED: AZIT250T6 PO (16:17)
[2019-09-01] MEDS ORDERED: BENZ100C PO (16:17)
== END 2019-09-01 16:21 | disposition home or self-care (01) ==
LOC: ER 14:24
DX: J44.9 Chronic obstructive pulmonary disease, unspecified (principal); F17.200 Nicotine dependence, unspecified, uncomplicated; Z86.718 Personal history of other venous thrombosis and embolism; Z86.711 Personal history of pulmonary embolism; Z88.5 Allergy status to narcotic agent
CPT/HCPCS: 36415; 80053; 82553; 83605; 83690; 83880; 84484; 85025; 93005; 94640; 99285; J7620; J7030

== ENCOUNTER 2020-05-31 17:33 | Emergency (ER) | payer OTHER ==
[~2020-05-31] VITALS: Ht 157.5 cm; Wt 67.0 kg
[~2020-05-31 17:33] MED LIST changes: +AZIT250T6 PO; +BENZ100C PO; -LISI1TAB19 PO; +LISI1TAB37 PO
[2020-05-31 17:52] VITALS: BP 102/58
--- NOTE | 2020-05-31 18:08 | PHYS DOC ---
Past History Past Medical History: Alcoholism, Asthma, Bronchitis, COPD Additional Past Medical Histor: DVT and PE in 07/11/2017 Past Surgical History: Other Additional Past Surgical Histo: COLON MASS REMOVAL Smoking: Less than 1pk/day Alcohol Use: Heavy Drug Use: None General Adult EDM: Chief Complaint: ALTERED MENTAL STATUS HPI: HPI: "..I just wanted to see if my blood pressure was okay.. and the oxygen sat. okay.. I don't want any labs or xrays.. I have been drinking.. but I drink every day...I see Dr. Gutierrez... I am fine now I want to be discharged..." Patient is a 60 year old Female who presents with above complaints. Advised she did not want labs, x-rays or further evaluation just want to see what her blood pressure was and if her sat was okay. Patient does admit to alcohol abuse but currently states she is not drunk. Patient follows with Dr. Gutierrez. Reviewed patient's past medical history. Patient states she had none of those complaints currently. Reviewed admission on 09/28/2018 with her. Patient insistent on being discharged. Review of Systems: Review of Systems: Constitutional: Denies fever or chills . Patient denies any physical complaints Eyes: Denies change in visual acuity HENT: Denies nasal congestion or sore throat Respiratory: Denies cough or shortness of breath Cardiovascular: Denies chest pain or edema GI: Denies abdominal pain, nausea, vomiting, bloody stools or diarrhea : Denies dysuria Musculoskeletal: Denies back pain or joint pain Integument: Denies rash Neurologic: Denies headache, focal weakness or sensory changes Endocrine: Denies polyuria or polydipsia Lymphatic: Denies swollen glands Psychiatric: Denies depression or anxiety Family History: Family History: Noncontributory to presentation. There is a family history of younger brother who had asthma her father lived age 79 mother lived to 76 and takes a heart medication Current Medications: Current Meds: See nursing for home meds Allergies: Allergies: Allergies Coded Allergies Type Severity Reaction Last Updated Verified codeine Allergy Mild Nausea and Vomiting 01/15/18 No Physical Exam: PE: Constitutional: , no acute distress, did have the smell of alcohol intoxicants on her breath HENT: Normocephalic, atraumatic, bilateral external ears normal, oropharynx moist, no oral exudates, nose normal. [] Eyes: PERRLA, EOMI, conjunctiva normal, no discharge. [] Neck: Normal range of motion, no tenderness, supple, no stridor. [] Cardiovascular:Heart rate regular rhythm, no murmur [] Lungs & Thorax: Bilateral breath sounds equal at apex with few scattered wheezes auscultation [] Abdomen: Bowel sounds normal, soft, no tenderness, no masses, no pulsatile ma sses. Old surgery scars Skin: Warm, dry, no erythema, no rash. [] Back: No tenderness, no CVA tenderness. [] Extremities: No tenderness, no cyanosis, no clubbing, ROM intact, no edema. No cording appreciated in legs Neurologic: Alert and oriented X 3, normal motor function, normal sensory functi on, no focal deficits noted. DTRs +2 patellar and brachial. Cycle Manager equal. No drift. Slightly wide gait. But amatory without problems. Psychologic: Affect normal, judgement normal, mood normal. [] Current Patient Data: Vital Signs: Vital Signs Date Time Temp Pulse Resp B/P (MAP) Pulse Ox O2 Delivery O2 Flow Rate FiO2 05/31/20 17:52 97.9 113 16 102/58 (73) 97 Room Air EKG: EKG: Patient declines EKG [] Radiology/Procedures: Radiology/Procedures: Patient declines any x-rays [] Heart Score: Risk Factors: Risk Factors: DM, Current or recent (<one month) smoker, HTN, HLP, family history of CAD, obesity. Risk Scores: Score 0 - 3: 2.5% MACE over next 6 weeks - Discharge Home Score 4 - 6: 20.3% MACE over next 6 weeks - Admit for Clinical Observation Score 7 - 10: 72.7% MACE over next 6 weeks - Early Invasive Strategies Course & Med Decision Making: Course & Med Decision Making Pertinent Labs and Imaging studies reviewed. (See chart for details) Reviewed patient's past medical history of any of those complaints were her current complaint however she denies. Patient stated she only wanted to have her blood pressure checked and saturations checked patient currently demanding discharge. Patient refused any labs. Patient states she will follow up with Dr. Gutierrez. Advised patient she could return at any time if she wished further evaluation. Impression: 1. Alcohol intoxication 2. History of chronic bronchitis 3. History of chronic tobacco use [] Magnolia Disclaimer: Magnolia Disclaimer: This electronic medical record was generated, in whole or in part, using a voice recognition dictation system. Departure Departure: Disposition: 01 DC HOME SELF CARE/HOMELESS Condition: STABLE Referrals: OZIEL GUTIERREZ MD (PCP) [facility] Disclaimer This chart was dictated in whole or in part using Voice Recognition software in a busy, high-work load, and often noisy Emergency Department environment. It may contain unintended and wholly unrecognized errors or omissions. RGOE RODRIGUEZ MD May 31, 2020 18:08
== END 2020-05-31 18:18 | disposition home or self-care (01) ==
LOC: ER 17:33
DX: F10.229 Alcohol dependence with intoxication, unspecified (principal); J44.9 Chronic obstructive pulmonary disease, unspecified; F17.200 Nicotine dependence, unspecified, uncomplicated; Z88.5 Allergy status to narcotic agent; Y90.9 Presence of alcohol in blood, level not specified
CPT/HCPCS: 99281

== ENCOUNTER 2020-11-24 18:55 | Emergency (ER) | payer OTHER ==
[~2020-11-24] VITALS: Ht 157.5 cm; Wt 65.3 kg
--- NOTE | 2020-11-24 19:27 | PHYS DOC ---
Past History Past Medical History: Alcoholism, Asthma, Bronchitis, Cancer, COPD Additional Past Medical Histor: DVT and PE in 07/11/2017 Past Surgical History: Other Additional Past Surgical Histo: COLON MASS REMOVAL Smoking: Less than 1pk/day Alcohol Use: Heavy Drug Use: None General Adult EDM: Chief Complaint: ABDOMINAL PAIN HPI: HPI: 60-year-old female presents with abdominal pain. Patient has a known umbilical hernia. She was feeling okay earlier today, but then started vomiting. She had one bowel movement. Since that time, she has had several more episodes of vomiting with no passing of gas or bowel movement. The area around her hernia is much more firm than usual. She is concerned about obstruction and/or incarceration. Her pain is currently 7 out of 10. She denies fever or chills. Review of Systems: Review of Systems: Constitutional: Denies fever or chills Eyes: Denies change in visual acuity HENT: Denies nasal congestion or sore throat Respiratory: Denies cough or shortness of breath Cardiovascular: Denies chest pain or edema GI: Periumbilical abdominal pain, nausea, vomiting. denies bloody stools or diarrhea : Denies dysuria Musculoskeletal: Denies back pain or joint pain Integument: Denies rash Neurologic: Denies headache, focal weakness or sensory changes Endocrine: Denies polyuria or polydipsia Lymphatic: Denies swollen glands Psychiatric: Denies depression or anxiety Current Medications: Current Meds: Current Medications Medications (Trade) Dose Ordered Sig/Yanique Start Time Stop Time Status Last Admin Dose Admin Morphine Sulfate (Morphine 4mg Syringe) 4 mg 1X ONCE 11/24/20 19:30 11/24/20 19:31 UNV Ondansetron HCl (Zofran) 4 mg 1X ONCE 11/24/20 19:30 11/24/20 19:31 UNV Sodium Chloride 1,000 ml @ 1,000 mls/hr 1X ONCE 11/24/20 19:30 11/24/20 20:29 UNV Allergies: Allergies: Allergies Coded Allergies Type Severity Reaction Last Updated Verified codeine Allergy Mild Nausea and Vomiting 11/24/20 No Physical Exam: PE: Constitutional: Well developed, well nourished, no acute distress, non-toxic appearance. [] HENT: Normocephalic, atraumatic, bilateral external ears normal, oropharynx moist, no oral exudates, nose normal. [] Eyes: PERRLA, EOMI, conjunctiva normal, no discharge. [] Neck: Normal range of motion, no tenderness, supple, no stridor. [] Cardiovascular:Heart rate regular rhythm, no murmur [] Lungs & Thorax: Bilateral breath sounds clear to auscultation [] Abdomen: Periumbilical hernia with firm mass to the left of the umbilicus. Tenderness with palpation. [] Skin: Warm, dry, no erythema, no rash. [] Back: No tenderness, no CVA tenderness. [] Extremities: No tenderness, no cyanosis, no clubbing, ROM intact, no edema. [] Neurologic: Alert and oriented X 3, normal motor function, normal sensory function, no focal deficits noted. [] Psychologic: Affect normal, judgement normal, mood normal. [] Current Patient Data: Vital Signs: Vital Signs Date Time Temp Pulse Resp B/P (MAP) Pulse Ox O2 Delivery O2 Flow Rate FiO2 11/24/20 19:04 98.6 111 20 146/73 (97) 94 Room Air EKG: EKG: [] Radiology/Procedures: Radiology/Procedures: [] Impressions: CT STUDY OF THE ABDOMEN AND PELVIS WITH CONTRAST Clinical indications: Hernia. Possible obstruction. TECHNIQUE: After IV infusion of 75 cc Omnipaque 300, helical CT scanning of the abdomen and pelvis was performed. GI contrast was not administered. This may decrease the sensitivity to detect GI tract pathology. PQRS COMPLIANCE STATEMENT One or more of the following individualized dose reduction techniques were utilized for this study: 1. Automated exposure control 2. Adjustment of the mA and/or kV according to patient size 3. Use of iterative reconstruction technique COMPARISON: July 21, 2018. FINDINGS: Small hepatic cyst is seen. Spleen is not enlarged. The pancreas and gallbladder are normal. No extra hepatic biliary ductal dilatation is seen. No adrenal mass is evident. Both kidneys are normal without hydronephrosis or hydroureter. No urinary tract stone is evident. IVC filter is apparent. No focal aneurysmal dilatation of the abdominal aorta is seen. No bulky abdominal or pelvic lymphadenopathy is seen. Urinary bladder is distended and urinary bladder wall is smooth. No uterine mass is evident. No dominant ovarian cyst or mass is seen. There is a large anterior abdominal wall hernia located at the level of the umbilicus. It measures 13 cm transversely and 12 cm in vertical dimension. Small bowel loops are seen extending into the hernia sac which are dilated. There is dilatation of small bowel loops proximal to the hernia sac consistent with small bowel obstruction. The loop of small bowel extending from the sac is not distended and is the distal ileum. There is inflammation of the mesentery within the hernia sac. No free fluid or free air or pneumatosis intestinalis is seen. There is another more superior anterior abdominal wall midline hernia containing a short segment of small bowel. This hernia sac measures 5.4 cm transversely and 4 cm in vertical dimension. These hernia sacs have developed since the prior study. No lung base consolidation is evident. No lytic process is seen. IMPRESSION: 2 anterior abdominal wall midline hernias are seen. The more inferio r sac is larger and results in a small bowel obstruction due to incarceration of small bowel loops. Smaller more superior hernia sac does contain a short segment of small bowel but no obstruction is seen here. No free air or free fluid is evident. Electronically signed by: Rubin García MD (11/24/2020 9:45 PM) [id number] DICTATED AND SIGNED BY: RUBIN GARCAÍ MD DATE: 11/24/202135 CC: JOHN RUIZ DO; OZIEL GUTIERREZ MD ~MTH0 0 Heart Score: C/O Chest Pain: No Risk Factors: Risk Factors: DM, Current or recent (<one month) smoker, HTN, HLP, family history of CAD, obesity. Risk Scores: Score 0 - 3: 2.5% MACE over next 6 weeks - Discharge Home Score 4 - 6: 20.3% MACE over next 6 weeks - Admit for Clinical Observation Score 7 - 10: 72.7% MACE over next 6 weeks - Early Invasive Strategies Course & Med Decision Making: Course & Med Decision Making Pertinent Labs and Imaging studies reviewed. (See chart for details) The patient does have a bowel obstruction with small bowel in her hernia with incarceration. I will contact the general surgeon. I spoke with general surgery, Dr. Joseph and he was requested the patient be transferred to [facility] for surgery. The patient is in agreement with this plan. I spoke with the hospitalist, Dr. Ramirez and he has accepted the patient for admission. She will go by ambulance. 43 minutes of critical care time was spent on this patient exclusive of other billable procedures. [] Dragon Disclaimer: Dragon Disclaimer: This electronic medical record was generated, in whole or in part, using a voice recognition dictation system. Departure Departure: Impression: Primary Impression: Small bowel obstruction Additional Impression: Ventral hernia with bowel obstruction Disposition: 02 SHORT [facility] Admitting Physician: Jacky Ramirez Condition: GUARDED Referrals: OZIEL GUTIERREZ MD (PCP) JOHN RUIZ DO Nov 24, 2020 19:27
[2020-11-24] MEDS ORDERED: MORPHINE SULFATE 4 MG/ML DISP.SYRIN. IV ONE ×2 (19:30→23:00)
[2020-11-24] MEDS ORDERED: IOHEXOL 300 MG/ML 75 ML VIAL. IV ONE (19:30)
[2020-11-24] MEDS ORDERED: IV NORMAL SALINE 1,000ML 1,000 ML IV ONE (19:30)
[2020-11-24] MEDS ORDERED: ONDANSETRON PF 4 MG/2 ML VIAL. IVP ONE (19:30)
[2020-11-24] MEDS ORDERED: CONTRAST GIVEN. MC PRN (20:00)
[2020-11-24 20:20] LABS: BASO % 1 % (0-3); EOS % 1 % (0-3); HEMATOCRIT 35.8 % (36.0-47.0); HEMOGLOBIN 12.3 g/dL (12.0-15.5); LYMPH # 1.2 x10^3/uL (1.0-4.8); LYMPH % 22 % (24-48); MEAN CORPUSCULAR HEMOGLOBIN 35 pg (25-35); MEAN CORPUSCULAR HGB CONC 34 g/dL (31-37); MEAN CORPUSCULAR VOLUME 101 fL (79-100); MONO # 0.4 x10^3/uL (0.0-1.1); MONO % 8 % (0-9); NEUT # 3.6 x10^3uL (1.8-7.7); NEUT % 68 % (31-73); PLATELET COUNT 351 x10^3/uL (140-400); RED BLOOD COUNT 3.56 x10^6/uL (3.50-5.40); RED CELL DISTRIBUTION WIDTH 14.1 % (11.5-14.5); WHITE BLOOD COUNT 5.2 x10^3/uL (4.0-11.0)
[2020-11-24 20:26] LABS: CALCIUM 8.3 mg/dL (8.5-10.1); CREATININE 0.8 mg/dL (0.6-1.0); GFR 73.2
[2020-11-24 20:32] LABS: ALBUMIN 3.5 g/dL (3.4-5.0); ALBUMIN/GLOBULIN RATIO 1.1 (1.0-1.7); TOTAL BILIRUBIN 0.5 mg/dL (0.2-1.0); TOTAL PROTEIN 6.6 g/dL (6.4-8.2)
[2020-11-24] MEDS ORDERED: POTASSIUM CHLORIDE 20MEQ 100 ML IV ONE (20:45)
--- NOTE | 2020-11-24 21:48 | RAD ---
CT STUDY OF THE ABDOMEN AND PELVIS WITH CONTRAST Clinical indications: Hernia. Possible obstruction. TECHNIQUE: After IV infusion of 75 cc Omnipaque 300, helical CT scanning of the abdomen and pelvis wa s performed. GI contrast was not administered. This may decrease the sensitivity to detect GI tract p athology. PQRS COMPLIANCE STATEMENT One or more of the following individualized dose reduction techniques were utilized for this study: 1. Automated exposure control 2. Adjustment of the mA and/or kV according to patient size 3. Use of iterative reconstruction technique COMPARISON: July 21, 2018. FINDINGS: Small hepatic cyst is seen. Spleen is not enlarged. The pancreas and gallbladder are normal . No extra hepatic biliary ductal dilatation is seen. No adrenal mass is evident. Both kidneys are no rmal without hydronephrosis or hydroureter. No urinary tract stone is evident. IVC filter is apparent . No focal aneurysmal dilatation of the abdominal aorta is seen. No bulky abdominal or pelvic lymphad enopathy is seen. Urinary bladder is distended and urinary bladder wall is smooth. No uterine mass is evident. No dominant ovarian cyst or mass is seen. There is a large anterior abdominal wall hernia l ocated at the level of the umbilicus. It measures 13 cm transversely and 12 cm in vertical dimension. Small bowel loops are seen extending into the hernia sac which are dilated. There is dilatation of s mall bowel loops proximal to the hernia sac consistent with small bowel obstruction. The loop of smal l bowel extending from the sac is not distended and is the distal ileum. There is inflammation of the mesentery within the hernia sac. No free fluid or free air or pneumatosis intestinalis is seen. Ther e is another more superior anterior abdominal wall midline hernia containing a short segment of small bowel. This hernia sac measures 5.4 cm transversely and 4 cm in vertical dimension. These hernia sac s have developed since the prior study. No lung base consolidation is evident. No lytic process is se en. IMPRESSION: 2 anterior abdominal wall midline hernias are seen. The more inferior sac is larger and r esults in a small bowel obstruction due to incarceration of small bowel loops. Smaller more superior hernia sac does contain a short segment of small bowel but no obstruction is seen here. No free air o r free fluid is evident. Electronically signed by: Panfilo García MD (11/24/2020 9:45 PM) [id number]
[2020-11-24] MEDS ORDERED: ALBUTEROL SULFATE 2.5 MG/3 ML NEBU. NEB ONE (23:30)
[2020-11-24 23:40] VITALS: BP 112/51
== END 2020-11-24 23:55 | disposition short-term general hospital (02) ==
LOC: ER 18:55
DX: K56.609 Unspecified intestinal obstruction, unspecified as to partial versus complete obstruction (principal); K43.6 Other and unspecified ventral hernia with obstruction, without gangrene; F10.20 Alcohol dependence, uncomplicated; Y90.9 Presence of alcohol in blood, level not specified; J44.9 Chronic obstructive pulmonary disease, unspecified; F17.200 Nicotine dependence, unspecified, uncomplicated; Z20.822 Contact with and (suspected) exposure to COVID-19; Z88.5 Allergy status to narcotic agent
CPT/HCPCS: 36415; 74177; 80053; 83605; 85025; 85610; 85730; 87426; 94640; 96361; 96374; 96375; 96376; 99285; C9803; J2270; J2405; J3480; J7030; J7613; Q9967; U0003; U0005

== ENCOUNTER 2021-02-11 01:54 | Observation (INO) | payer OTHER ==
[~2021-02-11] VITALS: Ht 157.5 cm; Wt 61.3 kg
[2021-02-11] MEDS ORDERED: IPRATRPIUM/ALBUTEROL 0.5/2.5MG 3 ML NEBU. ONE ×2 (02:12→04:59)
[2021-02-11] MEDS ORDERED: ALBUTEROL SULFATE 2.5 MG/3 ML NEBU. ONE (02:12)
--- NOTE | 2021-02-11 06:00 | NUR ---
ADMISSION NOTE Received pt from ED in stable condition via cart, report called by Katherine TAYLOR prior to transport; A&Ox4; ambulates unassisted from cart to bed; VSS, O2 Sats 88% on 3L via nasal cannula, 92% on 4L, respirations even and unlabored; occasional expiratory wheezing ausculatated throughout all lung escobar; no cough noted; denies SOA while at rest; admission history complete; declines to discuss home medications, will obtain info from preferred pharmacy when able; room orientation given, plan of care discussed, verbalized understanding; siderails up x2, call magana in reach; watching tv at present with no voiced needs or concerns at this time.
[2021-02-11 08:02] LABS: BASO % 1 % (0-3); EOS # 0.4 x10^3/uL (0.0-0.7); EOS % 9 % (0-3); HEMATOCRIT 35.8 % (36.0-47.0); HEMOGLOBIN 12.2 g/dL (12.0-15.5); LYMPH # 1.5 x10^3/uL (1.0-4.8); LYMPH % 36 % (24-48); MEAN CORPUSCULAR HEMOGLOBIN 32 pg (25-35); MEAN CORPUSCULAR HGB CONC 34 g/dL (31-37); MEAN CORPUSCULAR VOLUME 95 fL (79-100); MONO # 0.3 x10^3/uL (0.0-1.1); MONO % 7 % (0-9); NEUT % 48 % (31-73); PLATELET COUNT 263 x10^3/uL (140-400); RED BLOOD COUNT 3.76 x10^6/uL (3.50-5.40); RED CELL DISTRIBUTION WIDTH 15.2 % (11.5-14.5); WHITE BLOOD COUNT 4.3 x10^3/uL (4.0-11.0)
[2021-02-11 08:04] LABS: ALBUMIN 3.1 g/dL (3.4-5.0); ALBUMIN/GLOBULIN RATIO 1.1 (1.0-1.7); CALCIUM 8.2 mg/dL (8.5-10.1); CREATININE 0.5 mg/dL (0.6-1.0); GFR 125.9; POTASSIUM 3.1 mmol/L (3.5-5.1); TOTAL BILIRUBIN 0.2 mg/dL (0.2-1.0); TOTAL PROTEIN 5.9 g/dL (6.4-8.2)
--- NOTE | 2021-02-11 08:13 | RAD ---
EXAM: Chest, single view. HISTORY: Shortest of breath. COMPARISON: 08/04/2019 FINDINGS: A frontal view of the chest obtained. There is no infiltrate, pleural effusion or pneumotho rax. There is a stable cardiac silhouette. There is stable chronic deformity of the proximal left hum erus. IMPRESSION: No acute pulmonary finding. Electronically signed by: Martha Lam MD (02/11/2021 8:10 AM) [id number]
--- NOTE | 2021-02-11 09:27 | HP ---
ADMIT DATE: 02/11/2021 ATTENDING PHYSICIAN: Dr. Schmidt. CHIEF COMPLAINT: Shortness of breath. HISTORY OF PRESENT ILLNESS: The patient is a 60-year-old female admitted through the ED with shortness of breath, wheezing. She unfortunately is a smoker. She is under a lot of stress at work and at home. Initial chest x-ray in the ED showed no acute infiltrate. She was admitted with an exacerbation of chronic obstructive pulmonary disease. The patient had a nonproductive cough. She is very anxious, tearful. We tried to have a fairly normal conversation. She was able to calm down. PAST MEDICAL HISTORY: Significant for acute on chronic respiratory failure, chronic alcohol use, pulmonary embolism, major depression and suicidal ideation. She also has essential hypertension, hypothyroidism. She is not suicidal at this time. MEDICATIONS: Medicines reviewed include albuterol, Alprazolam 1 mg at bedtime, Zithromax, budesonide, cefpodoxime, Flexeril, Cymbalta, Synthroid, lisinopril, hydrochlorothiazide, Dulera, Lyrica and trazodone. ALLERGIES: SHE HAS ALLERGIES TO CODEINE, exact reaction is unclear. SOCIAL HISTORY: Smoking history as noted, drinking history as noted. She is not actively drinking at this time. FAMILY HISTORY: Noncontributory. REVIEW OF SYSTEMS: Significant for sleep disturbances, chronic alcoholism, stresses at work, some nausea, dyspnea with minimal exertion. All other systems reviewed and turned to be negative. PHYSICAL EXAMINATION: GENERAL: When I saw her, this is a chronically ill-appearing female, appearing older than stated age. INITIAL VITAL SIGNS: In the ED showed a blood pressure 130 systolic, oxygen saturation on oxygen was 93%. She is afebrile. HEENT: Head is without trauma. Pupils are reactive. Sclerae nonicteric. The oropharynx is clear. NECK: Supple, no bruits identified. LUNGS: Minimal wheezing noted. CARDIOVASCULAR: Showed regular heart tones. No gallops, no murmurs. Peripheral pulses are palpable and full. ABDOMEN: Soft, scaphoid, nontender, no organomegaly. Bowel sounds are hypoactive. EXTREMITIES: Show no cyanosis or edema. NEUROLOGIC: Function focally intact. SKIN: Warm and dry. PERTINENT LABORATORY STUDIES: Hemoglobin is 12.2 g/dL, white count 4300. Electrolytes: Sodium 143, potassium 3.1 mEq. This will be followed outpatient. She is asymptomatic. Cardiac enzymes negative. Transaminases were normal. Chest x-ray as noted. ASSESSMENT: 1. This 60-year-old female has [id number] respiratory failure. 2. Exacerbation of chronic obstructive pulmonary disease. 3. Essential hypertension. 4. Chronic alcoholism by history. 5. Tobacco addiction. 6. Generalized depression with anxiety. PLAN: 1. Observation status. 2. We will wean down supplemental oxygen. 3. Intravenous corticosteroids. 4. Continue home meds. KISHAN DR: Madelyn TID: [id number] CC: OZIEL GUTIERREZ MD
--- NOTE | 2021-02-11 12:57 | DS ---
DATE OF DISCHARGE: 02/11/2021 ATTENDING PHYSICIAN: Dr. Schmidt. FINAL DISCHARGE DIAGNOSES: 1. Exacerbation of chronic obstructive pulmonary disease. 2. Acute on chronic respiratory failure. 3. Underlying depression with anxiety. 4. Essential hypertension. 5. History of psoriatic arthritis. 6. Hypothyroidism, on replacement. HISTORY AND PHYSICAL: This 60-year-old female continues to smoke. She was admitted with increasing shortness of breath, dyspnea and exacerbation of chronic obstructive pulmonary disease. Chest x-ray was clear. Clinically, she did not appear septic. She was afebrile. She was admitted then with mild hypoxemia, oxygen saturation 88%. PHYSICAL EXAMINATION: Please see the dictated note. PERTINENT LABORATORY AND X-RAY STUDIES: Her potassium was 3.1 mEq. This will be replaced and followup as an outpatient. Her blood pressure was stable. Her chest x-ray was clear. She did not require antibiotics. She was given steroids, nebulizer treatment and continuation of home meds. She wanted to go home the next day and I felt this is reasonable. We got her oxygen weaned off. She had an adequate saturation of 90% on room air. I recommended no change in the home meds. I wrote her a refill for her albuterol metered dose inhaler. I suggested a second 0.5 mg dose of Xanax in the morning. She will decide whether she wants to use it. In addition, I gave her 7 more days of prednisone 60 mg p.o. daily and some potassium supplementation because of her diuretic. K-Dur 20 mEq daily for 10 days. She will continue her evening alprazolam, Tessalon Perles, budesonide, Flexeril p.r.n., Cymbalta, Synthroid, lisinopril, hydrochlorothiazide, Dulera, Lyrica and trazodone, doses unchanged. Strong encouragement to avoid further cigarette use. If she chooses to use nicotine, she is actually better off using the e-cigarettes. She was discharged then from our hospital in stable condition with explicit drug and followup care. ANITRA DR: Madelyn TID: [id number] CC: Juan Antonio Miller
--- NOTE | 2021-02-12 06:32 | EKG ---
[address] [address] Test Date: 2021-02-11 Test Time: 03:00:33 Pat Name: LUPILLO STEWART Department: Room: 115 A Gender: F Soap Inspector: : [id number] Requested By: LALIT MENDOZA Order Number: [id number] Reading MD: Measurements Intervals [place] Rate: 109 P: 66 IN: 168 QRS: 49 QRSD: 72 T: 48 QT: 326 QTc: 441 Interpretive Statements SINUS TACHYCARDIA LOW LIMB LEAD VOLTAGE NO SPECIFIC ECG ABNORMALITIES RI6.02 No previous ECG available for comparison
== END 2021-02-11 09:43 | disposition home or self-care (01) ==
LOC: ER 01:54 → 1 SOUTH 07:03 → INTOOBSV 07:03
PROVIDERS: ADMIT Hospitalist; ATTEND Hospitalist
DX: J44.1 Chronic obstructive pulmonary disease with (acute) exacerbation (principal); J96.21 Acute and chronic respiratory failure with hypoxia; I10 Essential (primary) hypertension; F32.9 Major depressive disorder, single episode, unspecified; F41.9 Anxiety disorder, unspecified; F17.200 Nicotine dependence, unspecified, uncomplicated; F10.20 Alcohol dependence, uncomplicated; R45.851 Suicidal ideations; E03.9 Hypothyroidism, unspecified; L40.50 Arthropathic psoriasis, unspecified; Z86.711 Personal history of pulmonary embolism
CPT/HCPCS: 36415; 71045; 80053; 83880; 84484; 85025; 94640; 94644; 99284; G0378; G0379

== ENCOUNTER 2021-04-20 18:02 | Emergency (ER) | payer OTHER ==
[~2021-04-20 18:02] MED LIST changes: -DOXY100C2 PO; +DOXY100C3 PO
--- NOTE | 2021-04-20 18:41 | PHYS DOC ---
Past History Past Medical History: Alcoholism, Asthma, Bronchitis, Cancer, COPD Additional Past Medical Histor: DVT and PE in 07/11/2017 (BELLO GUADALUPE APRN) Past Surgical History: Other Additional Past Surgical Histo: COLON MASS REMOVAL (BELLO GUADALUPE APRN) Smoking: Less than 1pk/day Alcohol Use: Heavy Drug Use: None (BELLO GUADALUPE APRN) General Adult EDM: Chief Complaint: ABDOMINAL PAIN HPI: HPI: Patient is a 60-year-old female being seen in the ER for abdominal pain. [place] reports that she is chronic abdominal pain but is gotten worse today. Patient has a history of an umbilical hernia from previous abdominal surgery for bowel obstruction. Patient reports that she had her surgery at [facility]. Patient rates her pain 8 out of 10 describes it as a constant pain. She denies any nausea, vomiting, diarrhea, fevers, blood in stools. (BELLO GUADALUPE APRN) Review of Systems: Review of Systems: 14 body systems of the review of systems have been reviewed. See HPI for pertinent positive and negative responses, otherwise all other systems are negative, nonpertinent or noncontributory (BELLO GUADALUPE APRN) Current Medications: Current Meds: Current Medications Medications (Trade) Dose Ordered Sig/Yanique Start Time Stop Time Status Last Admin Dose Admin Fentanyl Citrate (Fentanyl 2ml Vial) 50 mcg 1X ONCE 04/20/21 18:45 04/20/21 18:46 UNV Sodium Chloride 1,000 ml @ 1,000 mls/hr 1X ONCE 04/20/21 18:45 04/20/21 19:44 UNV (BELLO GUADALUPE APRN) Allergies: Allergies: Allergies Coded Allergies Type Severity Reaction Last Updated Verified codeine Adverse Reaction Intermediate Nausea and Vomiting 11/24/20 No (BELLO GUADALUPE APRN) Physical Exam: PE: Constitutional: Well developed, well nourished, no acute distress, non-toxic appearance. [] HENT: Normocephalic, atraumatic, bilateral external ears normal, oropharynx moist, no oral exudates, nose normal. [] Eyes: PERRLA, EOMI, conjunctiva normal, no discharge. [] Neck: Normal range of motion, no stridor Cardiovascular:Heart rate regular rhythm, no murmur [] Lungs & Thorax: Bilateral breath sounds clear to auscultation [] Abdomen: Bowel sounds normal, soft, generalized abdominal tenderness reported with palpation, no pulsatile masses, umbilical hernia noted Skin: Warm, dry, no erythema, no rash. [] Back: Normal range of motion Extremities: No tenderness, no cyanosis, no clubbing, ROM intact, no edema. [] Neurologic: Alert and oriented X 3, normal motor function, normal sensory function, no focal deficits noted. [] Psychologic: Affect normal, judgement normal, mood normal. [] (BELLO GUADALUPE APRN) Current Patient Data: Labs: Laboratory Tests Test 04/20/21 19:40 04/20/21 19:50 Urine Collection Type Unknown Urine Color Yellow Urine Clarity Hazy Urine pH 7.0 Urine Specific [place] 1.010 Urine Protein Neg Urine Glucose (UA) Neg mg/dL Urine Ketones (Stick) Neg mg/dL Urine Blood Neg Urine Nitrite Neg Urine Bilirubin Neg Urine Urobilinogen Dipstick 0.2 mg/dL Urine Leukocyte Esterase Small Urine RBC Occ /HPF Urine WBC 1-4 /HPF Urine Squamous Epithelial Cells Few /LPF Urine Bacteria 0 /HPF Urine Opiates Screen Neg Urine Methadone Screen Neg Urine Barbiturates Neg Urine Phencyclidine Screen Neg Urine Amphetamine/Methamphetamine Neg Urine Benzodiazepines Screen Neg Urine Cocaine Screen Neg Urine Cannabinoids Screen Neg Urine Ethyl Alcohol Pos White Blood Count 5.2 x10^3/uL Red Blood Count 4.12 x10^6/uL Hemoglobin 12.6 g/dL Hematocrit 37.8 % Mean Corpuscular Volume 92 fL Mean Corpuscular Hemoglobin 31 pg Mean Corpuscular Hemoglobin Concent 33 g/dL Red Cell Distribution Width 15.3 % Platelet Count 357 x10^3/uL Neutrophils (%) (Auto) 53 % Lymphocytes (%) (Auto) 35 % Monocytes (%) (Auto) 9 % Eosinophils (%) (Auto) 2 % Basophils (%) (Auto) 1 % Neutrophils # (Auto) 2.8 x10^3uL Lymphocytes # (Auto) 1.8 x10^3/uL Monocytes # (Auto) 0.5 x10^3/uL Eosinophils # (Auto) 0.1 x10^3/uL Basophils # (Auto) 0.1 x10^3/uL Sodium Level 130 mmol/L Potassium Level 3.1 mmol/L Chloride Level 94 mmol/L Carbon Dioxide Level 27 mmol/L Anion Gap 9 Blood Urea Nitrogen 7 mg/dL Creatinine 0.5 mg/dL Estimated GFR (Cockcroft-Gault) 125.9 BUN/Creatinine Ratio 14 Glucose Level 102 mg/dL Calcium Level 8.4 mg/dL Total Bilirubin 0.3 mg/dL Aspartate Amino Transf (AST/SGOT) 22 U/L Alanine Aminotransferase (ALT/SGPT) 27 U/L Alkaline Phosphatase 80 U/L Total Protein 6.1 g/dL Albumin 3.3 g/dL Albumin/Globulin Ratio 1.2 Lipase 126 U/L Current Medications Medications (Trade) Dose Ordered Sig/Yanique Route PRN Reason Start Time Stop Time Status Last Admin Dose Admin Sodium Chloride 1,000 ml @ 1,000 mls/hr 1X ONCE IV 04/20/21 18:45 04/20/21 19:44 DC 04/20/21 19:58 Fentanyl Citrate (Fentanyl 2ml Vial) 50 mcg 1X ONCE IVP 04/20/21 18:45 04/20/21 18:46 DC 04/20/21 19:59 Iohexol (Omnipaque 300 Mg/ml) 75 ml 1X ONCE IV 04/20/21 18:45 04/20/21 18:46 DC 04/20/21 19:07 Fentanyl Citrate (Fentanyl 2ml Vial) 50 mcg 1X ONCE IVP 04/20/21 20:00 04/20/21 20:01 DC (BELLO GUADALUPE APRN) EKG: EKG: [] (BELLO GUADALUPE APRN) Radiology/Procedures: Radiology/Procedures: PROCEDURE: CT ABD PELV W/ IV CONTRST ONLY Study: CT abdomen/pelvis with intravenous contrast Indication: Abdominal pain. Comparison: 03/26/2021 Technique: Helical CT imaging performed of the abdomen and pelvis after the intravenous administration of 75 cc Omnipaque 300 contrast. Sagittal and coronal reformats were obtained. One or more of the following individualized dose reduction techniques were utilized for this examination: 1. Automated exposure control 2. Adjustment of the mA and/or kV according to patient size 3. Use of iterative reconstruction technique. Findings: Chest: No significant interval change with redemonstration of a few small nodules. Small hiatal hernia. Liver: No newly seen abnormality. Unchanged subcentimeter hypoattenuating focus within hepatic segment 6. Gallbladder/Biliary Tree: Unremarkable. Pancreas: Unremarkable. Spleen: Within normal limits for size. Adrenal Glands: No adrenal gland mass. Kidneys/Ureters/Bladder: Symmetric renal parenchymal enhancement. No hydronephrosis. Unremarkable bladder. Reproductive Organs: Within normal limits. Colon: Mild volume well-formed stool burden scattered throughout the colon. Localized well-formed stool at the distal aspect of the transverse segment with subsequent luminal collapse. A similar configuration was present on the prior. Appendix: Not well visualized. No inflammatory changes at its expected location. Small Bowel: Redemonstrated ventral midline hernia containing small bowel. The hernia neck is measured at 5 cm transverse. The hernia sac measures up to 11.5 cm transverse by 9 cm craniocaudal by 5 cm AP. There is no overt dilatation of small bowel leading into the hernia sac or collapse of the exiting small bowel to indicate associated obstruction. Previously seen fatty edema within the hernia sac is no longer apparent. No pneumatosis or perforation. A smaller more cephalad hernia located right paramidline in location no longer contains small bowel. Stomach: Unremarkable. Vasculature: IVC filter with the cephalad tip below the renal veins. Scattered calcified and noncalcified atheromatous plaque. Nonaneurysmal aorta. Patent central portal veins and superior mesenteric vein. Lymph Nodes: No significant interval change. Peritoneum and Body Wall: Hernias as described. No free fluid or pneumoperitoneum. Bones: No change in the extent of scattered arthrosis/spondylosis. Redemonstration of degenerative grade 1 anterolisthesis of L3 on L4. Miscellaneous: None. Impression: 1. Again noted are two dominant ventral midline hernias with the larger hernia at/below the umbilicus and containing small bowel. There are no findings of high grade obstruction associated with the hernia. No pneumatosis or perforation. Recommend clinical correlation for pinpoint tenderness/reducibility at this location. 2. Well-formed stool mildly distending the distal transverse colon with subsequent luminal decompression. A similar configuration was present on the prior. No suspicious wall thickening to suggest a mass at this location but a stricture is possible. Background mild constipation. 3. Several additional unchanged/chronic findings described in the body of the report. Electronically signed by: EDWARDO NYE MD (04/20/2021 7:43 PM) [facility] DICTATED AND SIGNED BY: EDWARDO NYE MD DATE: 04/20/211927 CC: BELLO GUADALUPE APRN; OZIEL GUTIERREZ MD ~MTH0 0 [] (BELLO GUADALUPE APRN) Heart Score: C/O Chest Pain: No Risk Factors: Risk Factors: DM, Current or recent (<one month) smoker, HTN, HLP, family history of CAD, obesity. Risk Scores: Score 0 - 3: 2.5% MACE over next 6 weeks - Discharge Home Score 4 - 6: 20.3% MACE over next 6 weeks - Admit for Clinical Observation Score 7 - 10: 72.7% MACE over next 6 weeks - Early Invasive Strategies (BELLO GUADALUPE APRN) Course & Med Decision Making: Course & Med Decision Making Pertinent Labs and Imaging studies reviewed. (See chart for details) Patient is a 60-year-old female being seen in the ER for abdominal pain at umbilical hernia site. Work-up in the ER consisted of blood work, urinalysis and CT imaging of abdomen. Patient treated with fluids and pain medication. Patient's vital signs are stable and she is in no acute distress. Currently asking for the remote so she can watch the [employer] game. CT scan of abdomen shows mild constipation, patient discharged home with mag citrate. Patient has a ventral midline hernias at/below the umbilicus without any obstruction or perforation similar to previous exam. Patient was given pain medication and attention to reduce the hernia was made.Hernia does reduce but does come back out. Patient was noted to have hyponatremia and hypokalemia. She was given IV fluids in the ER. Her potassium was replaced. Patient was noted to have a mild urinary tract infection. She will be given a prescription for an antibiotic, first dose given in ER. Patient's vital signs are stable. I discussed with patient all findings and diagnostic testing as well as the need to follow-up with PCP for further evaluation and treatment or return to the ER if any new or worsening symptoms. Strict return precautions were also discussed at length. Patient voiced understanding and agreement with the plan. Patient is hemodynamically stable at the time of disposition. (BELLO GUADALUPE APRN) Course & Med Decision Making Did not see or evaluate patient. Did not discuss patient with ASSOCIATE RESEARCH SCIENTIST. Agree with ASSOCIATE RESEARCH SCIENTIST's work-up and disposition per note (EDWIN MANZANO MD) [place] Disclaimer: Dragon Disclaimer: This electronic medical record was generated, in whole or in part, using a voice recognition dictation system. (BELLO GUADALUPE APRN) Departure Departure: Impression: Primary Impression: Abdominal pain Qualified Codes: R10.33 - Periumbilical pain Additional Impressions: Urinary tract infection Qualified Codes: N30.00 - Acute cystitis without hematuria Constipation Qualified Codes: K59.00 - Constipation, unspecified Hypokalemia Disposition: HOME / SELF CARE / HOMELESS Condition: GOOD Referrals: OZIEL GUTIERREZ MD (PCP) Patient Instructions: Hernia, Hypokalemia, Urinary Tract Infection Additional Instructions: You were seen in the ER today for abdominal pain at your hernia site. The CT scan of your abdomen showed a hernia without any obstruction or perforation. You were noted to have mild constipation. You are being discharged home with magnesium citrate that you can take for your constipation. Drink half a bottle when you get home to try to produce a bowel movement. If you do not produce a bowel movement you can drink the other half and 4 to 6 hours later. You may need to add daily MiraLAX. You were noted to have a low potassium level. This was replaced in the ER. Make sure you are at home you are eating potassium rich foods like green leafy vegetables and bananas. Your urinalysis showed a mild urinary tract infection. This will be treated with an antibiotic. You were given your first dose in the ER. Please start and finish this completely. Increase your fluids at home. Avoid bladder irritants like sugary beverages, alcohol and caffeine. Follow-up with your primary care provider tomorrow regar ding your ER visit. If you develop worsening of your abdominal pain, intractable nausea or vomiting, blood in your stools or vomit, high fevers refractory to treatment or any new or worsening concerns please return to the ER. EMERGENCY DEPARTMENT GENERAL DISCHARGE INSTRUCTIONS Thank you for coming to [facility] (ED) today and trusting us with you care. We trust that you had a positivie experience in our Emergency Department. If you wish to speak to the department management, you may call the director at [phone]. YOUR FOLLOW UP INSTRUCTIONS ARE FOLLOWS: 1. Do you have a private Doctor? If you do not have a private doctor, please ask for a resource list of physicians or clinics that may be able to assist you with follow up care. 2. The Emergency Physician has interpreted your x-rays. The X-Ray specialist will also review them. If there is a change in the findings, you will be notified in 48 hours when at all possible. 3. A lab test or culture has been done, your results will be reviewed and you will be notified if you need a change in treatment. ADDITIONAL INSTRUCTIONS AND INFORMATION: 1. Your care today has been supervised by a physician who is specially trained in emergency care. Many problems require more than one evaluation for a complete diagnosis and treatment. We recommend that you schedule your follow up appointment as raquel mmended to ensure complete treatment of you illness or injury. If you are unable to obtain follow up care and continue to have a problem, or if your condition worsens, we recommend that you return to the ED. 2. We are not able to safely determine your condition over the phone nor are we able to give sound medical advice over the phone. For these safety reasons, if you call for medical advice we will ask you to come to the ED for further evaluation. 3. If you have any questions regarding these discharge instructions please call the ED at [phone]. SAFETY INFORMATION: In the interest of safety, wellness, and injury prevention; we encourage you to wear your sealbelt, if you smoke; quite smoking, and we encourage family to use a protective helmet for bicycling and other sporting events that present an increased risk for head injury. IF YOUR SYMPTOMS WORSEN OR NEW SYMPTOMS DEVELOP, OR YOU HAVE CONCERNS ABOUT YOUR CONDITION; OR IF YOUR CONDITION WORSENS WHILE YOU ARE WAITING FOR YOUR FOLLOW UP APPOINTMENT; EITHER CONTACT YOUR PRIMARY CARE DOCTOR, THE PHYSICIAN WHOSE NAME AND NUMBER YOU WERE GIVEN, OR RETURN TO THE ED IMMEDIATELY. Scripts Cephalexin (CEPHALEXIN) 500 Mg Tablet 1 TAB PO BID for UTI for 7 Days, #14 TAB 0 Refills Prov: BELLO GUADALUPE APRN 04/20/21 BELLO GUADALUPE APRN Apr 20, 2021 18:41 EDWIN MANZANO MD Apr 20, 2021 21:31
[2021-04-20] MEDS ORDERED: IOHEXOL 300 MG/ML 75 ML VIAL. IV ONE (18:45)
[2021-04-20] MEDS ORDERED: IV NORMAL SALINE 1,000ML 1,000 ML IV ONE (18:45)
--- NOTE | 2021-04-20 19:46 | RAD ---
Study: CT abdomen/pelvis with intravenous contrast Indication: Abdominal pain. Comparison: 03/26/2021 Technique: Helical CT imaging performed of the abdomen and pelvis after the intravenous administratio n of 75 cc Omnipaque 300 contrast. Sagittal and coronal reformats were obtained. One or more of the following individualized dose reduction techniques were utilized for this examinat ion: 1. Automated exposure control 2. Adjustment of the mA and/or kV according to patient size 3. Use of iterative reconstruction technique. Findings: Chest: No significant interval change with redemonstration of a few small nodules. Small hiatal herni a. Liver: No newly seen abnormality. Unchanged subcentimeter hypoattenuating focus within hepatic segmen t 6. Gallbladder/Biliary Tree: Unremarkable. Pancreas: Unremarkable. Spleen: Within normal limits for size. Adrenal Glands: No adrenal gland mass. Kidneys/Ureters/Bladder: Symmetric renal parenchymal enhancement. No hydronephrosis. Unremarkable ozzy dder. Reproductive Organs: Within normal limits. Colon: Mild volume well-formed stool burden scattered throughout the colon. Localized well-formed sto ol at the distal aspect of the transverse segment with subsequent luminal collapse. A similar configu ration was present on the prior. Appendix: Not well visualized. No inflammatory changes at its expected location. Small Bowel: Redemonstrated ventral midline hernia containing small bowel. The hernia neck is measure d at 5 cm transverse. The hernia sac measures up to 11.5 cm transverse by 9 cm craniocaudal by 5 cm A P. There is no overt dilatation of small bowel leading into the hernia sac or collapse of the exiting small bowel to indicate associated obstruction. Previously seen fatty edema within the hernia sac is no longer apparent. No pneumatosis or perforation. A smaller more cephalad hernia located right para midline in location no longer contains small bowel. Stomach: Unremarkable. Vasculature: IVC filter with the cephalad tip below the renal veins. Scattered calcified and noncalci fied atheromatous plaque. Nonaneurysmal aorta. Patent central portal veins and superior mesenteric ve in. Lymph Nodes: No significant interval change. Peritoneum and Body Wall: Hernias as described. No free fluid or pneumoperitoneum. Bones: No change in the extent of scattered arthrosis/spondylosis. Redemonstration of degenerative gr wood 1 anterolisthesis of L3 on L4. Miscellaneous: None. Impression: 1. Again noted are two dominant ventral midline hernias with the larger hernia at/below the umbilicu s and containing small bowel. There are no findings of high grade obstruction associated with the her jessika. No pneumatosis or perforation. Recommend clinical correlation for pinpoint tenderness/reducibili ty at this location. 2. Well-formed stool mildly distending the distal transverse colon with subsequent luminal decompres raegan. A similar configuration was present on the prior. No suspicious wall thickening to suggest a ma ss at this location but a stricture is possible. Background mild constipation. 3. Several additional unchanged/chronic findings described in the body of the report. Electronically signed by: EDWARDO NYE MD (04/20/2021 7:43 PM) [facility]
[2021-04-20 20:26] LABS: BASO # 0.1 x10^3/uL (0.0-0.2); BASO % 1 % (0-3); EOS # 0.1 x10^3/uL (0.0-0.7); EOS % 2 % (0-3); HEMATOCRIT 37.8 % (36.0-47.0); HEMOGLOBIN 12.6 g/dL (12.0-15.5); LYMPH # 1.8 x10^3/uL (1.0-4.8); LYMPH % 35 % (24-48); MEAN CORPUSCULAR HEMOGLOBIN 31 pg (25-35); MEAN CORPUSCULAR HGB CONC 33 g/dL (31-37); MEAN CORPUSCULAR VOLUME 92 fL (79-100); MONO # 0.5 x10^3/uL (0.0-1.1); MONO % 9 % (0-9); NEUT # 2.8 x10^3uL (1.8-7.7); NEUT % 53 % (31-73); PLATELET COUNT 357 x10^3/uL (140-400); RED BLOOD COUNT 4.12 x10^6/uL (3.50-5.40); RED CELL DISTRIBUTION WIDTH 15.3 % (11.5-14.5); WHITE BLOOD COUNT 5.2 x10^3/uL (4.0-11.0)
[2021-04-20 20:36] LABS: BARBITURATES NEG (NEG); BENZODIAZEPINES NEG (NEG); CANNABINOIDS NEG (NEG); COCAINE NEG (NEG); METHADONE NEG (NEG); OPIATES NEG (NEG); PHENCYCLIDINE NEG (NEG)
[2021-04-20 20:37] LABS: AMPHETAMINE/METHAMPHETAMINE NEG (NEG)
[2021-04-20 20:37] LABS: CALCIUM 8.4 mg/dL (8.5-10.1); CREATININE 0.5 mg/dL (0.6-1.0); GFR 125.9; POTASSIUM 3.1 mmol/L (3.5-5.1)
[2021-04-20 20:42] LABS: ALBUMIN 3.3 g/dL (3.4-5.0); ALBUMIN/GLOBULIN RATIO 1.2 (1.0-1.7); TOTAL BILIRUBIN 0.3 mg/dL (0.2-1.0); TOTAL PROTEIN 6.1 g/dL (6.4-8.2)
[2021-04-20 20:46] LABS: BACTERIA,URINE 0 /HPF (0-FEW); BILIRUBIN,URINE NEG (NEG); CLARITY,URINE HAZY; COLOR,URINE YELLOW; GLUCOSE,URINE NEG (NEG); NITRITE,URINE NEG (NEG); RBC,URINE OCC /HPF (0-2); SQUAMOUS EPITHELIAL CELL,UR FEW /LPF; UROBILINOGEN,URINE 0.2 mg/dL (0.2 mg/dL)
[2021-04-20] MEDS ORDERED: CEPHALEXIN 250 MG CAPSULE PO ONE (21:00)
[2021-04-20] MEDS ORDERED: POTASSIUM CHLORIDE 20 MEQ TABLET.ER. PO ONE (21:00)
[2021-04-20] MEDS ORDERED: CEPH500T PO (21:08)
[2021-04-20] MEDS ORDERED: MAGNESIUM CITRATE 296 ML SOLUTION. PO ONE (21:15)
== END 2021-04-20 21:40 | disposition home or self-care (01) ==
LOC: ER 18:02
DX: N30.00 Acute cystitis without hematuria (principal); K59.00 Constipation, unspecified; E87.6 Hypokalemia; F10.20 Alcohol dependence, uncomplicated; J44.9 Chronic obstructive pulmonary disease, unspecified; F17.200 Nicotine dependence, unspecified, uncomplicated; Z86.718 Personal history of other venous thrombosis and embolism; Z88.5 Allergy status to narcotic agent; Y90.0 Blood alcohol level of less than 20 mg/100 ml
CPT/HCPCS: 36415; 74177; 80053; 80307; 81001; 83690; 85025; 87086; 96361; 96374; 99285; J3010; J7030; Q9967

== ENCOUNTER 2021-05-20 18:58 | Emergency (ER) | payer OTHER ==
[2021-05-20 17:26] VITALS: BP 146/82
== END 2021-05-20 19:06 | disposition left against medical advice (07) ==
LOC: ER 18:58
DX: F17.210 Nicotine dependence, cigarettes, uncomplicated (principal); Z53.21 Procedure and treatment not carried out due to patient leaving prior to being seen by health care provider

== ENCOUNTER 2021-05-20 21:08 | Emergency (ER) | payer OTHER ==
[~2021-05-20] VITALS: Ht 157.5 cm; Wt 61.3 kg
[2021-05-20 21:13] VITALS: BP 129/81
--- NOTE | 2021-05-20 21:50 | PHYS DOC ---
Past History Past Medical History: Alcoholism, Asthma, Bronchitis, Cancer, COPD Additional Past Medical Histor: DVT and PE in 07/11/2017 (BELLO GUADALUPE APRN) Past Surgical History: Other Additional Past Surgical Histo: COLON MASS REMOVAL (BELLO GUADALUPE APRN) Smoking: Less than 1pk/day Alcohol Use: Heavy Drug Use: None (BELLO GUADALUPE APRN) General Adult EDM: Chief Complaint: MECHANICAL FALL HPI: HPI: Patient is a 61-year-old female who presents to the emergency department for left-sided facial pain and possible fall. Patient was recently seen in this ER following a fall and had a CT of her head, neck and maxillofacial. These were negative for acute findings. Prior to patient getting results, patient left AGAINST MEDICAL ADVICE that she Needs to smoke a cigarette. At that time patient was alert and oriented x4. We did end up getting results for the CT scans and they were negative for any acute findings. Patient is brought into without event. Per EMS she was getting out of a taxicab when her neighbor saw her fall they are unsure if she hit her head as they could not see. Patient denies falling. She is reporting into her left eye where she was noted to have a hematoma from the previous fall. Patient is on Xarelto. She denies any confusion, nausea, vomiting she is requesting food at this time. (BELLO GUADALUPE APRN) Review of Systems: Review of Systems: Eyes: See HPI GI: See HPI Musculoskeletal: See HPI Integument: See HPI Neurologic: See HPI (BELLO GUADALUPE APRN) Allergies: Allergies: Allergies Coded Allergies Type Severity Reaction Last Updated Verified codeine Adverse Reaction Intermediate Nausea and Vomiting 11/24/20 No (BELLO GUADALUPE APRN) Physical Exam: PE: Constitutional: Well developed, well nourished, no acute distress, non-toxic appearance. [] HENT: Normocephalic, no rhinorrhea, bilateral external ears normal, oropharynx moist, no oral exudates, hematoma and ecchymosis noted to right eye with ab rasions letter actively bleeding I attempted to use her menses wounds and patient refused and was uncooperative, nose normal. [] Eyes: PERRL, EOMI, conjunctiva normal, no discharge. [] Neck: Normal range of motion, no bony spinal tenderness, supple, no stridor. [] Cardiovascular: Normal peripheral perfusion Lungs & Thorax: Normal work of breathing, no tachypnea Abdomen: Soft and flat Skin: Warm, dry, no erythema, no rash. [] Back: No tenderness, normal range of motion Extremities: No bony spinal tenderness, no cyanosis, no clubbing, ROM intact, no edema. [] Neurologic: Alert and oriented X 3, normal motor function, normal sensory function, no focal deficits noted. [] Psychologic: Affect normal, judgement normal, mood normal. [] (BELLO GUADALUPE APRN) EKG: EKG: [] (BELLO GUADALUPE APRN) Radiology/Procedures: Radiology/Procedures: []REASON: INjury from 2nd fall tonight, head and face re-injury, neck pain PROCEDURE: CT HEAD AND CERVICAL SPINE WO EXAM: CT HEAD WITHOUT IV CONTRAST CLINICAL HISTORY: Reason: INjury from 2nd fall tonight, head and face re-injury, neck pain / Spl. Instructions: / History: COMPARISON: None. TECHNIQUE: Routine CT of the head without contrast. Soft tissues and bone windows were reviewed. PQRS compliance statement - One or more of the following individualized dose red uction techniques were utilized for this study: 1. Automated exposure control 2. Adjustment of the mA and/or kV according to patient size 3. Use of iterative reconstruction technique FINDINGS: There is no evidence of hemorrhage, mass or extra-axial fluid collection. Marcum-white differentiation is maintained with no evidence of edema. Subcortical, periventricular as well as deep white matter foci of hypoattenuation likely changes of chronic small vessel disease. There is no mass effect or shift of the intracranial structures. The ventricles, basilar cisterns and cortical sulci are normal in size and configuration for the patients stated age. The cerebellum and brainstem are unremarkable. The calvarium demonstrates no evidence of fracture or focal lesion. There is normal aeration of the visualized paranasal sinuses and mastoid air cells. The visualized portions of the orbits are normal. IMPRESSION: 1. No evidence for acute intracranial process. 2. White matter changes likely chronic small vessel disease. EXAM: CT CERVICAL SPINE WITHOUT IV CONTRAST CLINICAL HISTORY: Reason: INjury from 2nd fall tonight, head and face re-injury, neck pain / Spl. Instructions: / History: COMPARISON: None available. TECHNIQUE: Helical CT of the cervical spine was performed. Axial, coronal and sagittal reformatted images were also performed. PQRS compliance statement - One or more of the following individualized dose reduction techniques were utilized for this study: 1. Automated exposure control 2. Adjustment of the mA and/or kV according to patient size 3. Use of iterative reconstruction technique FINDINGS: Vertebral body heights are preserved. No acute fracture. Mild C4-5, C5-6 and C6-7 disc height loss. Small anterior posterior endplate osteophytes are seen C4-5, C5-6 and C6-7. No spondylolisthesis. For incidentally noted congenital of nonfusion of the posterior elements of C1. IMPRESSION: No acute fracture or subluxation of the cervical spine. EXAM: CT facial bones without contrast CLINICAL HISTORY: Reason: INjury from 2nd fall tonight, head and face re-injury, neck pain / Spl. Instructions: / History: COMPARISON: None available. TECHNIQUE: Helical CT of the face/paranasal sinuses was acquired and axial, coronal and sagittal reformatted images were generated. ---PQRS compliance statement - One or more of the following individualized dose reduction techniques were utilized for this study: 1. Automated exposure control 2. Adjustment of the mA and/or kV according to patient size 3. Use of iterative reconstruction technique--- FINDINGS: Marked soft tissue swelling overlying the left orbit with high density components consistent with hematoma. No definite fracture is noted of the facial bones. The visualized paranasal sinuses are well-aerated. No air-fluid levels. The mastoids are unremarkable. The globes, extraocular muscles, optic nerves and retrobulbar fat are normal. Visualized upper aerodigestive tract is normal. Bilateral TMJ degenerative changes are seen. No acute fracture. IMPRESSION: 1. No evidence for acute facial bone fracture. 2. Marked soft tissue swelling and hematoma about the left orbit Electronically signed by: Albert Abdul MD (05/20/2021 10:17 PM) [facility] DICTATED AND SIGNED BY: ALBERT ABDUL MD DATE: 05/20/212209 CC: EMERGENCY,DEPARTMENT; BELLO GUADALUPE APRN; OZIEL GUTIERREZ MD ~MTH0 0 (BELLO GUADALUPE APRN) Heart Score: C/O Chest Pain: N/A Risk Factors: Risk Factors: DM, Current or recent (<one month) smoker, HTN, HLP, family history of CAD, obesity. Risk Scores: Score 0 - 3: 2.5% MACE over next 6 weeks - Discharge Home Score 4 - 6: 20.3% MACE over next 6 weeks - Admit for Clinical Observation Score 7 - 10: 72.7% MACE over next 6 weeks - Early Invasive Strategies (BELLO GUADALUPE APRN) Course & Med Decision Making: Course & Med Decision Making Pertinent Labs and Imaging studies reviewed. (See chart for details) Patient presents to the emergency department for left-sided facial pain and possible fall. Patient was recently seen in this ER following a fall and had a CT of her head, neck and maxillofacial. These were negative for acute findings. Prior to patient getting results, patient left AGAINST MEDICAL ADVICE that she Needs to smoke a cigarette. At that time patient was alert and oriented x4. We did end up getting results for the CT scans and they were negative for any acute findings. Patient is brought into without event. Per EMS she was getting out of a taxicab when her neighbor saw her fall they are unsure if she hit her head as they could not see. Patient denies falling. She is reporting into her left eye where she was noted to have a hematoma from the previous fall. Patient is on Xarelto. CT scan of patient's head, neck and maxillofacial were ordered as patient was reported to have another fall. Patient is alert and oriented x4 at this time. She is able to bear weight and ambulate with a steady gait. Patient is on Xarelto, therefore blood work was ordered. Patient reports that her last tetanus was 9 years ago, this will be updated in the ER. Patient is un cooperative and aggressive towards ER staff. Patients pain treated with tylenol but she refused stating that she wants something different when asked what she wants she stated "im not going to answer that because I don't want you to turn it against me" "I'm not going to come in here and say that I want hydrocodone or morphine for my pain". Patient signed out against medical advice prior to receiving radiology reports, tetanus shot and blood work. Patient is alert and oriented x4, she is ambulatory with steady gait. Patient acknowledges the risks associated with leaving against medical advice including worsening of condition and . (BELLO GUADALUPE APRN) Dragon Disclaimer: Dragon Disclaimer: This electronic medical record was generated, in whole or in part, using a voice recognition dictation system. (BELLO GUADALUPE APRN) Attending Co-Sign The patient was seen and interviewed as well as examined at the bedside. The chart was reviewed. The case was discussed. Agree with the plan of care. (JOHN RUIZ DO) Departure Departure: Impression: Primary Impression: Left against medical advice Disposition: 07 LEFT AGAINST MEDICAL ADVICE Condition: GUARDED Referrals: OZIEL GUTIERREZ MD (PCP) BELLO GUADALUPE APRN May 20, 2021 21:50 JOHN RUIZ DO May 22, 2021 14:16
[2021-05-20] MEDS ORDERED: ACETAMINOPHEN 325 MG TABLET PO ONE (22:15)
--- NOTE | 2021-05-20 22:20 | RAD ---
EXAM: CT HEAD WITHOUT IV CONTRAST CLINICAL HISTORY: Reason: INjury from 2nd fall tonight, head and face re-injury, neck pain / Spl. Ins tructions: / History: COMPARISON: None. TECHNIQUE: Routine CT of the head without contrast. Soft tissues and bone windows were reviewed. PQRS compliance statement - One or more of the following individualized dose reduction techniques wer e utilized for this study: 1. Automated exposure control 2. Adjustment of the mA and/or kV according to patient size 3. Use of iterative reconstruction technique FINDINGS: There is no evidence of hemorrhage, mass or extra-axial fluid collection. Marcum-white differentiation is maintained with no evidence of edema. Subcortical, periventricular as w ell as deep white matter foci of hypoattenuation likely changes of chronic small vessel disease. There is no mass effect or shift of the intracranial structures. The ventricles, basilar cisterns and cortical sulci are normal in size and configuration for the carmel ents stated age. The cerebellum and brainstem are unremarkable. The calvarium demonstrates no evidence of fracture or focal lesion. There is normal aeration of the visualized paranasal sinuses and mastoid air cells. The visualized portions of the orbits are normal. IMPRESSION: 1. No evidence for acute intracranial process. 2. White matter changes likely chronic small vessel disease. EXAM: CT CERVICAL SPINE WITHOUT IV CONTRAST CLINICAL HISTORY: Reason: INjury from 2nd fall tonight, head and face re-injury, neck pain / Spl. Ins tructions: / History: COMPARISON: None available. TECHNIQUE: Helical CT of the cervical spine was performed. Axial, coronal and sagittal reformatted im ages were also performed. PQRS compliance statement - One or more of the following individualized dose reduction techniques wer e utilized for this study: 1. Automated exposure control 2. Adjustment of the mA and/or kV according to patient size 3. Use of iterative reconstruction technique FINDINGS: Vertebral body heights are preserved. No acute fracture. Mild C4-5, C5-6 and C6-7 disc height loss. Small anterior posterior endplate osteophytes are seen C4- 5, C5-6 and C6-7. No spondylolisthesis. For incidentally noted congenital of nonfusion of the posterior elements of C1. IMPRESSION: No acute fracture or subluxation of the cervical spine. EXAM: CT facial bones without contrast CLINICAL HISTORY: Reason: INjury from 2nd fall tonight, head and face re-injury, neck pain / Spl. Ins tructions: / History: COMPARISON: None available. TECHNIQUE: Helical CT of the face/paranasal sinuses was acquired and axial, coronal and sagittal refo rmatted images were generated. ---PQRS compliance statement - One or more of the following individualized dose reduction techniques were utilized for this study: 1. Automated exposure control 2. Adjustment of the mA and/or kV according to patient size 3. Use of iterative reconstruction technique--- FINDINGS: Marked soft tissue swelling overlying the left orbit with high density components consistent with hem atoma. No definite fracture is noted of the facial bones. The visualized paranasal sinuses are well-aerated. No air-fluid levels. The mastoids are unremarkable. The globes, extraocular muscles, optic nerves and retrobulbar fat are normal. Visualized upper aerodigestive tract is normal. Bilateral TMJ degenerative changes are seen. No acute fracture. IMPRESSION: 1. No evidence for acute facial bone fracture. 2. Marked soft tissue swelling and hematoma about the left orbit Electronically signed by: Albert Fernandez MD (05/20/2021 10:17 PM) [facility]
[2021-05-20] MEDS ORDERED: DIPH,PERTUSS(ACELL),TET VAC/PF 0.5 ML SYRINGE. VAX IM ONE (22:30)
== END 2021-05-20 22:23 | disposition left against medical advice (07) ==
LOC: ER 21:08
DX: R51.9 Headache, unspecified (principal); F17.210 Nicotine dependence, cigarettes, uncomplicated; J44.9 Chronic obstructive pulmonary disease, unspecified
CPT/HCPCS: 70450; 70486; 72125; 99285-25

== ENCOUNTER → 2021-05-20 | Emergency (ER) | payer OTHER ==
[~2021-05-20] VITALS: Ht 157.5 cm; Wt 61.3 kg
[~2021-05-20] MED LIST changes: +CEPH500T PO; -DULO60CA6 PO; +DULO60CA7 PO
[2021-05-20 17:26] VITALS: BP 146/82
--- NOTE | 2021-05-20 17:53 | PHYS DOC ---
Past History Past Medical History: Alcoholism, Asthma, Bronchitis, Cancer, COPD Additional Past Medical Histor: DVT and PE in 07/11/2017 (BELLO GUADALUPE APRN) Past Surgical History: Other Additional Past Surgical Histo: COLON MASS REMOVAL (BELLO GUADALUPE APRN) Smoking: Less than 1pk/day Alcohol Use: Heavy Drug Use: None (BELLO GUADALUPE APRN) General Adult EDM: Chief Complaint: MECHANICAL FALL HPI: HPI: Patient is a 61-year-old female who presents to the emergency department today for a fall. Patient reports that she fell from standing. She is unsure if she lost consciousness, picked fall was witnessed. Patient reports that she takes Xarelto. She denies any pain, n/v. She states that she has drank alcohol today but will not answer how much she had to drink because she stated that it is unrelated to why she is being seen in the ER. Patient is uncooperative with care and answering questions. Patient is noted to have ecchymosis and an abrasion to her l. eye. (BELLO GUADALUPE APRN) Review of Systems: Review of Systems: Eyes: see HPI GI: see HPI Musculoskeletal: see HPI Integument: see HPI Neurologic: see HPI (BELLO GUADALUPE APRN) Allergies: Allergies: Allergies Coded Allergies Type Severity Reaction Last Updated Verified codeine Adverse Reaction Intermediate Nausea and Vomiting 11/24/20 No (BELLO GUADALUPE APRN) Physical Exam: PE: Constitutional: Well developed, well nourished, no acute distress, non-toxic appearance. [] HENT: Normocephalic, bilateral external ears normal, oropharynx moist, no rhinorrhea, ecchymosis noted to l. eye with an abrasion to l. eye brow and below l. eye, no oral exudates, nose normal. [] Eyes: PERRL, EOMI, conjunctiva normal, no discharge. [] Neck: Normal range of motion, no bony spinal tenderness, supple, no stridor. [] Cardiovascular:Heart rate regular rhythm, no murmur [] Lungs & Thorax: Bilateral breath sounds clear to auscultation [] Abdomen: Bowel sounds normal, soft, no tenderness, no masses, no pulsatile masses. [] Skin: Warm, dry, no erythema, no rash. [] Back: No bony spinal tenderness, normal range of motion Extremities: No tenderness, no cyanosis, no clubbing, ROM intact, no edema. [] Neurologic: Alert and oriented X 3, normal motor function, normal sensory function, no focal deficits noted. [] Psychologic: Affect normal, judgement normal, mood normal. [] (BELLO GUADALUPE APRN) Current Patient Data: Vital Signs: Vital Signs Date Time Temp Pulse Resp B/P (MAP) Pulse Ox O2 Delivery O2 Flow Rate FiO2 05/20/21 17:26 98.3 87 16 146/82 (103) 98 Room Air (BELLO GUADALUPE APRN) EKG: EKG: [] (BELLO GUADALUPE APRN) Radiology/Procedures: Radiology/Procedures: []PROCEDURE: CT HEAD AND MAXILLOFACIAL WO CT Head W/O Contrast: History: Reason: Fall, headache, left sided facial swelling w/contusion, neck pain Comparison: none Axial images were obtained without contrast. There is moderate diffuse atrophy. There is no mass effect, extraaxial fluid collections or hydrocephalus. There is no gross bleed. There is no focal loss of quintana-white matter distinction to suggest acute ischemia, i.e. stroke. Impression: No acute intracranial findings. End impression CT maxillofacial without contrast History: Pain status post fall Axial helical images of the face were obtained without contrast. Axial and coronal reconstruction was performed. There is a hematoma anterior to the left maxillary sinus. The nasal septum is mostly midline. The ostiomeatal complexes are narrow but patent. The paranasal sinuses are clear. The visualized osseous structures appear intact. The orbits appear normal. Impression: Hematoma anterior left maxillary sinus. No acute bony abnormality identified. End impression CT C-Spine without contrast: Clinical History: Reason: Fall, headache, left sided facial swelling w/contusion, neck pain / Spl. Instructions: / History: Technique: Axial helical images of the cervical spine were obtained without contrast, axial coronal and sagittal reconstruction was performed. 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 There is no loss of vertebral body stature. There is no prevertebral soft tissue swelling. The vertebral bodies are well aligned. The C1-C2 relationship is normal. The visualized osseous structures appear normal. Evaluation of the central canal is limited without contrast. There is multiple posterior disc bulges resulting in flattening of the thecal sac. There does not appear to be gross flattening of the cervical cord. There is moderate narrowing of multiple neuroforamen. Impression: No acute findings. Clinical correlation suggested. PQRS Compliance Statement: One or more of the following individualized dose reduction techniques were utilized for this examination: 1. Automated exposure control 2. Adjustment of the mA and/or kV according to patient size 3. Use of iterative reconstruction technique Electronically signed by: Yoli Alexis III, MD (05/20/2021 6:32 PM) [facility] DICTATED AND SIGNED BY: YOLI ALEXIS III, MD DATE: 05/20/211816 CC: EMERGENCY,DEPARTMENT; BELLO GUADALUPE APRN; OZIEL GUTIERREZ MD ~MTH0 0 (BELLO GUADALUPE APRN) Heart Score: C/O Chest Pain: N/A Risk Factors: Risk Factors: DM, Current or recent (<one month) smoker, HTN, HLP, family history of CAD, obesity. Risk Scores: Score 0 - 3: 2.5% MACE over next 6 weeks - Discharge Home Score 4 - 6: 20.3% MACE over next 6 weeks - Admit for Clinical Observation Score 7 - 10: 72.7% MACE over next 6 weeks - Early Invasive Strategies (BELLO GUADALUPE APRN) Course & Med Decision Making: Course & Med Decision Making Pertinent Labs and Imaging studies reviewed. (See chart for details) Patient presents to the emergency department following a fall. Patient arrived via EMS. Patient is not having any complaints at this time. However, she is noted to have ecchymosis and abrasion to her left eye. CT scan was performed of patient's head, maxillofacial and neck. Imaging performed in the ER were negative for any acute findings. Patient was noted to have a hematoma. Abrasions do not require repair. Patient is requesting to leave the emergency department to smoke. She was notified that she cannot smoke cigarettes on campus. Patient left AGAINST MEDICAL ADVICE. Patient aware of the risks associated with advanced medical advice including worsening of condition and . patient alert and oriented, ambulatory with steady gait. (BELLO GUADALUPE APRN) Dragon Disclaimer: Dragon Disclaimer: This electronic medical record was generated, in whole or in part, using a voice recognition dictation system. (BELLO GUADALUPE APRN) Attending Co-Sign The patient was seen and interviewed as well as examined at the bedside. The chart was reviewed. The case was discussed. Agree with the plan of care. (JOHN RUIZ DO) Departure Departure: Impression: Primary Impression: Left against medical advice Disposition: 07 LEFT AWOL/ELOPED Condition: STABLE Referrals: OZIEL GUTIERREZ MD (PCP) BELLO GUADALUPE APRN May 20, 2021 17:53 JOHN RUIZ DO May 21, 2021 05:56
--- NOTE | 2021-05-20 18:34 | RAD ---
CT Head W/O Contrast: History: Reason: Fall, headache, left sided facial swelling w/contusion, neck pain Comparison: none Axial images were obtained without contrast. There is moderate diffuse atrophy. There is no mass effect, extraaxial fluid collections or hydroceph alus. There is no gross bleed. There is no focal loss of quintana-white matter distinction to suggest a cute ischemia, i.e. stroke. Impression: No acute intracranial findings. End impression CT maxillofacial without contrast History: Pain status post fall Axial helical images of the face were obtained without contrast. Axial and coronal reconstruction was performed. There is a hematoma anterior to the left maxillary sinus. The nasal septum is mostly midline. The ostiomeatal complexes are narrow but patent. The paranasal si nuses are clear. The visualized osseous structures appear intact. The orbits appear normal. Impression: Hematoma anterior left maxillary sinus. No acute bony abnormality identified. End impression CT C-Spine without contrast: Clinical History: Reason: Fall, headache, left sided facial swelling w/contusion, neck pain / Spl. In structions: / History: Technique: Axial helical images of the cervical spine were obtained without contrast, axial coronal and sagittal reconstruction was performed. 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 There is no loss of vertebral body stature . There is no prevertebral soft tissue swelling. The vertebral bodies are well aligned. The C1-C2 relationship is normal. The visualized osseous structures appear normal. Evaluation of the central ca nal is limited without contrast. There is multiple posterior disc bulges resulting in flattening of t he thecal sac. There does not appear to be gross flattening of the cervical cord. There is moderate n arrowing of multiple neuroforamen. Impression: No acute findings. Clinical correlation suggested. PQRS Compliance Statement: One or more of the following individualized dose reduction techniques were utilized for this examinat ion: 1. Automated exposure control 2. Adjustment of the mA and/or kV according to patient size 3. Use of iterative reconstruction technique Electronically signed by: Ward Hawk III, MD (05/20/2021 6:32 PM) [facility]
== END | disposition left against medical advice (07) ==
LOC: ER 17:19
DX: S05.12XA Contusion of eyeball and orbital tissues, left eye, initial encounter (principal); F10.20 Alcohol dependence, uncomplicated; J44.9 Chronic obstructive pulmonary disease, unspecified; F17.200 Nicotine dependence, unspecified, uncomplicated; Z88.5 Allergy status to narcotic agent; Y90.9 Presence of alcohol in blood, level not specified; W18.39XA Other fall on same level, initial encounter; Y93.89 Activity, other specified; Y92.89 Other specified places as the place of occurrence of the external cause; Y99.8 Other external cause status
CPT/HCPCS: 70450; 70486; 72125; 99285-25

== ENCOUNTER 2021-11-18 06:31 | Emergency (ER) | payer OTHER ==
[~2021-11-18] VITALS: Ht 157.5 cm; Wt 62.2 kg
[~2021-11-18 06:31] MED LIST changes: -CYCL-331 PO; +CYCL10TA19 PO
[2021-11-18] MEDS ORDERED: HYDROcodone/APAP 5/325MG 1 TAB TABLET PO ONE ×2 (06:45→07:15)
--- NOTE | 2021-11-18 07:35 | RAD ---
Three-view left ankle dated 11/18/2021. No comparison available. CLINICAL INDICATION: Pain. FINDINGS: 3 views left ankle show normal bony alignment. No displaced fracture. No periostitis or bone destruct ion. No acute osseous or articular abnormality. Mild soft tissue swelling. Talar dome is intact. Mild hypertrophic change of the tibiotalar joint and joints of midfoot. IMPRESSION: No acute radiographic abnormality. Electronically signed by: Manny Cortes MD (11/18/2021 7:33 AM) [facility]
--- NOTE | 2021-11-18 08:01 | PHYS DOC ---
Past History Past Medical History: Alcoholism, Asthma, Bronchitis, Cancer, COPD Additional Past Medical Histor: DVT and PE in 07/11/2017 Past Surgical History: Other Additional Past Surgical Histo: COLON MASS REMOVAL Smoking: Less than 1pk/day Alcohol Use: Heavy Drug Use: None General Adult EDM: Chief Complaint: ANKLE PROBLEM HPI: HPI: Patient is a 61-year-old female with left ankle pain. Patient states that she twisted her ankle when she had a mini seizure. Patient states that she has had many seizures for many years. She does not take any medications for these, these are normal for her though. In any case she twisted her left ankle and has pain and swelling over the lateral aspect, not able to bear weight secondary to pain. No other injuries or complaints. Review of Systems: Review of Systems: Constitutional: Denies fever Eyes: Denies change in visual acuity or eye pain HENT: Denies sore throat Respiratory: Denies shortness of breath Cardiovascular: Denies chest pain GI: Denies abd pain : Denies dysuria Musculoskeletal: Denies back injury Integument: Denies rash or skin lesions Neurologic: Denies headache, focal weakness or sensory changes All other systems were reviewed and found to be within normal limits, except as documented in this note. Current Medications: Current Meds: Current Medications Medications (Trade) Dose Ordered Sig/[facility] Start Time Stop Time Status Last Admin Dose Admin Acetaminophen/ Hydrocodone Bitart (Lortab 5/325) 1 tab 1X ONCE 11/18/21 07:15 11/18/21 07:16 DC 11/18/21 07:14 1 TAB Allergies: Allergies: Allergies Coded Allergies Type Severity Reaction Last Updated Verified codeine Adverse Reaction Intermediate Nausea and Vomiting 11/24/20 No Physical Exam: PE: Constitutional: Well developed, well nourished, no acute distress, non-toxic appearance. HENT: Normocephalic, atraumatic, bilateral external ears normal, mucosa moist, nose normal. Eyes: EOMI, conjunctiva normal, no discharge. Neck: Normal range of motion, supple, no stridor, no meningeal signs. Cardiovascular: Regular rate and rhythm Lungs & Thorax: Bilateral breath sounds clear to auscultation Abdomen: Soft, no tenderness or obvious masses Skin: Warm, dry, no erythema, no rash. Extremities: No cyanosis, no clubbing, ROM intact, no edema. Patient is tender over the lateral malleoli of the left ankle. There is mild erythema and swelling present as well. Neurologic: Alert and oriented, normal motor function, normal sensory function, no focal deficits noted. Psychologic: Affect normal, judgement normal, mood normal. Current Patient Data: Vital Signs: Vital Signs Date Time Temp Pulse Resp B/P (MAP) Pulse Ox O2 Delivery O2 Flow Rate FiO2 11/18/21 07:14 20 95 11/18/21 06:31 98.3 90 96/60 (72) Room Air EKG: EKG: [] Radiology/Procedures: Radiology/Procedures: [] Impressions: PATIENT: LUPILLO STEWART ACCOUNT: [id number] : 1960 LOCATION: ER AGE: 61 SEX: F EXAM STATUS: REG ER ORD. PHYSICIAN: JOE HOLLIS MD REASON: pain, swelling PROCEDURE: ANKLE LEFT 3V Three-view left ankle dated 11/18/2021. No comparison available. CLINICAL INDICATION: Pain. FINDINGS: 3 views left ankle show normal bony alignment. No displaced fracture. No periostitis or bone destruction. No acute osseous or articular abnormality. Mild soft tissue swelling. Talar dome is intact. Mild hypertrophic change of the tibiotalar joint and joints of midfoot. IMPRESSION: No acute radiographic abnormality. Electronically signed by: Manny Cortes MD (11/18/2021 7:33 AM) [facility] [place] [facility] [place] AND SIGNED BY: MANNY CORTES MD DATE: 11/18/21 0732 CC: OZIEL GUTIERREZ MD; JOE HOLLIS MD ~ Heart Score: C/O Chest Pain: No Risk Factors: Risk Factors: DM, Current or recent (<one month) smoker, HTN, HLP, family history of CAD, obesity. Risk Scores: Score 0 - 3: 2.5% MACE over next 6 weeks - Discharge Home Score 4 - 6: 20.3% MACE over next 6 weeks - Admit for Clinical Observation Score 7 - 10: 72.7% MACE over next 6 weeks - Early Invasive Strategies Course & Med Decision Making: Course & Med Decision Making Pertinent Labs and Imaging studies reviewed. (See chart for details) [] This is a 61-year-old female presents with left ankle pain after twisting her ankle. X-rays negative for fracture, subluxation or dislocation. Patient was given 2 tablets of [place] with with some relief of pain. We will place her in an [place] wrap and have her use crutches until she is able to bear weight, she is stable for discharge at this time. Dragon Disclaimer: Dragon Disclaimer: This electronic medical record was generated, in whole or in part, using a voice recognition dictation system. Departure Departure: Impression: Primary Impression: Ankle sprain Disposition: 01 HOME / SELF CARE / HOMELESS Condition: STABLE Referrals: OZIEL GUTIERREZ MD (PCP) Patient Instructions: Ankle Sprain JOE HOLLIS MD Nov 18, 2021 08:01
[2021-11-18 09:00] VITALS: BP 106/66
== END 2021-11-18 09:00 | disposition home or self-care (01) ==
LOC: ER 06:31
DX: S93.402A Sprain of unspecified ligament of left ankle, initial encounter (principal); F10.20 Alcohol dependence, uncomplicated; J44.9 Chronic obstructive pulmonary disease, unspecified; F17.200 Nicotine dependence, unspecified, uncomplicated; Z88.5 Allergy status to narcotic agent; Y90.9 Presence of alcohol in blood, level not specified; X50.9XXA Other and unspecified overexertion or strenuous movements or postures, initial encounter; Y93.89 Activity, other specified; Y92.89 Other specified places as the place of occurrence of the external cause; Y99.8 Other external cause status
CPT/HCPCS: 73610; 99283